=== PATIENT | female | born 1945 | race Caucasian/White ===

== ENCOUNTER 2022-08-04 08:21 | Outpatient (REF) | payer MEDICARE, SELFPAY ==
[2022-08-04 11:19] LABS: MANUAL DIFF FLAG NO
[2022-08-04 11:32] LABS: Basophils Percent Auto 0.6 % (0-2); Eosinophils Absolute Auto 0.1 X10*3/uL (0.0-0.4); Eosinophils Percent Auto 1.5 % (0-4); Hematocrit 43.3 % (37.0-47.0); Hemoglobin 14.1 g/dl (12.0-16.0); Imm Gran Abs Auto 0.01 X10*3/uL (0.00-0.03); Imm Gran Pct Auto 0.2 % (0.0-0.4); Lymphocytes Absolute Auto 2.1 X10*3/uL (1.2-4.9); Lymphocytes Percent Auto 40.3 % (20-40); Mean Corpuscular HGB Conc 32.6 g/dl (31.0-35.0); Mean Corpuscular Hemoglobin 31.3 pg (27.0-33.0); Mean Platelet Volume 11.3 fL (9.4-12.3); Monocytes Absolute Auto 0.5 X10*3/uL (0.1-1.2); Neutrophils Absolute Auto 2.5 x10*3/uL (2.0-8.3); Neutrophils Percent Auto 47.4 % (45-73); Platelet Count 287 X10*3/uL (160-400); Red Blood Count 4.51 X10*6/uL (4.20-5.50); Red Cell Distribution Width 13.1 % (11.0-16.0); White Blood Count 5.3 X10*3/uL (4.8-10.8)
[2022-08-04 12:45] LABS: Alanine Aminotransferase 21 U/L (0-31); Albumin Level 4.3 g/dL (3.5-5.0); Alkaline Phosphatase 85 U/L (39-117); Anion Gap 12 (12-20); Aspartate Amino Transferase 20 U/L (5-31); Bilirubin Total 0.8 mg/dL (0.0-1.0); Blood Urea Nitrogen 15 mg/dL (9-16); Calcium 9.4 mg/dL (8.4-10.2); Carbon Dioxide 28 mmol/L (22-29); Chloride 107 mmol/L (96-108); Cholesterol 213 mg/dL; Estimated Glomerular Filt Rate > 60; Glucose Fasting 108 mg/dL (60-99); HDL Cholesterol 52 mg/dL; LDL Cholesterol Calculated 132 mg/dl; Potassium 4.3 mmol/L (3.3-5.1); Sodium 143 mmol/L (135-145); Total Protein 6.6 g/dL (6.5-8.0); Triglycerides 148 mg/dL; Vitamin D 25-OH Total 23.6 ng/mL (>30)
== END 2022-08-04 08:22 | disposition home or self-care (01) ==
LOC: HO.HMGCLDS 08:21
PROVIDERS: PCP Internal Medicine; Visit Provider Internal Medicine
DX: E78.5 Hyperlipidemia, unspecified (principal); I10 Essential (primary) hypertension; M47.816 Spondylosis without myelopathy or radiculopathy, lumbar region
CPT/HCPCS: 36415; 80053; 80061; 82306; 84443; 85025

== ENCOUNTER 2022-08-09 08:24 | Outpatient (REF) | payer MEDICARE, SELFPAY ==
--- NOTE | ~2022-08-09 | MM_ITS ---
EXAMINATION: BONE DENSITOMETRY CLINICAL INDICATION: Asymptomatic menopausal state. COMPARISON: None (current study represents initial baseline exam). TECHNIQUE: Using a [employer] DXA System (software version: 13.1) manufactured by [employer], dual-energy x-ray absorptiometry was performed of the lumbar spine, left hip and left forearm radius 33%. The images are of good technical quality. Summary results are attached. FINDINGS: AP SPINE L1-L4 (excluding L3): The data of L1-L4 has been changed to exclude the L3 vertebral body because degenerative changes at this level may cause overestimation of the lumbar spine density. BMD 1.240 g/cm2, Z-score 2.5, T-score 0.6, normal. LEFT FEMUR, NECK: BMD 0.885 g/cm2, Z-score 1.0, T-score -1.1, osteopenia. LEFT FEMUR, TOTAL: BMD 1.005 g/cm2, Z-score 1.9, T-score 0.0, normal. LEFT FOREARM RADIUS 33%: BMD 0.710 g/cm2, Z-score 0.6, T-score -1.9, osteopenia. IDENTIFIED RISK FACTORS: Early menopause, secondary osteoporosis, hysterectomy. HISTORY OF FRACTURE: None listed. MEDICATIONS: Calcium supplements or multivitamin, vitamin D. MM/XR DEXA axial skeleton IMPRESSION: 1. DIAGNOSIS: Osteopenia based on the lowest T-score value of -1.9 in the forearm radius 33% applying World Health Organization criteria. 2. 10-YEAR FRACTURE RISK PREDICTION, FRAX: Major osteoporotic fracture (clinical spine, forearm, hip or shoulder) 11.0%. Hip fracture 2.0%. 3. Treatment Recommendations: NOF guidelines recommend consideration for treatment in postmenopausal women and men age 50 and older presenting with the following: -A hip or vertebral (clinical or morphometric) fracture. -T-score less than or equal to -2.5 at the femoral neck or spine after appropriate evaluation to exclude secondary causes. -Low bone mass at the hip or spine and a 10-year fracture probability by FRAX of greater than or equal to 3% for hip fracture or greater than or equal to 20% for major osteoporotic fracture based on the [place] adapted WHO algorithm. 4. Other Recommendations: All treatment decisions require clinical judgment and consideration of individual patient factors, including patient preferences, comorbidities, previous drug use, risk factors not captured in the FRAX model (e.g. frailty, falls, vitamin D deficiency, increased bone turnover, interval significant decline in bone density) and possible under or overestimation of fracture risk by FRAX. Additional medical evaluation for secondary cause of low bone mineral density may be appropriate. FUTURE SCAN RECOMMENDATION: People with diagnosed cases of osteoporosis or at high risk for fracture should have regular bone mineral density tests. For patients eligible for Medicare, routine testing is allowed once every 2 years. The testing frequency can be increased to one year for patients who have rapidly progressing disease, those who are receiving or discontinuing medical therapy to restore bone mass, or have additional risk factors.
== END 2022-08-09 08:25 | disposition home or self-care (01) ==
LOC: HO.MAMMO 08:24
PROVIDERS: PCP Internal Medicine; Visit Provider Internal Medicine
DX: Z13.820 Encounter for screening for osteoporosis (principal); Z78.0 Asymptomatic menopausal state
CPT/HCPCS: 77080

== ENCOUNTER → 2022-08-10 07:18 | Outpatient (REF) | payer MEDICARE, SELFPAY ==
--- NOTE | 2022-08-10 07:23 | CA_ITS ---
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 The visually estimated ejection fraction is between 65-70%. - No obvious valvular pathology seen on this study. Findings Left Ventricle Normal left ventricular cavity size. There is normal left ventricular wall thickness. The left ventricular systolic function is normal. The visually estimated ejection fraction is between 65-70%. There is no evidence of regional wall motion abnormalities. Diastolic function is normal for age. LV peak GLS -16.7%. Possible underestimation. Right Ventricle Normal right ventricular cavity size. There is normal right ventricular systolic function. Atria Both atria are normal in size. Aortic Valve There is a normal trileaflet aortic valve. There is no aortic valve stenosis. There is no aortic valve regurgitation. Mitral Valve The mitral valve appears normal. There is no mitral valve regurgitation. There is no mitral valve stenosis. Pulmonic Valve The pulmonic valve is likely normal. Tricuspid Valve There is no tricuspid valve regurgitation. Tricuspid regurgitation envelope is inadequate for calculation of right ventricular systolic pressure. Great Vessels The asc aorta is normal in size. Venous The inferior vena cava is normal in size and collapses greater than 50% with inspiration. Pericardium/Pleural Prominent epicardial adipose tissue noted. There is no evidence of pericardial effusion. Prior Study Comparison No prior study available for comparison. Recommendations, Care & Conclusions No obvious valvular pathology seen on this study. Measurements 2D Linear Measurements IVSd: 0.73 0.6-0.9/0.6-1.0 cm LVIDd: 4.42 3.9-5.3/4.2-5.9 cm LVIDd Index: 2.70 2.4-3.2/2.2-3.1 cm/m2 LVIDs: 3.28 2.0-3.6 cm LA Diam: 3.20 2.7-3.8/3.0-4.0 cm LAIDs Index: 1.95 1.5-2.3 cm/m2 LVOT Diam: 1.90 3.0+(-)1.3 cm 2D Systolic Function EF 4C: 67.90 >55% EF 2C: 77.50 >55% EF BiP: 72.70 >55% Mitral Valve MV Pk E: 0.66 MV PK A: 0.90 MV Decel Time: 165.00 E/A: 0.70 E'Lateral: 5.77 E'Medial: 4.79 E/E' Med: 13.90 E/E' Lat: 11.50 PHT: 48.00 MVA PHT: 4.58 Decel [place]: 4.02 Aortic Valve AoV Pk [place]: 1.08 AoV Mn [place]: 0.82 AoV VTI: 0.24 AoV Pk Grad: 5.00 Aov Mn Grad: 3.00 JENY Cont.VTI: 2.70 LVOT LVOT Pk [place]: 1.05 LVOT Mn [place]: 0.70 LVOT VTI: 0.22 LVOT Pk Grad: 4.00 LVOT Mn Grad: 2.00 LVOT Diam: 1.90 LVOT Area: 2.84 Diastolic Function MV Pk E: 0.66 MV Pk A: 0.90 E/A: 0.70 E'Medial: 4.79 E/E' Med: 13.90 E' Laterial: 5.77 E/E' Lat: 11.50 Right Ventricle TAPSE (mm): 17.10 TVS' [place]: 8.60 Tricuspid Valve RA Press: 3.00 Great Vessels Aorta Sinus of Valsalva: 2.90 2.0-3.5 cm Ao Asc: 2.90 2.1-3.4 cm Pulmonary Valve PV Pk [place]mo: 0.73 Peak PV Grad: 2.00 Updated in Other Vendor System with Status of Final Juaquin Macdonald MD electronically signed on 08/13/2022 1:10:11 PM with status of Final
== END ==
LOC: HO.CARD 07:18
PROVIDERS: PCP Internal Medicine; Visit Provider Internal Medicine
DX: I10 Essential (primary) hypertension (principal); R06.09 Other forms of dyspnea; R60.9 Edema, unspecified
CPT/HCPCS: 93306; 93356

== ENCOUNTER 2022-11-18 08:21 | Outpatient (REF) | payer MEDICARE, SELFPAY ==
--- NOTE | ~2022-11-18 | CT_ITS ---
EXAMINATION: CT ABDOMEN WITHOUT CONTRAST CLINICAL INFORMATION: Specified disorders of adrenal gland. COMPARISON: Ultrasound abdomen complete 02/22/2016. TECHNIQUE: Contiguous axial thin section helical images of the abdomen were performed without contrast. The data set was reformatted in the coronal and sagittal planes and reviewed on an independent workstation. This CT examination was performed using dose optimization techniques as appropriate, variously including the following: *Automated exposure control *Adjustment of mA and/or kV according to patient size (this includes techniques or standardized protocols for targeted exams where dose is matched to indication/reason for exam; i.e. extremities or head) *Use of iterative reconstruction technique DLP: 158 mGy-cm. FINDINGS: LUNG BASES: The lung bases are clear. Heart size is normal. LIVER, GALLBLADDER, BILIARY TREE: The liver is normal size, density. There is multiple hypodense lesions. The largest right hepatic lobe measures 2.0 cm and approximately 9 Hounsfield units. There is no intrahepatic ductal dilatation. There is a solitary 8 mm radiopaque gallstone. There is no gallbladder wall thickening. PANCREAS: The pancreas unremarkable. SPLEEN: Spleen is normal size and appears unremarkable. ADRENAL GLANDS AND KIDNEYS: There is a left adrenal lesion measuring 2.1 x 1.8 x 2.2 cm and 31 Hounsfield units. The right adrenal gland is normal. Both kidneys are normal size, shape and position. Radiopaque renal calculi or hydronephrosis seen. There is no perinephric stranding. BOWEL LOOPS: There is moderate scattered stool in colon. The small bowel loops are normal caliber. Appendix is not included in the [id number]. No inflammatory process seen abdomen or pelvis. LYMPH NODES: Normal. VASCULAR: Unremarkable. BONES: There is degenerative disc changes throughout the lumbar spine with moderate ventral spondylosis. No acute fracture or lytic process seen. CT/CT abdomen wo IV con IMPRESSION: Left adrenal 2.2 cm lesion measuring 35 HU, not an adenoma. Recommend followup with adrenal protocol with and without contrast and delayed images. Multiple liver lesions previously recorded as cysts by ultrasound. Moderate constipation. Gallstone without wall thickening. Fleischner guidelines were followed.
== END 2022-11-18 08:22 | disposition home or self-care (01) ==
LOC: HO.CT 08:21
PROVIDERS: PCP Internal Medicine; Visit Provider Internal Medicine
DX: E27.8 Other specified disorders of adrenal gland (principal)
CPT/HCPCS: 74150

== ENCOUNTER 2022-11-28 09:35 | Outpatient (REF) | payer MEDICARE, SELFPAY ==
[2022-11-28 12:50] LABS: Anion Gap 10 (12-20); Blood Urea Nitrogen 13 mg/dL (9-16); Calcium 8.9 mg/dL (8.4-10.2); Carbon Dioxide 28 mmol/L (22-29); Chloride 109 mmol/L (96-108); Estimated Glomerular Filt Rate > 60; Glucose Random 102 mg/dL (60-115); Potassium 4.3 mmol/L (3.3-5.1); Sodium 143 mmol/L (135-145)
[2022-11-28 12:57] LABS: Vitamin B12 1745 pg/mL (200-900); Vitamin D 25-OH Total 29.2 ng/mL (>30)
== END 2022-11-28 09:36 | disposition home or self-care (01) ==
LOC: HO.HMGCLDS 09:35
PROVIDERS: PCP Internal Medicine; Visit Provider Internal Medicine
DX: I10 Essential (primary) hypertension (principal); E78.5 Hyperlipidemia, unspecified
CPT/HCPCS: 36415; 80048; 82306; 82607; 82746

== ENCOUNTER 2022-12-05 12:57 | Outpatient (REF) | payer MEDICARE, SELFPAY ==
--- NOTE | ~2022-12-05 | CT_ITS ---
EXAMINATION: CT ABDOMEN WITHOUT AND WITH CONTRAST CLINICAL INFORMATION: Adrenal mass protocol. COMPARISON: CT abdomen without IV contrast 11/18/2022. TECHNIQUE: Contiguous axial thin section helical images of the abdomen were performed before and after the administration of oral contrast and 85 mL of Omnipaque 350 intravenous contrast. The data set was reformatted in the coronal and sagittal planes and reviewed on an independent workstation. This CT examination was performed using dose optimization techniques as appropriate, variously including the following: *Automated exposure control *Adjustment of mA and/or kV according to patient size (this includes techniques or standardized protocols for targeted exams where dose is matched to indication/reason for exam; i.e. extremities or head) *Use of iterative reconstruction technique DLP: 436 mGy-cm FINDINGS: LUNG BASES: Minimal atelectatic changes seen in the right and lower lobe anterobasal segment and left lung base. Heart size normal. LIVER, GALLBLADDER, AND BILIARY TREE: The liver is normal size and contour with multiple hypodense lesions most likely simple cysts. Largest left hepatic lobe cyst measures 1.3 cm and right hepatic lobe cyst measures 1.80 cm. There is a solitary 8 mm gallstone without wall thickening. PANCREAS: The pancreas is homogeneous in echotexture and appears unremarkable. SPLEEN: The spleen is normal size and density. ADRENAL GLANDS AND KIDNEYS: There is enlarged 1.9 cm left adrenal gland measuring 23 Hounsfield units precontrast, 79 Hounsfield units postcontrast and 35 HU on 15 minute delayed exam. The absolute washout is 61.7%. The related washout is 43.0% consistent with an adenoma. The right adrenal gland is normal. The kidneys are normal size and position. Postcontrast partially visualized upper pole kidneys are unremarkable. No radiopaque calculi seen. BOWEL LOOPS: Scattered stool is seen in the colon. The small bowel loops are unremarkable. Appendix is not in the [id number]. LYMPH NODES: No abnormal-size lymph node seen. VASCULAR: The aorta is ectatic but nondilated. BONES: No aggressive lytic or sclerotic process seen. CT/CT abdomen wo/w IV con IMPRESSION: 1. Left adrenal adenoma. 2. Multiple hepatic cysts. 3. Solitary gallstone without wall thickening. Fleischner guidelines were followed.
[2022-12-05] MEDS: iohexoL 350 MG/ML 100 ML INFUS..BTL 85 ML IV (14:11)
== END 2022-12-05 12:58 | disposition home or self-care (01) ==
LOC: HO.CT 12:57
PROVIDERS: Visit Provider Internal Medicine
DX: E27.8 Other specified disorders of adrenal gland (principal)
CPT/HCPCS: 74170; Q9967

== ENCOUNTER 2023-03-01 08:14 | Outpatient (REF) | payer MEDICARE, SELFPAY ==
[2023-03-01 11:58] LABS: Alanine Aminotransferase 17 U/L (0-31); Albumin Level 4.3 g/dL (3.5-5.0); Alkaline Phosphatase 76 U/L (39-117); Anion Gap 11 (12-20); Aspartate Amino Transferase 23 U/L (5-31); Bilirubin Total 0.8 mg/dL (0.0-1.0); Blood Urea Nitrogen 18 mg/dL (9-16); Calcium 9.5 mg/dL (8.4-10.2); Carbon Dioxide 27 mmol/L (22-29); Chloride 108 mmol/L (96-108); Cholesterol 218 mg/dL; Estimated Glomerular Filt Rate > 60; Glucose Fasting 105 mg/dL (60-99); HDL Cholesterol 49 mg/dL; LDL Cholesterol Calculated 142 mg/dl; Potassium 4.2 mmol/L (3.3-5.1); Sodium 142 mmol/L (135-145); Total Protein 6.8 g/dL (6.5-8.0); Triglycerides 136 mg/dL
[2023-03-01 12:23] LABS: Folate 14.6 ng/mL (> or = 4.0); Vitamin B12 1023 pg/mL (200-900); Vitamin D 25-OH Total 53.5 ng/mL (>30)
== END 2023-03-01 08:15 | disposition home or self-care (01) ==
LOC: HO.HMGCLDS 08:14
PROVIDERS: PCP Internal Medicine; Visit Provider Internal Medicine
DX: R06.09 Other forms of dyspnea (principal); I10 Essential (primary) hypertension; E78.5 Hyperlipidemia, unspecified
CPT/HCPCS: 36415; 80053; 80061; 82306; 82607; 82746

== ENCOUNTER 2023-04-28 08:20 | Outpatient (REF) | payer MEDICARE, SELFPAY ==
[2023-04-28 13:52] LABS: Vitamin B12 786 pg/mL (200-900)
== END 2023-04-28 08:21 | disposition home or self-care (01) ==
LOC: HO.HMGCLDS 08:20
PROVIDERS: PCP Internal Medicine; Visit Provider Internal Medicine
DX: R79.89 Other specified abnormal findings of blood chemistry (principal)
CPT/HCPCS: 36415; 82607; 82746

== ENCOUNTER 2023-05-04 10:35 | Outpatient (AMB) | payer MEDICARE, SELFPAY ==
[2023-05-04 10:54] VITALS: BP 116/64; PULSE 86; O2SAT 96; BMI 25.0
--- NOTE | 2023-05-04 10:54 | AM.OFFVISMDC ---
Intake Vital Signs 05/04/23 10:54 Height 5 ft 3 in Weight 141 lb BMI 25.0 BP 116/64 Blood Pressure Location Lt brachial Position Sitting Pulse 86 Pulse Source Pulse Oximeter Pulse Oximetry (%) 96 Oxygen Delivery Method Room Air Intake Visit Reasons: SWV [id number] Intake Note: Pt is here today for AWV. Pt states that she would like to ask dr Serrano about mammogram and pneumonia vaccine. Allergies lisinopril Adverse Reaction (Intermediate, Verified 05/04/23 10:54) cough Medication List - Last Reconciled 05/04/23 by Cristin Serrano MD acetaminophen ER (Tylenol Arthritis Pain) 650 mg PO Q12H atorvastatin 40 mg PO DAILY cholecalciferol (vitamin D3) 50 mcg PO DAILY orledksz-grv-azjn-FA-lutein (Centrum Silver Women) PO olmesartan 20 mg PO DAILY omeprazole 20 mg PO DAILY HPI HPI Comments History of Present Illness Details Pt presents for annual. Initiated the conversation about Advanced Directives. Advanced Directives help? patients prepare for current and future decisions about their medical treatment? and place of care. Discussed with patient that it is a process where a patients? current condition and prognosis are reviewed, their wishes for information? regarding their illness are elicited, and likely medical dilemmas are presented? and options discussed. The form can be amended as needed, reviewed yearly and? make changes as needed IPPE/AWV ? year old presents? for her ? Annual? Wellness Visit, initial visit.? Medical / Social History Reviewed? Past Medical History ?Yes? . ? Newborn? of Care / Care Team list updated ?Yes . ? Surgical/Hospitalization? History ?Yes . ? Current Medications? (including OTC and supplements) ?Yes . ? Family History ?Yes? . ? Tobacco? Control form ?Yes . ? AUDIT-C (Alcohol use) form? ?Yes . ? Illicit drug use in Social? History ?Yes . ? Current diagnosis of? depression? ?No ? Appropriate PHQ2/PHQ9? completed ?Yes . ? Data entered by ?Medical? Branch Operations Specialist and reviewed by provider ? Fall Risk ? Fall? History? Have you had any falls with? injury in the past year? ?No . ? Have you had two or more? falls in the past year? ?No . ? Fall Risk Assessment: ?No? falls in the past year . ? HRA filled out by? the patient, reviewed by Provider and scanned. ? IPPE/AWV ? Balance? [place]berg? ?Yes . ? Tandem? walk ?Yes . ? Walk and? Turn ?Yes . ? Rise from? sit to stand ?Yes . ?Vision? Corrective? lens ?Yes ? Vision? screen ? Up-to-date, has an appointment [] for vision? screening and glaucoma screening ?Hearing? Whisper? test ?pass .? Initiated the conversation about Advanced Directives. Advanced Directives help? patients prepare for current and future decisions about their medical treatment? and place of care. Discussed with patient that it is a process where a patients? current condition and prognosis are reviewed, their wishes for information? regarding their illness are elicited, and likely medical dilemmas are presented? and options discussed. The form can be amended as needed, reviewed yearly and? make changes as needed Written? Plan?Completed. See Patient? Documents. [facility] Medical History (Updated 05/04/23 @ 11:59 by Cristin Serrano MD) Hypertension Family History Father Hypertension Mother Breast cancer Diabetes Sister Diabetes Social History Household Members Other:: , from [place], 2 sons (one from COVID), Housing: House Patient Tobacco Use Status: Never used Tobacco e-Cigarette/Vaping Use: Never Used Current occupational status: retired Cognitive needs: No Hearing needs: No Vision needs: Yes Questionnaire Medicare Wellness Checkup [age] What gender do you identify with?: female During the past 4 weeks, how much have you been bothered by emotional problems such as feeling anxious, depressed, irritable, sad or downhearted, and blue?: not at all During the past 4 weeks, has your physical & emotional health limited your social activities with family, friends, neighbors, or groups?: not at all During the past 4 weeks, how much bodily pain have you generally had?: very mild pain During the past 4 weeks, was someone available to help you if you needed & wanted help?: no, not at all During the past 4 weeks, what was the hardest physical activity you could do for at least 2 minutes?: moderate Can you get to places out of walking distance without help? (For eg., can you travel alone on buses, taxis or drive your car?): Yes Can you go shopping for groceries or clothes without someone's help?: Yes Can you prepare your own meals?: Yes Can you do your housework without help?: Yes Because of any health problems, do you need the help of another person with your personal care needs such as eating, bathing, dressing or getting around the house?: No Can you handle your own money without help?: Yes During the past 4 weeks, how would you rate your health in general?: very good During the past 4 weeks how have things been going for you?: pretty well Are you having difficulties driving your car?: no Do you always fasten your seat belt when you are in a car?: yes, usually During past 4 weeks, have you been bothered by the following: never: Falling or dizzy when standing up, Sexual problems?, Trouble eating well?, Teeth or denture problems? and Problems using the telephone? and seldom: Tiredness or fatigue? Have you fallen 2 or more times in the past year?: No Are you afraid of falling?: No Are you a smoker?: no During the past 4 weeks, how many drinks of wine, beer, or other alcoholic beverages did you have?: no alcohol at all Do you exercise for about 20 minutes 3 or more times a week?: yes, some of the time Have you been given information to help with the following?: yes: Keeping track of your medications? and no: Hazards in your house that might hurt you? How often do you have trouble taking medicines the way you have been told to take them?: I always take medicine as prescribed How confident are you that you can control & manage most of your health problems?: very confident What is your race?: White Mini Mental State Exam (MMSE) Orientation What is the (year) (season) (date) (day) (month)?: year, season, date, day and month Where are we (state) (county) (town or city) (hospital) (floor)?: state, county, town or city, hospital/clinic and floor Registration Name of 3 unrelated objects clearly and slowly, then ask patient to repeat all 3 of them. (1st repeat determines score. Make sure they can repeat all three): object 1, object 2 and object 3 Attention & Calculation (CHOOSE ONE) Ask pt to begin with 100 & count backward by 7. Stop after 5 repeats. If pt cannot ask them to spell the word WORLD backward.: 93 Spell WORLD backwards (DLROW): 5 letters Recall Ask patient to repeat the 3 items from question #3.: object 1, object 2 and object 3 Language Show patient a wristwatch & ask what it is. Repeat for pencil.: watch and pencil Ask the patient to repeat the phrase 'No ifs, ands, or buts' after you.: correct Ask the patient to 'take a piece of paper with their right hand' 'fold paper in half' 'place paper on floor': take paper in right hand, fold paper in half and place paper on floor Print the sentence 'CLOSE YOUR EYES' on a piece. If patient actually closes eyes then score.: followed written direction Give patient a blank piece of paper & ask to write a sentence. Score if it contains a noun & verb.: sentence contains subject and verb Ask patient to copy figure of intersecting pentagons exactly. Score if all 10 angles & 2 intersects are included.: all 10 angles present & 2 are intersected Score Score: 31 Activity of Daily Living Bathing - sponge bath, tub bath or shower: receives no assistance (gets in/out by self, if usual bathing means Dressing - getting clothes from closets & drawers, including inner/outer garments & fasteners.: gets clothes & gets completely dressed without help Toileting - going to the 'toilet room' for urine/bowel elimination & cleaning self/arranging clothes: goes to toilet room, cleans self, arranges clothes without help Transfer: moves in & out of bed and chair without help (may use support object) Continence: controls urination/bowel movements completely by self Feeding: feeds self without help Total Score: 0 Information obtained from: patient Using telephone: independent Traveling: independent Shopping: independent Preparing meals: independent Housework: independent Taking medicine: independent Managing money: independent PHQ-9 Over the last 2 weeks, how often have you been bothered by any of the following problems? 1. Little interest or pleasure in doing things: not at all 2. Feeling down, depressed, or hopeless: not at all 3. Trouble falling or staying asleep, or sleeping too much: not at all 4. Feeling tired or having little energy: not at all 5. Poor appetite or overeating: not at all 6. Feeling bad about yourself - or that you are a failure or have let yourself or your family down: not at all 7. Trouble concentrating on things, such as reading the newspaper or watching television: not at all 8. Moving or speaking so slowly that other people could have noticed. Or the opposite - being so fidgety or restless that you have been moving around a lot more than usual: not at all 9. Thoughts that you would be better off or of hurting yourself in some way: not at all Total score: 0 Depression Screening Interpretation: Negative Source: Developed by Drs. Luis Fernandes, Michaela Quiles, Adrián Gonzales and colleagues, with an educational gaudencio from [employer]. Review of Systems Const All systems reviewed & are unremarkable except as noted in HPI and below Reports no additional complaints Eyes Reports no additional complaints ENT Reports no additional complaints Card Reports no additional complaints Resp Reports no additional complaints Reports no additional complaints Skin/Breast Reports system reviewed and no additional complaints, except as documented Physical Exam Vital Signs: Last Vital Signs Pulse 86 05/04/23 10:54 BP 116/64 05/04/23 10:54 Pulse Ox 96 05/04/23 10:54 Oxygen Delivery Method Room Air 05/04/23 10:54 BMI result Body Mass Index 25.0 HEENT Head: Yes normal to inspection Ears: hearing grossly normal bilaterally General nose exam: Normal external nose present Throat: Yes posterior oropharynx normal Resp Effort & Inspection: normal respiratory effort Auscultation: clear to auscultation bilaterally Cardio Rhythm: regular rhythm Heart sounds: S1 normal heart sound present and S2 normal heart sound present GI Inspection: Yes normal to inspection Palpation (GI): Soft to palpation Percussion: Yes normal to percussion Auscultation: normal bowel sounds Extrem General: Yes no clubbing, cyanosis or edema Immunizations pneumoc 20-whit conj-dip cr(PF) Performing Provider: Cristin Serrano MD Administered by: PERICO Manuel on 05/04/23 11:57 Dose Route Admin Location Lot Number Expiration Date [facility] Career Development Facilitator 0.5 mL IM Right Deltoid [id number] 07/18/24 [id number] uControlETH/PFIZER VIS Given Date VIS Provided VIS Publication Date 05/04/23 Single Vaccine 21 Eligibility Eligibility Date Funding Source Not [facility] Eligible 05/04/23 Private Assessment & Plan Assessment & Plan (1) Hyperlipidemia: Code(s): E78.5 - Hyperlipidemia, unspecified Plan: Continue atorvastatin and low-cholesterol diet, follow-up in 6 months with a fasting labs before (2) Hypertension: Code(s): I10 - Essential (primary) hypertension Plan: Continue olmesartan (3) Adrenal adenoma: Comment: on MR/CT abd: Left adrenal mass adenoma 1.4 cm 03/08, repeat CT 01/08 1.9 cm L adrenal gland adenoma, recheck 1 year Code(s): D35.00 - Benign neoplasm of unspecified adrenal gland Plan: Repeat CT in 1 year (4) Vitamin D deficiency: Code(s): E55.9 - Vitamin D deficiency, unspecified Plan: Restart vit D supplement in the winter (5) Annual physical exam: Code(s): Z00.00 - Encounter for general adult medical examination without abnormal findings Plan: Well-balanced diet and regular physical activity discussed with the patient Orders: Orders MM screening mammo BI Today Z12.31 - Encounter for screening mammogram for malignant neoplasm of breast Comprehensive [place]. Panel Fast 6 Months D35.00 - Benign neoplasm of unspecified adrenal gland, E55.9 - Vitamin D deficiency, unspecified, E78.5 - Hyperlipidemia, unspecified, I10 - Essential (primary) hypertension Lipid Panel 6 Months D35.00 - Benign neoplasm of unspecified adrenal gland, E78.5 - Hyperlipidemia, unspecified, I10 - Essential (primary) hypertension Vitamin D 25-OH Total 6 Months D35.00 - Benign neoplasm of unspecified adrenal gland, E78.5 - Hyperlipidemia, unspecified, I10 - Essential (primary) hypertension Complete Blood Count Auto Diff 6 Months D35.00 - Benign neoplasm of unspecified adrenal gland, E78.5 - Hyperlipidemia, unspecified, I10 - Essential (primary) hypertension Pneumococcal 20 Immunization Today Z23 - Encounter for immunization Medications: New pneumoc 20-whit conj-dip cr(PF) 0.5 mL IM ONCE 0.5 mL 0RF Z23 - Encounter for immunization cholecalciferol (vitamin D3) 50 mcg (2 x 25 mcg (1,000 unit)) PO DAILY 90 caps 1RF Quality Reporting (2019) Depression/Bipolar (159/160/161/177) PHQ-9: Total score: 0 Coding Level of Care Code Medicare Subsequent (G0439) Diagnoses Hyperlipidemia E78.5 Hypertension I10 Adrenal adenoma D35.00 Vitamin D deficiency E55.9 Annual physical exam Z00.00 CPT Codes Advance Care Planning - Time spent: 1-15 minutes, not on file ([id number]) Advance Care Planning Advance Care Planning discussion: Exists, not on file Forms completed: Health Care Proxy Time spent: 1-15 minutes, not on file
== END 2023-05-04 12:00 | disposition home or self-care (01) ==
PROVIDERS: Visit Provider Internal Medicine
DX: E78.5 Hyperlipidemia, unspecified (principal); I10 Essential (primary) hypertension; D35.00 Benign neoplasm of unspecified adrenal gland; E55.9 Vitamin D deficiency, unspecified; Z00.00 Encounter for general adult medical examination without abnormal findings; Z23 Encounter for immunization
CPT/HCPCS: 1124F; 90471; 90677; G0439

== ENCOUNTER 2023-06-08 09:08 | Outpatient (REF) | payer MEDICARE, SELFPAY ==
--- NOTE | ~2023-06-08 | MM_ITS ---
EXAMINATION: MM SCREENING DIGITAL BREAST TOMOSYNTHESIS, BILATERAL CLINICAL INFORMATION: Screening. Asymptomatic. COMPARISON: Mammography: This study is compared with prior exams dating back to 2020. TECHNIQUE: Digital breast tomosynthesis is performed in both the craniocaudal and mediolateral oblique views along with computer-aided detection (CAD). Synthesized 2D images are generated from the tomosynthesis. FINDINGS: The breasts are heterogeneously dense, which may obscure small masses (ACR BI-RADS breast composition Category c). There are no significant masses, abnormal calcifications, or other abnormalities. MM/MM tomosynthesis screening BI IMPRESSION: No mammographic evidence of malignancy. ASSESSMENT: BI-RADS BI-RADS 1 - Negative RECOMMENDATION: Routine annual mammography screening. 1 year F/U This examination should not preclude the clinical evaluation of a suspicious palpable abnormality. This patient's information was entered into a reminder system with a target due date for their next mammogram.
== END 2023-06-08 09:09 | disposition home or self-care (01) ==
LOC: HO.MAMMO 09:08
PROVIDERS: PCP Internal Medicine; Visit Provider Internal Medicine
DX: Z12.31 Encounter for screening mammogram for malignant neoplasm of breast (principal)
CPT/HCPCS: 77063; 77067

== ENCOUNTER → 2023-06-08 09:30 | Outpatient (BNV) | payer MEDICARE, SELFPAY | PROVIDERS: PCP Internal Medicine; Visit Provider Radiology Diagnostic Radiology | DX: Z12.31 Encounter for screening mammogram for malignant neoplasm of breast (principal) | CPT/HCPCS: 77063; 77067 ==

== ENCOUNTER 2023-09-01 12:13 | Outpatient (AMB) | payer MEDICARE, SELFPAY ==
--- NOTE | 2023-09-01 12:29 | MHC.PC.OV ---
Vital Signs 09/01/23 12:30 Height 5 ft 3 in Weight 137 lb BMI 24.3 BP 124/78 Blood Pressure Location Lt brachial Position Sitting Pulse 61 Pulse Source Pulse Oximeter Pulse Oximetry (%) 96 Oxygen Delivery Method Room Air Intake Visit Reasons: Pre op cataract surgery on 09/25/23 and 10/02/23 Intake Note: pt is here today for op cataract surgery on 09/25/23 and 10/02/23 Allergies lisinopril Adverse Reaction (Intermediate, Verified 09/01/23 12:52) cough Medication List - Last Reconciled 09/01/23 by Cristin Serrano MD acetaminophen ER (Tylenol Arthritis Pain) 650 mg PO Q12H atorvastatin 40 mg PO DAILY cholecalciferol (vitamin D3) 50 mcg (2 x 25 mcg (1,000 unit)) PO DAILY gesvlmzv-tkz-kkrl-FA-lutein (Centrum Silver Women) PO olmesartan 20 mg PO DAILY omeprazole 20 mg PO DAILY Tobacco use date assessed: 09/01/23 Last assessed Fall Risk: 09/01/23 Dental Screening Dental Screen Date: 09/01/23 Did you have a dental visit in the last 12 months?: Yes Did you have a dental problem in the last 6 months where you did not have access to dental care?: No Was dental information given to patient?: Patient has dentist HPI Pre op cataract surgery on 09/25/23 and 10/02/23 HPI Details Pt presents for preop for cataract surgery. HTN and hyperlipid, stable on meds PFSH Medical History (Updated 09/01/23 @ 13:40 by Cristin Serrano MD) Hypertension Family History Father Hypertension Mother Breast cancer Diabetes Sister Diabetes Social History Household Members Other:: , from [place], 2 sons (one from COVID), Housing: House Patient Tobacco Use Status: Never used Tobacco e-Cigarette/Vaping Use: Never Used Current occupational status: retired Cognitive needs: No Hearing needs: No Vision needs: Yes Questionnaire PHQ-9 Over the last 2 weeks, how often have you been bothered by any of the following problems? 1. Little interest or pleasure in doing things: not at all 2. Feeling down, depressed, or hopeless: not at all 3. Trouble falling or staying asleep, or sleeping too much: not at all 4. Feeling tired or having little energy: not at all 5. Poor appetite or overeating: not at all 6. Feeling bad about yourself - or that you are a failure or have let yourself or your family down: not at all 7. Trouble concentrating on things, such as reading the newspaper or watching television: not at all 8. Moving or speaking so slowly that other people could have noticed. Or the opposite - being so fidgety or restless that you have been moving around a lot more than usual: not at all 9. Thoughts that you would be better off or of hurting yourself in some way: not at all Total score: 0 Depression Screening Interpretation: Negative Depression Screening Done: Yes Source: Developed by Drs. Luis Fernandes, Michaela Quiles, Adrián Gonzales and colleagues, with an educational gaudencio from [employer]. Thrive Questionnaire Date Thrive assessed: 09/01/23 I am a: Patient What is your living situation today?: I have a steady place to live Within the past 12 months, did the food you bought not last and you didn't have the money to get more?: Never true Within the past 12 months, did you worry whether your food would run out before you got money to buy more?: Never true Do you have trouble paying for medicines?: No Do you have trouble getting transportation to medical appointments?: No Do you have trouble paying your heating and electricity bill?: No Do you have trouble taking care of your child, family member or friend?: No Do you have trouble with day-to-day activities such as bathing, preparing meals, shopping, managing finances, etc.?: No Are you currently unemployed and looking for a job?: No Are you interested in more education?: No Please select the resources that you would like help with: None EVELIO-7 AMB Questionnaire EVELIO-7 Date EVELIO - 7 assessed: 09/01/23 Feeling nervous, anxious, or on edge: 0 = Not at all Not being able to stop or control worryin = Not at all Worrying too much about different things: 0 = Not at all Trouble relaxin = Not at all Being so restless that it is hard to sit still: 0 = Not at all Becoming easily annoyed or irritable: 0 = Not at all Feeling afraid as if something awful might happen: 0 = Not at all Total EVELIO-7 score (0-4 normal; 5-9 mild; 10-14 moderate; 15-21 severe): 0 Source: Developed by Drs. Luis Fernandes, Michaela Quiles, Adrián Gonzales and colleagues, with an educational gaudencio from [employer]. EVELIO-7 Assessment Billing EVELIO-7 Assessment Tool: EVELIO-7 Assessment 52880 Review of Systems Const All systems reviewed & are unremarkable except as noted in HPI and below Reports no additional complaints Eyes Reports no additional complaints ENT Reports no additional complaints Card Reports no additional complaints Resp Reports no additional complaints GI Reports no additional complaints Reports no additional complaints Physical exam (Primary Care) Vital Signs: Last Vital Signs Pulse 61 09/01/23 12:30 BP 124/78 09/01/23 12:30 Pulse Ox 96 09/01/23 12:30 Oxygen Delivery Method Room Air 09/01/23 12:30 BMI result Body Mass Index 24.3 Tobacco/Smoking Status: Tobacco use Status Tobacco use date assessed 09/01/23 09/01/23 12:31 Patient Tobacco Use Status Never used Tobacco 09/01/23 12:31 e-Cigarette/Vaping Use Never Used 09/01/23 12:31 PHQ-9: PHQ-9 Score PHQ-9: Total score 0 09/01/23 12:56 Depression Screening Interpretation: Negative Thrive Assessment: Date of Thrive Assessment Date Thrive assessed 09/01/23 09/01/23 12:56 Const General: no acute distress HENMT Ears: hearing grossly normal bilaterally Neck Neck: Yes supple Resp Effort & Inspection: normal respiratory effort Auscultation: clear to auscultation bilaterally Cardio Rhythm: regular rhythm Heart sounds: S1 normal heart sound present and S2 normal heart sound present GI Inspection: Yes normal to inspection Palpation (GI): Soft to palpation Percussion: Yes normal to percussion Auscultation: normal bowel sounds Assessment and Plan Assessment & Plan (1) Vitamin D deficiency: Code(s): E55.9 - Vitamin D deficiency, unspecified (2) Hyperlipidemia: Code(s): E78.5 - Hyperlipidemia, unspecified Plan: cont statin (3) Hypertension: Code(s): I10 - Essential (primary) hypertension Plan: cont meds (4) Cataract: Code(s): H26.9 - Unspecified cataract Plan: Patient is medically cleared for cataract surgery Orders: Orders Comprehensive [place]. Panel Fast Today E55.9 - Vitamin D deficiency, unspecified, E78.5 - Hyperlipidemia, unspecified, I10 - Essential (primary) hypertension Complete Blood Count Auto Diff Today E55.9 - Vitamin D deficiency, unspecified, E78.5 - Hyperlipidemia, unspecified, I10 - Essential (primary) hypertension Lipid Panel Today E55.9 - Vitamin D deficiency, unspecified, E78.5 - Hyperlipidemia, unspecified, I10 - Essential (primary) hypertension TSH reflex Free T4 Today E55.9 - Vitamin D deficiency, unspecified, E78.5 - Hyperlipidemia, unspecified, I10 - Essential (primary) hypertension Coding Level of Care Code Est Pt Level 4 (97618) Diagnoses Vitamin D deficiency E55.9 Hyperlipidemia E78.5 Hypertension I10 Cataract H26.9 Additional Codes EVELIO-7 Assessment Billing - EVELIO-7 Assessment Tool: EVELIO-7 Assessment 91254 ([id number])
[2023-09-01 12:30] VITALS: BP 124/78; PULSE 61; O2SAT 96; BMI 24.3
== END 2023-09-01 13:40 | disposition home or self-care (01) ==
PROVIDERS: PCP Internal Medicine; Visit Provider Internal Medicine
DX: E55.9 Vitamin D deficiency, unspecified (principal); E78.5 Hyperlipidemia, unspecified; I10 Essential (primary) hypertension; H26.9 Unspecified cataract
CPT/HCPCS: 99214

== ENCOUNTER 2023-09-04 09:22 | Outpatient (REF) | payer MEDICARE, SELFPAY ==
[2023-09-04 11:35] LABS: MANUAL DIFF FLAG NO
[2023-09-04 11:38] LABS: Basophils Percent Auto 0.4 % (0-2); Eosinophils Absolute Auto 0.1 X10*3/uL (0.0-0.4); Eosinophils Percent Auto 2.3 % (0-4); Hematocrit 41.2 % (37.0-47.0); Hemoglobin 13.8 g/dl (12.0-16.0); Imm Gran Abs Auto 0.02 X10*3/uL (0.00-0.03); Imm Gran Pct Auto 0.4 % (0.0-0.4); Lymphocytes Absolute Auto 2.2 X10*3/uL (1.2-4.9); Lymphocytes Percent Auto 41.4 % (20-40); Mean Corpuscular HGB Conc 33.5 g/dl (31.0-35.0); Mean Corpuscular Volume 95.6 fL (80.0-98.0); Mean Platelet Volume 11.3 fL (9.4-12.3); Monocytes Absolute Auto 0.5 X10*3/uL (0.1-1.2); Monocytes Percent Auto 8.7 % (2-11); Neutrophils Absolute Auto 2.5 x10*3/uL (2.0-8.3); Neutrophils Percent Auto 46.8 % (45-73); Platelet Count 325 X10*3/uL (160-400); Red Blood Count 4.31 X10*6/uL (4.20-5.50); Red Cell Distribution Width 13.1 % (11.0-16.0); White Blood Count 5.3 X10*3/uL (4.8-10.8)
[2023-09-04 12:29] LABS: Alanine Aminotransferase 18 U/L (0-31); Albumin Level 4.2 g/dL (3.5-5.0); Alkaline Phosphatase 62 U/L (39-117); Anion Gap 13 (12-20); Aspartate Amino Transferase 24 U/L (5-31); Bilirubin Total 0.7 mg/dL (0.0-1.0); Blood Urea Nitrogen 18 mg/dL (9-16); Calcium 9.3 mg/dL (8.4-10.2); Carbon Dioxide 26 mmol/L (22-29); Chloride 107 mmol/L (96-108); Cholesterol 174 mg/dL (<200); Estimated Glomerular Filt Rate > 60; Glucose Fasting 88 mg/dL (60-99); HDL Cholesterol 41 mg/dL (>40); LDL Cholesterol Calculated 110 mg/dL (<100); Potassium 4.3 mmol/L (3.3-5.1); Sodium 142 mmol/L (135-145); Total Protein 6.5 g/dL (6.5-8.0); Triglycerides 118 mg/dL (<150)
[2023-09-04 12:47] LABS: TSH reflex Free T4 1.17 uIU/mL (0.32-4.0)
== END 2023-09-04 09:23 | disposition home or self-care (01) ==
LOC: HO.HMGCLDS 09:22
PROVIDERS: PCP Internal Medicine; Visit Provider Internal Medicine
DX: I10 Essential (primary) hypertension (principal); E78.5 Hyperlipidemia, unspecified; E55.9 Vitamin D deficiency, unspecified
CPT/HCPCS: 36415; 80053; 80061; 84443; 85025

== ENCOUNTER 2023-11-02 08:18 | Outpatient (REF) | payer MEDICARE, SELFPAY ==
[2023-11-02 11:37] LABS: MANUAL DIFF FLAG NO
[2023-11-02 11:53] LABS: Basophils Percent Auto 0.3 % (0-2); Eosinophils Absolute Auto 0.1 X10*3/uL (0.0-0.4); Hematocrit 40.1 % (37.0-47.0); Hemoglobin 13.3 g/dl (12.0-16.0); Lymphocytes Percent Auto 31.6 % (20-40); Mean Corpuscular HGB Conc 33.2 g/dl (31.0-35.0); Mean Corpuscular Hemoglobin 31.6 pg (27.0-33.0); Mean Corpuscular Volume 95.2 fL (80.0-98.0); Monocytes Absolute Auto 0.6 X10*3/uL (0.1-1.2); Monocytes Percent Auto 9.8 % (2-11); Neutrophils Absolute Auto 3.6 x10*3/uL (2.0-8.3); Neutrophils Percent Auto 57.3 % (45-73); Platelet Count 316 X10*3/uL (160-400); Red Blood Count 4.21 X10*6/uL (4.20-5.50); Red Cell Distribution Width 13.3 % (11.0-16.0); White Blood Count 6.2 X10*3/uL (4.8-10.8)
[2023-11-02 12:17] LABS: Alanine Aminotransferase 17 U/L (0-31); Albumin Level 4.2 g/dL (3.5-5.0); Alkaline Phosphatase 72 U/L (39-117); Anion Gap 12 (12-20); Aspartate Amino Transferase 24 U/L (5-31); Bilirubin Total 0.7 mg/dL (0.0-1.0); Blood Urea Nitrogen 13 mg/dL (9-16); Calcium 9.4 mg/dL (8.4-10.2); Carbon Dioxide 29 mmol/L (22-29); Chloride 107 mmol/L (96-108); Cholesterol 173 mg/dL (<200); Estimated Glomerular Filt Rate > 60; Glucose Fasting 99 mg/dL (60-99); HDL Cholesterol 41 mg/dL (>40); LDL Cholesterol Calculated 113 mg/dL (<100); Potassium 4.9 mmol/L (3.3-5.1); Sodium 143 mmol/L (135-145); Total Protein 6.7 g/dL (6.5-8.0); Triglycerides 96 mg/dL (<150)
[2023-11-02 12:21] LABS: TSH reflex Free T4 1.36 uIU/mL (0.32-4.0); Vitamin D 25-OH Total 51.3 ng/mL (>30)
== END 2023-11-02 08:19 | disposition home or self-care (01) ==
LOC: HO.HMGCLDS 08:18
PROVIDERS: PCP Internal Medicine; Visit Provider Internal Medicine
DX: I10 Essential (primary) hypertension (principal); E78.5 Hyperlipidemia, unspecified; E55.9 Vitamin D deficiency, unspecified
CPT/HCPCS: 36415; 80053; 80061; 82306; 84443; 85025

== ENCOUNTER 2023-11-06 09:49 | Outpatient (AMB) | payer MEDICARE, SELFPAY ==
[2023-11-06 09:56] VITALS: BP 122/74; PULSE 65; O2SAT 96; BMI 23.8
--- NOTE | 2023-11-06 09:56 | A.OFFPC_ITS ---
Vital Signs 11/06/23 09:56 Height 5 ft 3 in Weight 134 lb 6 oz BMI 23.8 BP 122/74 Blood Pressure Location Lt brachial Position Sitting Pulse 65 Pulse Source Pulse Oximeter Pulse Oximetry (%) 96 Oxygen Delivery Method Room Air Intake Visit Reasons: 6 month follow up Intake Note: Pt is here today for 6 months follow up visit. It Systems Manager Required: No Accompanied by: Self / Same As Patient Allergies lisinopril Adverse Reaction (Intermediate, Verified 11/06/23 10:09) cough Medication List - Last Reconciled 11/06/23 by Cristin Serrano MD acetaminophen ER (Tylenol Arthritis Pain) 650 mg PO Q12H atorvastatin 40 mg PO DAILY cholecalciferol (vitamin D3) 50 mcg (2 x 25 mcg (1,000 unit)) PO DAILY umjpdxjs-glv-btxx-FA-lutein (Centrum Silver Women) PO olmesartan 20 mg PO DAILY omeprazole 20 mg PO DAILY Tobacco use date assessed: 11/06/23 Fall risk assessment: No Falls in past year Last assessed Fall Risk: 11/06/23 Dental Screening Dental Screen Date: 11/06/23 Did you have a dental visit in the last 12 months?: Yes Did you have a dental problem in the last 6 months where you did not have access to dental care?: No Was dental information given to patient?: Patient has dentist HPI 6 month follow up HPI Details Pt presents for HTN, hyperlipid, stable on meds. [facility] Medical History (Updated 11/06/23 @ 11:04 by Cristin Serrano MD) GERD (gastroesophageal reflux disease) Vitamin D deficiency Hypertension Surgical History S/P cataract extraction Family History Father Hypertension Mother Breast cancer Diabetes Sister Diabetes Social History Household Members Other:: , from [place], 2 sons (one from COVID), Housing: House Patient Tobacco Use Status: Never used Tobacco e-Cigarette/Vaping Use: Never Used Current occupational status: retired Cognitive needs: No Hearing needs: No Vision needs: Yes Questionnaire PHQ-9 Over the last 2 weeks, how often have you been bothered by any of the following problems? 1. Little interest or pleasure in doing things: not at all 2. Feeling down, depressed, or hopeless: not at all 3. Trouble falling or staying asleep, or sleeping too much: several days 4. Feeling tired or having little energy: several days 5. Poor appetite or overeating: several days 6. Feeling bad about yourself - or that you are a failure or have let yourself or your family down: not at all 7. Trouble concentrating on things, such as reading the newspaper or watching television: not at all 8. Moving or speaking so slowly that other people could have noticed. Or the opposite - being so fidgety or restless that you have been moving around a lot more than usual: not at all 9. Thoughts that you would be better off or of hurting yourself in some way: not at all Total score: 3 Depression Screening Interpretation: Negative Depression Screening Done: Yes 64930 - PHQ-9 Billing: Yes Source: Developed by Drs. Luis Fernandes, Michaela Quiles, Adrián Gonzales and colleagues, with an educational gaudencio from [employer]. Thrive Questionnaire Date Thrive assessed: 11/06/23 I am a: Patient What is your living situation today?: I have a steady place to live Within the past 12 months, did the food you bought not last and you didn't have the money to get more?: Never true Within the past 12 months, did you worry whether your food would run out before you got money to buy more?: Never true Do you have trouble paying for medicines?: No Do you have trouble getting transportation to medical appointments?: No Do you have trouble paying your heating and electricity bill?: No Do you have trouble taking care of your child, family member or friend?: No Do you have trouble with day-to-day activities such as bathing, preparing meals, shopping, managing finances, etc.?: No Are you currently unemployed and looking for a job?: No Are you interested in more education?: No Please select the resources that you would like help with: None Currently or been in a relationship where the following occur: no concerns reported THRIVE Score: 0 AUDIT C Alcohol Use Questionnaire (AUDIT-C) 1. How often do you have a drink containing alcohol?: Never 3. How often do you have six or more drinks on one occasion?: Never Total Score: 0 EVELIO-7 AMB Questionnaire EVELIO-7 Date EVELIO - 7 assessed: 11/06/23 Feeling nervous, anxious, or on edge: 0 = Not at all Not being able to stop or control worryin = Not at all Worrying too much about different things: 0 = Not at all Trouble relaxin = Not at all Being so restless that it is hard to sit still: 0 = Not at all Becoming easily annoyed or irritable: 0 = Not at all Feeling afraid as if something awful might happen: 0 = Not at all Total EVELIO-7 score (0-4 normal; 5-9 mild; 10-14 moderate; 15-21 severe): 0 Source: Developed by Drs. Luis Fernandes, Michaela Quiles, Adrián Gonzales and colleagues, with an educational gaudencio from [employer]. EVELIO-7 Assessment Billing EVELIO-7 Assessment Tool: EVELIO-7 Assessment 30365 Review of Systems Const All systems reviewed & are unremarkable except as noted in HPI and below Reports no additional complaints Eyes Reports no additional complaints ENT Reports no additional complaints Card Reports no additional complaints Resp Reports no additional complaints GI Reports no additional complaints Reports no additional complaints Musc Reports no additional complaints Physical exam (Primary Care) Vital Signs: Last Vital Signs Pulse 65 11/06/23 09:56 BP 122/74 11/06/23 09:56 Pulse Ox 96 11/06/23 09:56 Oxygen Delivery Method Room Air 11/06/23 09:56 BMI result Body Mass Index 23.8 Tobacco/Smoking Status: Tobacco use Status Tobacco use date assessed 11/06/23 11/06/23 09:59 Patient Tobacco Use Status Never used Tobacco 11/06/23 09:59 e-Cigarette/Vaping Use Never Used 11/06/23 09:59 PHQ-9: PHQ-9 Score PHQ-9: Total score 3 11/06/23 10:11 Depression Screening Interpretation: Negative Thrive Assessment: Date of Thrive Assessment Date Thrive assessed 11/06/23 11/06/23 10:11 Currently or been in a relationship where the following occur: no concerns reported Const General: no acute distress HENMT Ears: hearing grossly normal bilaterally General nose exam: Normal external nose present Face and sinus: Yes normal facial exam Mouth: Normal oral and palatal mucosa present Throat: Yes posterior oropharynx normal Eyes General: appearance normal, both eyes and all related structures Neck Neck: Yes no lymphadenopathy and Yes supple Resp Effort & Inspection: normal respiratory effort Auscultation: clear to auscultation bilaterally Cardio Rhythm: regular rhythm Heart sounds: S1 normal heart sound present and S2 normal heart sound present GI Inspection: Yes normal to inspection Palpation (GI): Soft to palpation Percussion: Yes normal to percussion Auscultation: normal bowel sounds Assessment and Plan Assessment & Plan (1) Hyperlipidemia: Code(s): E78.5 - Hyperlipidemia, unspecified Plan: Continue statin (2) Hypertension: Code(s): I10 - Essential (primary) hypertension Plan: Continue current medication (3) Vitamin D deficiency: Code(s): E55.9 - Vitamin D deficiency, unspecified Plan: Continue vitamin-D supplement (4) GERD (gastroesophageal reflux disease): Code(s): K21.9 - Gastro-esophageal reflux disease without esophagitis Plan: CONTINUE PPI DIET and anti GERD diet Orders: Orders Lipid Panel 6 Months E78.5 - Hyperlipidemia, unspecified, I10 - Essential (primary) hypertension Comprehensive Harrell. Panel Fast 6 Months E78.5 - Hyperlipidemia, unspecified, I10 - Essential (primary) hypertension Coding Level of Care Code Est Pt Level 4 (78775) Diagnoses Hyperlipidemia E78.5 Hypertension I10 Vitamin D deficiency E55.9 GERD (gastroesophageal reflux disease) K21.9 Additional Codes EVELIO-7 Assessment Billing - EVELIO-7 Assessment Tool: EVELIO-7 Assessment 49599 ([id number])
== END 2023-11-06 11:05 | disposition home or self-care (01) ==
PROVIDERS: PCP Internal Medicine; Visit Provider Internal Medicine
DX: E78.5 Hyperlipidemia, unspecified (principal); I10 Essential (primary) hypertension; E55.9 Vitamin D deficiency, unspecified; K21.9 Gastro-esophageal reflux disease without esophagitis
CPT/HCPCS: 99214

== ENCOUNTER 2024-01-25 09:46 | Outpatient (AMB) | payer MEDICARE, SELFPAY ==
--- NOTE | 2024-01-25 11:01 | MHC.PC.OV ---
Vital Signs 01/25/24 11:02 Height 5 ft 3 in Weight 135 lb BMI 23.9 BP 126/74 Blood Pressure Location Lt brachial Position Sitting Pulse 77 Pulse Source Pulse Oximeter Pulse Oximetry (%) 97 Oxygen Delivery Method Room Air Intake Visit Reasons: Neck pain Intake Note: Pt is here today for a sick visit. Pt c/o neck pain. Pt states that she had MRI done for the cervical spine. Pt states that she had cortisone shots in her neck in the past. Allergies lisinopril Adverse Reaction (Intermediate, Verified 01/25/24 11:03) cough Medication List - Last Reconciled 01/25/24 by Cristin Serrano MD acetaminophen ER (Tylenol Arthritis Pain) 650 mg PO Q12H atorvastatin 40 mg PO DAILY cholecalciferol (vitamin D3) 50 mcg (2 x 25 mcg (1,000 unit)) PO DAILY qyhorlyl-cjp-sksm-FA-lutein (Centrum Silver Women) PO olmesartan 20 mg PO DAILY omeprazole 20 mg PO DAILY Tobacco use date assessed: 01/25/24 Dental Screening Dental Screen Date: 11/06/23 HPI Neck pain HPI Details Pt presents for HTN and hyperlipid, stable on meds. Pt c/o recurrent neck pain and stiffness getting worse over last few months. Pt had cortisone injection in the past with good relief for 6 months she tried physical therapy which was not helpful. Patient denies pain radiating to extremity weakness or numbness in upper extremities. Patient is not interested in taking medications she would like to be referred to pain management [facility] Medical History (Updated 11/06/23 @ 11:04 by Cristin Serrano MD) GERD (gastroesophageal reflux disease) Vitamin D deficiency Hypertension Surgical History S/P cataract extraction Family History Father Hypertension Mother Breast cancer Diabetes Sister Diabetes Social History Household Members Other:: , from [place], 2 sons (one from COVID), Housing: House Patient Tobacco Use Status: Never used Tobacco e-Cigarette/Vaping Use: Never Used Current occupational status: retired Cognitive needs: No Hearing needs: No Vision needs: Yes Questionnaire Thrive Questionnaire Date Thrive assessed: 11/06/23 EVELIO-7 AMB Questionnaire EVELIO-7 Date EVELIO - 7 assessed: 11/06/23 Source: Developed by Drs. Luis Fernandes, Michaela Quiles, Adrián Gonzales and colleagues, with an educational gaudencio from [employer]. Review of Systems Const All systems reviewed & are unremarkable except as noted in HPI and below ENT Reports no additional complaints Card Reports no additional complaints Resp Reports no additional complaints GI Reports no additional complaints Physical exam (Primary Care) Vital Signs: Last Vital Signs Pulse 77 01/25/24 11:02 BP 126/74 01/25/24 11:02 Pulse Ox 97 01/25/24 11:02 Oxygen Delivery Method Room Air 01/25/24 11:02 BMI result Body Mass Index 23.9 Tobacco/Smoking Status: Tobacco use Status Tobacco use date assessed 01/25/24 01/25/24 11:06 Patient Tobacco Use Status Never used Tobacco 01/25/24 11:06 e-Cigarette/Vaping Use Never Used 01/25/24 11:02 Thrive Assessment: Date of Thrive Assessment Date Thrive assessed 11/06/23 01/25/24 11:02 Const General: no acute distress HENMT Head: Yes normal to inspection Neck Other: Decreased range of motion paraspinal tenderness in lower cervical region right more than left, Resp Auscultation: clear to auscultation bilaterally Cardio Rhythm: regular rhythm Heart sounds: S1 normal heart sound present and S2 normal heart sound present GI Inspection: Yes normal to inspection Palpation (GI): Soft to palpation Neuro Cranial nerves: Yes CN's II-XII intact bilaterally Motor exam (neuro): 5/5 motor strength present throughout and Pronator motor function not present Assessment and Plan Assessment & Plan (1) Cervical radiculopathy due to degenerative joint disease of spine: Comment: Follows up with a pain management Code(s): M47.22 - Other spondylosis with radiculopathy, cervical region Plan: Referred to pain management for cortisone injection (2) Hyperlipidemia: Code(s): E78.5 - Hyperlipidemia, unspecified Plan: Continue atorvastatin (3) Hypertension: Code(s): I10 - Essential (primary) hypertension Plan: Continue current medications Orders: Referrals Pain Management Referral M47.22 - Other spondylosis with radiculopathy, cervical region Coding Level of Care Code Est Pt Level 4 (73356) Diagnoses Cervical radiculopathy due to degenerative joint disease of spine M47.22 Hyperlipidemia E78.5 Hypertension I10
[2024-01-25 11:02] VITALS: BP 126/74; PULSE 77; O2SAT 97; BMI 23.9
== END 2024-01-25 15:22 | disposition home or self-care (01) ==
PROVIDERS: PCP Internal Medicine; Visit Provider Internal Medicine
DX: M47.22 Other spondylosis with radiculopathy, cervical region (principal); E78.5 Hyperlipidemia, unspecified; I10 Essential (primary) hypertension
CPT/HCPCS: 99214

== ENCOUNTER 2024-02-09 08:09 | Outpatient (REF) | payer MEDICARE, SELFPAY ==
--- NOTE | ~2024-02-09 | XR_ITS ---
EXAM: X-RAY CERVICAL SPINE X-RAY LUMBAR SPINE INDICATION: Cervical disc degeneration, spondylosis without myelopathy or radiculopathy cervical region. COMPARISON: None. TECHNIQUE: 4 views of the cervical spine. 3 views of the lumbar spine. FINDINGS: Cervical spine: Straightening of the normal cervical lordosis. Degenerative changes between the anterior arch of C1 and the odontoid. 3.5 mm anterolisthesis of C4 on C5. Minimal retrolisthesis of C5 on C6. Marked degenerative changes with large anterior osteophytes and loss of disc space height at C5-C6. Moderate degenerative changes with anterior hypertrophic change and loss of disc space height at C6-C7. Lumbar spine: Dextroscoliosis of the lumbar spine. Advanced degenerative changes in the imaged lower thoracic spine. The bones are diffusely demineralized. Degenerative changes on limited images of the bilateral sacroiliac joints and hips. Facet arthritis in the [id number] lumbar spine. Advanced multilevel lumbar spondylosis with multilevel loss of disc space height most marked at L4-L5. Grade 1 retrolisthesis of L3 on L4. XR/XR cervical spine 3V IMPRESSION: 1. Marked degenerative changes at C5-C6. 2. Advanced multilevel lumbar spondylosis most marked at L4-L5.
--- NOTE | ~2024-02-09 | XR_ITS ---
EXAM: X-RAY CERVICAL SPINE X-RAY LUMBAR SPINE INDICATION: Cervical disc degeneration, spondylosis without myelopathy or radiculopathy cervical region. COMPARISON: None. TECHNIQUE: 4 views of the cervical spine. 3 views of the lumbar spine. FINDINGS: Cervical spine: Straightening of the normal cervical lordosis. Degenerative changes between the anterior arch of C1 and the odontoid. 3.5 mm anterolisthesis of C4 on C5. Minimal retrolisthesis of C5 on C6. Marked degenerative changes with large anterior osteophytes and loss of disc space height at C5-C6. Moderate degenerative changes with anterior hypertrophic change and loss of disc space height at C6-C7. Lumbar spine: Dextroscoliosis of the lumbar spine. Advanced degenerative changes in the imaged lower thoracic spine. The bones are diffusely demineralized. Degenerative changes on limited images of the bilateral sacroiliac joints and hips. Facet arthritis in the [id number] lumbar spine. Advanced multilevel lumbar spondylosis with multilevel loss of disc space height most marked at L4-L5. Grade 1 retrolisthesis of L3 on L4. XR/XR lumbar spine 4V min IMPRESSION: 1. Marked degenerative changes at C5-C6. 2. Advanced multilevel lumbar spondylosis most marked at L4-L5.
== END 2024-02-09 08:10 | disposition home or self-care (01) ==
LOC: HO.XRAY 08:09
PROVIDERS: PCP Internal Medicine; Referring Provider Internal Medicine; Visit Provider Nurse Practitioner Family
DX: M47.812 Spondylosis without myelopathy or radiculopathy, cervical region (principal); M50.30 Other cervical disc degeneration, unspecified cervical region; M62.838 Other muscle spasm; M47.817 Spondylosis without myelopathy or radiculopathy, lumbosacral region
CPT/HCPCS: 72040; 72110; 99202

== ENCOUNTER 2024-02-09 08:09 | Outpatient (AMB) | payer MEDICARE, SELFPAY ==
--- NOTE | 2024-02-09 08:25 | MHC.OFFVIS ---
Vital Signs 02/09/24 08:27 Height 5 ft 3 in Weight 134 lb BMI 23.7 BP 149/73 H Blood Pressure Location Rt brachial Position Sitting Pulse 74 Pulse Source Pulse Oximeter Pulse Oximetry (%) 99 Oxygen Delivery Method Room Air Intake Visit Reasons: Other spondylosis w/radiculopathy, cervical region Intake Note: Pain today 03/27 Epic Beacon Analyst Required: No Accompanied by: Self / Same As Patient Allergies lisinopril Adverse Reaction (Intermediate, Verified 02/09/24 08:28) cough Medication List - Last Reconciled 02/09/24 by DEANNA Mcgrath acetaminophen ER (Tylenol Arthritis Pain) 650 mg PO Q12H atorvastatin 40 mg PO DAILY cholecalciferol (vitamin D3) 50 mcg (2 x 25 mcg (1,000 unit)) PO DAILY khwlujdl-tyv-trci-FA-lutein (Centrum Silver Women) PO olmesartan 20 mg PO DAILY omeprazole 20 mg PO DAILY HPI HPI Other spondylosis w/radiculopathy, cervical region: Details: Patient is a very pleasant 78-year-old female with history of osteopenia, arthritis, cervical and lumbar spondylosis, presents today for initial evaluation of recurrent neck pain with limited range of motion, stiffness and spasms. Denies any recent trauma, injury, or falls. Patient reports good pain relief with cortisone injections by Dr. Casillas in the past which provided her 6 months pain relief. Patient also reports seeing Dr. Hollins in the past for arthritic hand pain. She also reports completing physical therapy which was not very beneficial at that time. She remains active in his daily activities despite the pain in her neck and lower back. She has not tried any medications and interested to pursue interventional treatments and PT at this time. Pain affects her daily activities and functioning and sleep. Pain is constant and most severe during the day and evenings which she rates at 7-9/10 and least severe pain at 6/10. Denies any radicular symptoms to her upper extremities, bladder or bowel dysfunction or saddle anesthesia. Reports intermittent numbness and tingling sensations in her lower extremities without weakness. Oswestry neck disability index score=17 (moderate disability). Location: Lower neck and back Duration: Chronic pain for many years, worsening over past 4-5 months Characteristics of symptom or complaint: Aching, throbbing, stabbing, numbness, tingling Aggravating or associated factors: Any movements, range of motions Relieving factors: Rest, stretching exercises, heat Treatment: PT, injections PFSH Medical History (Updated 02/09/24 @ 08:52 by DEANNA Mcgrath) GERD (gastroesophageal reflux disease) Vitamin D deficiency Hypertension Surgical History S/P cataract extraction Family History Father Hypertension Mother Breast cancer Diabetes Sister Diabetes Social History Household Members Other:: , from [place], 2 sons (one from COVID), Housing: House Patient Tobacco Use Status: Never used Tobacco e-Cigarette/Vaping Use: Never Used Current occupational status: retired Cognitive needs: No Hearing needs: No Vision needs: Yes Review of Systems Const All systems reviewed & are unremarkable except as noted in HPI and below Physical Exam Vital Signs: Last Vital Signs Pulse 74 02/09/24 08:27 BP 149/73 H 02/09/24 08:27 Pulse Ox 99 02/09/24 08:27 Oxygen Delivery Method Room Air 02/09/24 08:27 BMI result Body Mass Index 23.7 General: Appears afebrile. No acute distress. Alert and oriented. Mood and affect appropriate. Follows and participates in conversation appropriately. Respiratory effort is unlabored. No cough. Able to transition from sit to stand unassisted. Ambulates with bilaterally normal heel strike and toe off. Neck Other: Patient with decreased cervical ROM in all planes/especially with lateral rotations and bending. Reports increased pain with cervical extension than flexion. Spurling compression test negative. Elvey's tension test negative bilaterally. Lhermitte's test was negative. DTR intact, +2 and symmetrical. No clonus. Patient demonstrated 5/5 motor strength of bilateral upper extremities. 2 + radial pulses. Mild tightness bilateral upper trapezius and rhomboid muscles. No paravertebral tenderness over facet joint on affected side Neck: Yes no lymphadenopathy, Yes trachea midline, Yes supple, Yes anterior neck swelling, Yes no JVD, No prominent supraclavicular fat pad and No prominent dorsocervical fat pad General: Yes no CVA tenderness Back/Spine/Pelvis Back: no CVA tenderness Cervical Spine: cervical muscular tenderness, pain with cervical ROM, No Cervical spine scars present, cervical spasm (mild) and No Cervical spine tenderness Thoracic/Lumbar Spine: thoracic and lumbar spine normal to inspection, No Thoracic/lumbar spine scar(s), Lasegue's sign negative, straight leg raise negative bilaterally, pain with thoraco-lumbar ROM, No thoracic spinal tenderness and lumbar spinal tenderness at L4 and at L5 Pelvis: no buttock tenderness Sacroiliac joints: bilaterally nontender Extrem General: Yes capillary refill normal, Yes no clubbing, cyanosis or edema and Yes no calf tenderness Results Reviewed Results Reviewed: No imaging reports are available for review. Assessment & Plan Assessment & Plan (1) Cervical spondylosis: Code(s): M47.812 - Spondylosis without myelopathy or radiculopathy, cervical region Category: Medical (2) Degenerative disc disease, cervical: Code(s): M50.30 - Other cervical disc degeneration, unspecified cervical region Category: Medical (3) Muscle spasm: Code(s): M62.838 - Other muscle spasm Category: Medical (4) Lumbosacral spondylosis: Code(s): M47.817 - Spondylosis without myelopathy or radiculopathy, lumbosacral region Category: Medical (5) Cervical spondylosis: Code(s): M47.812 - Spondylosis without myelopathy or radiculopathy, cervical region Category: Medical (6) Degenerative disc disease, cervical: Code(s): M50.30 - Other cervical disc degeneration, unspecified cervical region Category: Medical Plan Lumbar and cervical spine imaging to assess degree of degenerative changes, any subluxation, listhesis, compression fractures or pars defects. Discussed interventional treatments for both neck and low back pain. Tentatively we will plan for bilateral diagnostic C4-C5 C6 medial branch blocks with local and fluoroscopy. Expectations, risks and benefits were reviewed. Informational pamphlets provided today patient. If she has significant relief from the diagnostic blocks for her axial cervical pain, will consider either therapeutic injections, Sprint PNS trial or RFA depending on her preference. Continue home exercise program in daily physical activity, good posture, adequate hydration, avoid sleeping on the stomach as this can twists your neck out of alignment with your spine and cause neck muscle spasms. Patient prefers to avoid medication for neck or lower back pain. She is aware she can try [id number] Tylenol, topical applications (Biofreeze, Icy Hot, topical diclofenac gel, Salonpas or lidocaine patches) for neck or back pain, and magnesium glycinate for neck spasms. Patient avoids NSAIDs due to GERD. All questions and concerns have been answered and patient agreed with the treatment plan. Follow-up for x-rays results and sooner as needed. Orders: Orders XR cervical spine 3V 02/09/24 M47.812 - Spondylosis without myelopathy or radiculopathy, cervical region, M50.30 - Other cervical disc degeneration, unspecified cervical region PT Evaluation and Treatment 02/09/24 M47.812 - Spondylosis without myelopathy or radiculopathy, cervical region, M47.817 - Spondylosis without myelopathy or radiculopathy, lumbosacral region, M50.30 - Other cervical disc degeneration, unspecified cervical region, M62.838 - Other muscle spasm XR lumbar spine 4V min 02/09/24 M47.812 - Spondylosis without myelopathy or radiculopathy, cervical region, M47.817 - Spondylosis without myelopathy or radiculopathy, lumbosacral region, M50.30 - Other cervical disc degeneration, unspecified cervical region, M62.838 - Other muscle spasm Coding Level of Care Code New Pt Level 4 (70550) Diagnoses Cervical spondylosis M47.812 Degenerative disc disease, cervical M50.30 Muscle spasm M62.838 Lumbosacral spondylosis M47.817
[2024-02-09 08:27] VITALS: BP 149/73; PULSE 74; O2SAT 99; BMI 23.7
== END 2024-02-09 09:11 | disposition home or self-care (01) ==
PROVIDERS: PCP Internal Medicine; Referring Provider Internal Medicine; Visit Provider Nurse Practitioner Family
DX: M47.812 Spondylosis without myelopathy or radiculopathy, cervical region (principal); M50.30 Other cervical disc degeneration, unspecified cervical region; M62.838 Other muscle spasm; M47.817 Spondylosis without myelopathy or radiculopathy, lumbosacral region
CPT/HCPCS: 99204

== ENCOUNTER 2024-04-16 07:09 | Outpatient (REF) | payer MEDICARE, SELFPAY ==
--- NOTE | ~2024-04-16 | FL_ITS ---
EXAMINATION: XR FLUOROSCOPY WITH IMAGES CLINICAL INFORMATION: Spondylosis without myelopathy or radiculopathy, cervical region. COMPARISON: X-rays cervical 02/09/2024. TECHNIQUE: Fluoroscopy provided to: Dr. Manzanares Fluoroscopy time: 0.5 minutes DAP: 0.216 mGycm2 Images: 6 FINDINGS: Images of the dorsal cervical spine in PA projection demonstrated needle placement and contrast injection in the nerve root sleeves of what appears to be C3-C5 bilaterally. Refer to full report for detail. FL/FL guidance in treatment room IMPRESSION: Fluoroscopic guidance. Please refer to the full operative report for details. Electronically signed by: Homero Pérez MD 06/13/2024 08:20 AM EDT
== END 2024-04-16 07:10 | disposition home or self-care (01) ==
LOC: CF 07:09
PROVIDERS: Visit Provider Anesthesiology
DX: M47.812 Spondylosis without myelopathy or radiculopathy, cervical region (principal); M50.30 Other cervical disc degeneration, unspecified cervical region; M62.838 Other muscle spasm; M47.817 Spondylosis without myelopathy or radiculopathy, lumbosacral region
CPT/HCPCS: 64490; 64491; J2795; Q9967

== ENCOUNTER 2024-04-16 09:04 | Outpatient (AMB) | payer MEDICARE, SELFPAY ==
[2024-04-16 09:18] VITALS: BP 127/73; PULSE 60; RESP 17; O2SAT 98
--- NOTE | 2024-04-16 09:18 | A.OFFVIS_ITS ---
Vital Signs 04/16/24 09:18 04/16/24 10:41 BP 127/73 140/69 H Blood Pressure Location Rt brachial Rt brachial Position Sitting Sitting Respiration 17 16 Pulse 60 67 Pulse Source Pulse Oximeter Pulse Oximeter Pulse Oximetry (%) 98 97 Oxygen Delivery Method Room Air Room Air Comment Pre-op Intake Visit Reasons: BILATERAL DIAGNOSTIC C4, C5, C6 MBB Allergies lisinopril Adverse Reaction (Intermediate, Verified 02/09/24 08:28) cough PFSH Medical History (Updated 02/26/24 @ 15:25 by DEANNA Mcgrath) GERD (gastroesophageal reflux disease) Vitamin D deficiency Hypertension Surgical History S/P cataract extraction Family History Father Hypertension Mother Breast cancer Diabetes Sister Diabetes Social History Household Members Other:: , from [facility], 2 sons (one from COVID), Housing: House Patient Tobacco Use Status: Never used Tobacco e-Cigarette/Vaping Use: Never Used Current occupational status: retired Cognitive needs: No Hearing needs: No Vision needs: Yes Physical Exam Vital Signs: Last Vital Signs Pulse 67 04/16/24 10:41 Resp 16 04/16/24 10:41 BP 140/69 H 04/16/24 10:41 Pulse Ox 97 04/16/24 10:41 Oxygen Delivery Method Room Air 04/16/24 10:41 Assessment & Plan Assessment & Plan (1) Cervical spondylosis: Code(s): M47.812 - Spondylosis without myelopathy or radiculopathy, cervical region Category: Medical Plan: BilateraC4-C4- C6 therapeutic medial branch block. ?Informed consent was explained to the patient. All questions were explained and answered.? The patient was taken inside the operating room where she was positioned prone on the operating table. Time-out was performed delineating correct site, side, the nature of the procedure, patient's allergy, preoperative antibiotic if needed.? All operating room staff was participating in OR time-out procedure. The back of the neck and upper back were prepped with ChloraPrep and draped with sterile towels.? Sterilely draped C-arm was brought over the operating field and sq picture of? C4-C5-C6 vertebrae were delineated on the screen.? Points of interest were delineated as lateral masses bilaterally of the vertebrae as above. The waste of each lateral mass was chosen as the target of the tip of the needles on AP view and lateral view was used as a safety view for the tips of the needles position.?? The projections of the point of interest to the skin were injected with the small amount of local anesthetic lidocaine 2% 1-1.5 cc.? After that 22 gauge 3and 1/2 inch? spinal needles were driven to the point of interest in tunnel vision fashion. After needles gently contacted the bone at the point of interests the needle was injected with small amount of the contrast. The injections did not demonstrate intravascular or intrathecal spread.. After that ropivacaine 0.5%-1cc. was injected into each location of the needles. (Upon completion of the injections the needles were removed and sterile dressings were applied, the patient was a taken? outside of the operating room to recovery room where she recovered uneventfully. (2) Degenerative disc disease, cervical: Code(s): M50.30 - Other cervical disc degeneration, unspecified cervical region Category: Medical (3) Muscle spasm: Code(s): M62.838 - Other muscle spasm Category: Medical (4) Lumbosacral spondylosis: Code(s): M47.817 - Spondylosis without myelopathy or radiculopathy, lumbosacral region Category: Medical (5) Cervical spondylosis: Code(s): M47.812 - Spondylosis without myelopathy or radiculopathy, cervical region Category: Medical (6) Degenerative disc disease, cervical: Code(s): M50.30 - Other cervical disc degeneration, unspecified cervical region Category: Medical Plan Lumbar and cervical spine imaging to assess degree of degenerative changes, any subluxation, listhesis, compression fractures or pars defects. Discussed interventional treatments for both neck and low back pain. Tentatively we will plan for bilateral diagnostic C4-C5 C6 medial branch blocks with local and fluoroscopy. Expectations, risks and benefits were reviewed. Informational pamphlets provided today patient. If she has significant relief from the diagnostic blocks for her axial cervical pain, will consider either therapeutic injections, Sprint PNS trial or RFA depending on her preference. Continue home exercise program in daily physical activity, good posture, adequate hydration, avoid sleeping on the stomach as this can twists your neck out of alignment with your spine and cause neck muscle spasms. Patient prefers to avoid medication for neck or lower back pain. She is aware she can try [id number] Tylenol, topical applications (Biofreeze, Icy Hot, topical diclofenac gel, Salonpas or lidocaine patches) for neck or back pain, and magnesium glycinate for neck spasms. Patient avoids NSAIDs due to GERD. All questions and concerns have been answered and patient agreed with the treatment plan. Follow-up for x-rays results and sooner as needed. Orders: Orders FL guidance in treatment room Today M47.812 - Spondylosis without myelopathy or radiculopathy, cervical region Coding Level of Care Code Procedure Only Diagnoses Cervical spondylosis M47.812 Degenerative disc disease, cervical M50.30 Muscle spasm M62.838 Lumbosacral spondylosis M47.817
[2024-04-16 10:41] VITALS: BP 140/69; PULSE 67; RESP 16; O2SAT 97
== END 2024-04-16 10:42 | disposition home or self-care (01) ==
LOC: HO.PMCPRC 09:04
PROVIDERS: PCP Internal Medicine; Visit Provider Anesthesiology
DX: M47.812 Spondylosis without myelopathy or radiculopathy, cervical region (principal); M50.30 Other cervical disc degeneration, unspecified cervical region; M62.838 Other muscle spasm; M47.817 Spondylosis without myelopathy or radiculopathy, lumbosacral region
CPT/HCPCS: 64490; 64491

== ENCOUNTER 2024-04-22 12:56 | Outpatient (AMB) | payer MEDICARE, SELFPAY ==
--- NOTE | 2024-04-22 13:10 | A.OFFVIS_ITS ---
Vital Signs 04/22/24 13:15 Height 5 ft 3 in Weight 131 lb BMI 23.2 BP 132/61 Blood Pressure Location Lt brachial Position Sitting Pulse 69 Pulse Source Pulse Oximeter Pulse Oximetry (%) 100 Oxygen Delivery Method Room Air Intake Visit Reasons: BILATERAL DIAGNOSTIC C4, C5, C6 MBB Intake Note: Pain today 5/10 Awake Overnight Counselor Required: No Accompanied by: Spouse Allergies lisinopril Adverse Reaction (Intermediate, Verified 04/22/24 13:16) cough HPI Comments Details: Patient presents today to assess response to Bilateral diagnostic C4, C5, C6 MBB on 04/16/[address] Manzanares. Patient reports no pain relief for the first few hours after procedure due to significant pain with injections. However, she reports she was able to sleep for 3 days after injections without significant pain or discomfort. She reports 50% pain relief for 2nd and 3rd day after injections. Patient continues to endorse significant neck pain with any movement and restricted movement on the left. She is currently in physical therapy and regularly performs home exercise program with partial improvement. She rates her pain today at 5/10. Reports bilateral hand pain with daily activities. Denies any recent cough, cold, infection, fever, any significant changes in her medical history, medications or recent hospitalizations. Past Procedures: 04/16/24: Bilateral diagnostic C4, C5, C6 MBB-50% pain relief for 3 days PRIOR: Patient is a very pleasant 78-year-old female with history of osteopenia, arthritis, cervical and lumbar spondylosis, presents today for initial evaluation of recurrent neck pain with limited range of motion, stiffness and spasms. Denies any recent trauma, injury, or falls. Patient reports good pain relief with cortisone injections by Dr. Casillas in the past which provided her 6 months pain relief. Patient also reports seeing Dr. Hollins in the past for arthritic hand pain. She also reports completing physical therapy which was not very beneficial at that time. She remains active in his daily activities despite the pain in her neck and lower back. She has not tried any medications and interested to pursue interventional treatments and PT at this time. Pain affects her daily activities and functioning and sleep. Pain is constant and most severe during the day and evenings which she rates at 7-9/10 and least severe pain at 6/10. Denies any radicular symptoms to her upper extremities, bladder or bowel dysfunction or saddle anesthesia. Reports intermittent numbness and tingling sensations in her lower extremities without weakness. Oswestry neck disability index score=17 (moderate disability) Location: Lower neck and back Duration: Chronic pain for many years, worsening over past 4-5 months Characteristics of symptom or complaint: Aching, throbbing, stabbing, numbness, tingling Aggravating or associated factors: Any movements, range of motions Relieving factors: Rest, stretching exercises, heat Treatment: PT, injections PFSH Medical History GERD (gastroesophageal reflux disease) Vitamin D deficiency Hypertension Surgical History S/P cataract extraction Family History Father Hypertension Mother Breast cancer Diabetes Sister Diabetes Social History Household Members Other:: , from [facility], 2 sons (one from COVID), Housing: House Patient Tobacco Use Status: Never used Tobacco e-Cigarette/Vaping Use: Never Used Current occupational status: retired Cognitive needs: No Hearing needs: No Vision needs: Yes Review of Systems Const All systems reviewed & are unremarkable except as noted in HPI and below Physical Exam Vital Signs: Last Vital Signs Pulse 69 04/22/24 13:15 BP 132/61 04/22/24 13:15 Pulse Ox 100 04/22/24 13:15 Oxygen Delivery Method Room Air 04/22/24 13:15 BMI result Body Mass Index 23.2 General: Appears afebrile. Alert and oriented. Mood and affect appropriate. Follows and participates in conversation appropriately. Respiratory effort is unlabored. No cough. Able to transition from sit to stand unassisted. Ambulates with bilaterally normal heel strike and toe off. Neck Other: Patient with decreased cervical ROM in all planes/especially with left lateral rotations and bending. Reports increased pain with cervical extension and flexion. Spurling compression test negative. Elvey's tension test positive bilaterally with radiation of pain to both hands bilaterally. Lhermitte's test was negative. DTR intact, +2 and symmetrical. No clonus. Patient demonstrated 5/5 motor strength of bilateral upper extremities. 2 + radial pulses. Moderate tightness bilateral upper trapezius and rhomboid muscles, left>right. No paravertebral tenderness over facet joints bilaterally. Neck: Yes no lymphadenopathy, Yes trachea midline, Yes supple, No anterior neck swelling, Yes torticollis (mild on the left), Yes no JVD, No prominent supraclavicular fat pad and No prominent dorsocervical fat pad Back/Spine/Pelvis Cervical Spine: cervical muscular tenderness, pain with cervical ROM, No Cervical spine scars present, cervical spasm (mild), No Cervical spine tenderness and No step off deformity Thoracic/Lumbar Spine: thoracic and lumbar spine normal to inspection, No Thoracic/lumbar spine scar(s), Lasegue's sign negative, straight leg raise negative bilaterally, pain with thoraco-lumbar ROM, No thoracic spinal tenderness and lumbar spinal tenderness at L4 and at L5 Results Reviewed Results Reviewed: X-RAY CERVICAL SPINE X-RAY LUMBAR SPINE 02/09/24 INDICATION: Cervical disc degeneration, spondylosis without myelopathy or radiculopathy cervical region. FINDINGS: Cervical spine: Straightening of the normal cervical lordosis. Degenerative changes between the anterior arch of C1 and the odontoid. 3.5 mm anterolisthesis of C4 on C5. Minimal retrolisthesis of C5 on C6. Marked degenerative changes with large anterior osteophytes and loss of disc space height at C5-C6. Moderate degenerative changes with anterior hypertrophic change and loss of disc space height at C6-C7. Lumbar spine: Dextroscoliosis of the lumbar spine. Advanced degenerative changes in the imaged lower thoracic spine. The bones are diffusely demineralized. Degenerative changes on limited images of the bilateral sacroiliac joints and hips. Facet arthritis in the [id number] lumbar spine. Advanced multilevel lumbar spondylosis with multilevel loss of disc space height most marked at L4-L5. Grade 1 retrolisthesis of L3 on L4. IMPRESSION: 1. Marked degenerative changes at C5-C6. 2. Advanced multilevel lumbar spondylosis most marked at L4-L5. Assessment & Plan Assessment & Plan (1) Cervical spondylosis: Code(s): M47.812 - Spondylosis without myelopathy or radiculopathy, cervical region Category: Medical (2) Degenerative disc disease, cervical: Code(s): M50.30 - Other cervical disc degeneration, unspecified cervical region Category: Medical (3) Muscle spasm: Code(s): M62.838 - Other muscle spasm Category: Medical (4) Cervicalgia: Code(s): M54.2 - Cervicalgia Category: Medical (5) Cervical radiculopathy due to degenerative joint disease of spine: Comment: Follows up with a pain management Code(s): M47.22 - Other spondylosis with radiculopathy, cervical region Category: Medical Plan Patient is status post recent bilateral diagnostic cervical MBB with partial pain relief and improvement in her sleep for 3 days but not functioning with ADLs. Cervical spine xray results reviewed with patient and her . Findings notable for 3.5 mm anterolisthesis of C4 on C5 and minimal retrolisthesis of C5 on C6. Marked degenerative changes with large anterior osteophytes and loss of disc space height at C5-C6. We will proceed with cervical spine MRI to further evaluate cervical DDD with intermittent radicular symptoms. Script provided for tizanidine. Side effects and precautions were discussed with patient. All questions and concerns have been answered and patient agreed with the treatment plan. Follow-up for MRI results and sooner as needed. Orders: Orders MR cervical spine wo con Today M43.12 - Spondylolisthesis, cervical region, M47.22 - Other spondylosis with radiculopathy, cervical region, M47.812 - Spondylosis without myelopathy or radiculopathy, cervical region, M50.30 - Other cervical disc degeneration, unspecified cervical region Medications: New tizanidine 4 mg PO BID 30 days PRN 60 tabs 0RF muscle spasticity M47.812 - Spondylosis without myelopathy or radiculopathy, cervical region, M50.30 - Other cervical disc degeneration, unspecified cervical region, M62.838 - Other muscle spasm Coding Level of Care Code Est Pt Level 4 (36662) Diagnoses Cervical spondylosis M47.812 Degenerative disc disease, cervical M50.30 Muscle spasm M62.838 Cervicalgia M54.2 Cervical radiculopathy due to degenerative joint disease of spine M47.22
[2024-04-22 13:15] VITALS: BP 132/61; PULSE 69; O2SAT 100; BMI 23.2
== END 2024-04-22 13:45 | disposition home or self-care (01) ==
PROVIDERS: PCP Internal Medicine; Visit Provider Nurse Practitioner Family
DX: M47.812 Spondylosis without myelopathy or radiculopathy, cervical region (principal); M62.838 Other muscle spasm; M54.2 Cervicalgia; M47.22 Other spondylosis with radiculopathy, cervical region
CPT/HCPCS: 99214

== ENCOUNTER → 2024-04-22 12:56 | Outpatient (BNVA) | payer MEDICARE, SELFPAY | PROVIDERS: PCP Internal Medicine; Visit Provider Nurse Practitioner Family | DX: M47.22 Other spondylosis with radiculopathy, cervical region (principal); M50.30 Other cervical disc degeneration, unspecified cervical region; M62.838 Other muscle spasm; M43.12 Spondylolisthesis, cervical region | CPT/HCPCS: 99212 ==

== ENCOUNTER 2024-05-03 07:48 | Outpatient (REF) | payer MEDICARE, SELFPAY ==
[2024-05-03 10:43] LABS: Alanine Aminotransferase 19 U/L (0-31); Albumin Level 4.3 g/dL (3.5-5.0); Alkaline Phosphatase 63 U/L (39-117); Anion Gap 10 (12-20); Aspartate Amino Transferase 24 U/L (5-31); Bilirubin Total 0.7 mg/dL (0.0-1.0); Blood Urea Nitrogen 16 mg/dL (9-16); Calcium 9.5 mg/dL (8.4-10.2); Carbon Dioxide 28 mmol/L (22-29); Chloride 109 mmol/L (96-108); Cholesterol 178 mg/dL (<200); Estimated Glomerular Filt Rate > 60; Glucose Fasting 97 mg/dL (60-99); HDL Cholesterol 48 mg/dL (>40); LDL Cholesterol Calculated 107 mg/dL (<100); Potassium 4.3 mmol/L (3.3-5.1); Sodium 143 mmol/L (135-145); Total Protein 6.7 g/dL (6.5-8.0); Triglycerides 118 mg/dL (<150)
== END 2024-05-03 07:49 | disposition home or self-care (01) ==
LOC: HO.HMGCLDS 07:48
PROVIDERS: PCP Internal Medicine; Visit Provider Internal Medicine
DX: E78.5 Hyperlipidemia, unspecified (principal); I10 Essential (primary) hypertension
CPT/HCPCS: 36415; 80053; 80061

== ENCOUNTER 2024-05-03 09:00 | Outpatient (RCR) | payer MEDICARE, SELFPAY | END 2024-06-10 15:12 | disposition home or self-care (01) | LOC: HO.PT 09:00 | PROVIDERS: PCP Internal Medicine; Visit Provider Nurse Practitioner Family | DX: M47.817 Spondylosis without myelopathy or radiculopathy, lumbosacral region (principal); M62.838 Other muscle spasm; M50.30 Other cervical disc degeneration, unspecified cervical region | CPT/HCPCS: 97110; 97140; 97161 ==

== ENCOUNTER 2024-05-09 11:07 | Outpatient (AMB) | payer MEDICARE, SELFPAY ==
--- NOTE | 2024-05-09 11:09 | AM.OFFWIN_ITS ---
Intake Vital Signs 05/09/24 11:11 Height 5 ft 3 in Weight 131 lb BMI 23.2 BP 116/60 Blood Pressure Location Rt brachial Position Sitting Pulse 87 Pulse Source Pulse Oximeter Temp 98.6 F Temp Source Oral Pulse Oximetry (%) 98 Oxygen Delivery Method Room Air Intake Visit Reasons: EP- coughing, fever, runny nose, chills Intake Note: pt c/o cough, fever, runny nose and chills. Started Monday. Patient Tobacco Use Status: Never used Tobacco Allergies lisinopril Adverse Reaction (Intermediate, Verified 05/09/24 11:10) cough Do you need a note to return to daycare/school/sports/work: No HPI HPI Comments History of Present Illness Details Patient is a 79-year-old female complaining of cough, sore throat, subjective fevers and chills and head congestion for 4 days. She states her was diagnosed with COVID 3 days ago. She denies any measured fevers or shortness of breath Patient states that if she tests positive, she would like Paxlovid. [facility] Medical History GERD (gastroesophageal reflux disease) Vitamin D deficiency Hypertension Surgical History S/P cataract extraction Family History Father Hypertension Mother Breast cancer Diabetes Sister Diabetes Social History Household Members Other:: , from [facility], 2 sons (one from COVID), Housing: House Patient Tobacco Use Status: Never used Tobacco e-Cigarette/Vaping Use: Never Used Current occupational status: retired Cognitive needs: No Hearing needs: No Vision needs: Yes Review of Systems Const All systems reviewed & are unremarkable except as noted in HPI and below Physical Exam Vital Signs: Last Vital Signs Temp 98.6 F 05/09/24 11:11 Pulse 87 05/09/24 11:11 BP 116/60 05/09/24 11:11 Pulse Ox 98 05/09/24 11:11 Oxygen Delivery Method Room Air 05/09/24 11:11 BMI result Body Mass Index 23.2 Const General: cooperative, healthy appearing, comfortable and no acute distress Orientation/consciousness: patient oriented x3 Limitations: no limitations HEENT Head: Yes normal to inspection Ears: hearing grossly normal bilaterally, external ears normal and TM's normal bilaterally General nose exam: Normal external nose present, Normal nares present and No nasal discharge present Face and sinus: Yes normal facial exam and Yes sinuses nontender Mouth: Normal oral and palatal mucosa present and moist mucous membranes Throat: Yes tonsils normal, Yes uvula midline and Yes posterior oropharynx abnormal (Erythema) Eyes General: appearance normal, both eyes and all related structures Neck Neck: Yes normal visual inspection Resp Effort & Inspection: normal respiratory effort, able to speak in complete sentences, no respiratory distress, not tachypneic, no tripod positioning and no use of accessory muscles Auscultation: clear to auscultation bilaterally Cardio Rate: regular rate Rhythm: regular rhythm Heart sounds: normal S1 and S2 Skin General skin exam: no rashes or lesions noted Neuro General: patient oriented x3 Extrem General: Yes normal to inspection and Yes no clubbing, cyanosis or edema Assessment & Plan Assessment & Plan (1) URI (upper respiratory infection): Code(s): J06.9 - Acute upper respiratory infection, unspecified Qualifiers: URI type: unspecified URI Qualified Code(s): J06.9 - Acute upper respiratory infection, unspecified Plan: Vital signs stable, physical exam unremarkable, patient well-appearing. Tested for flu COVID and RSV, agreed to send Paxlovid if she tests positive Plan See above Orders: Orders SARS-CoV2/FLU/RSV Today J06.9 - Acute upper respiratory infection, unspecified Coding Level of Care Code Est Pt Level 3 (95108) Diagnoses Upper respiratory tract infection, unspecified type J06.9 URI type: unspecified URI
[2024-05-09 11:11] VITALS: BP 116/60; PULSE 87; TEMP 37; O2SAT 98; BMI 23.2
== END 2024-05-09 11:35 | disposition home or self-care (01) ==
PROVIDERS: PCP Internal Medicine; Visit Provider Physician Assistant
DX: J06.9 Acute upper respiratory infection, unspecified (principal)
CPT/HCPCS: 99213

== ENCOUNTER 2024-05-09 11:14 | Outpatient (REF) | payer MEDICARE, SELFPAY ==
[2024-05-09 14:35] LABS: Influenza A PCR NEGATIVE (Negative); Influenza B PCR NEGATIVE (Negative); Resp Syncy Virus RNA Qual PCR NEGATIVE (Negative); SARS COV2 PCR INHOUSE POSITIVE (Negative)
== END 2024-05-09 11:15 | disposition home or self-care (01) ==
LOC: HO.LAB 11:14
PROVIDERS: Visit Provider Physician Assistant
DX: J06.9 Acute upper respiratory infection, unspecified (principal)
CPT/HCPCS: 0241U

== ENCOUNTER 2024-05-21 09:57 | Outpatient (AMB) | payer MEDICARE, SELFPAY ==
--- NOTE | 2024-05-21 10:48 | MHC.OFFWIV ---
Intake Vital Signs 05/21/24 10:50 Height 5 ft 3 in Weight 131 lb BMI 23.2 BP 122/70 Blood Pressure Location Rt brachial Position Sitting Pulse 75 Pulse Source Pulse Oximeter Temp 98.2 F Temp Source Oral Pulse Oximetry (%) 98 Oxygen Delivery Method Room Air Intake Visit Reasons: EP headache, runny nose, dizzy (post Covid) Intake Note: pt c/o headache, runny nose and dizziness. Patient Tobacco Use Status: Never used Tobacco Allergies lisinopril Adverse Reaction (Intermediate, Verified 05/21/24 10:49) cough Do you need a note to return to daycare/school/sports/work: No HPI EP headache, runny nose, dizzy (post Covid) HPI Details This is a 79-year-old female patient who presents to the walk-in clinic today with ongoing symptoms s/p COVID, which was diagnosed here on 05/09. She reports that most of her symptoms have resolved, however she continues to have sinus/facial pressure, headache, and nasal congestion. She has been taking Tylenol with mild relief. She denies any fever, chills, body aches, respiratory or GI symptoms. [facility] Medical History GERD (gastroesophageal reflux disease) Vitamin D deficiency Hypertension Surgical History S/P cataract extraction Family History Father Hypertension Mother Breast cancer Diabetes Sister Diabetes Social History Household Members Other:: , from [facility], 2 sons (one from COVID), Housing: House Patient Tobacco Use Status: Never used Tobacco e-Cigarette/Vaping Use: Never Used Current occupational status: retired Cognitive needs: No Hearing needs: No Vision needs: Yes Review of Systems Const All systems reviewed & are unremarkable except as noted in HPI and below Physical Exam Vital Signs: Last Vital Signs Temp 98.2 F 05/21/24 10:50 Pulse 75 05/21/24 10:50 BP 122/70 05/21/24 10:50 Pulse Ox 98 05/21/24 10:50 Oxygen Delivery Method Room Air 05/21/24 10:50 BMI result Body Mass Index 23.2 Const General: cooperative, healthy appearing and no acute distress Nutritional Appearance: average body habitus HEENT Head: Yes normal to inspection Ears: hearing grossly normal bilaterally and TM's normal bilaterally General nose exam: Normal external nose present and Nasal discharge present mucoid Face and sinus: Yes sinus tenderness (frontal, maxillary) Mouth: moist mucous membranes Throat: Yes posterior oropharynx abnormal (mild erythema) Neck Neck: Yes no lymphadenopathy Resp Effort & Inspection: normal respiratory effort Auscultation: clear to auscultation bilaterally Cardio Rate: regular rate Rhythm: regular rhythm Skin General skin exam: no rashes or lesions noted Extrem General: Yes capillary refill normal and Yes no clubbing, cyanosis or edema Psych Appearance: grossly normal Mental Status: mental status grossly normal Speech and movement: Normal speech and movement present Assessment & Plan Assessment & Plan (1) Acute sinusitis: Code(s): J01.90 - Acute sinusitis, unspecified Qualifiers: Recurrence: non-recurrent Sinusitis location: maxillary Qualified Code(s): J01.00 - Acute maxillary sinusitis, unspecified Plan: Likely secondary bacterial sinusitis s/p covid infection. Will start on course of abx. Reviewed indications, use, possible s/e of medication. Also advised decongestant otc, in addition to increased hydration, healthy food/vitamin intake. If she does not improve with time and these measures, or if symptoms worsen, she can return to the clinic for further evaluation. She verbalizes understanding and agrees to plan. Medications: New azithromycin For 250 mg dose pack: take 500 mg today (day 1), then 250 mg for 4 days (days 2-5) PO 6 tabs 0RF J01.00 - Acute maxillary sinusitis, unspecified Coding Level of Care Code Est Pt Level 4 (68253) Diagnoses Acute non-recurrent maxillary sinusitis J01.00 Recurrence: non-recurrent Sinusitis location: maxillary
[2024-05-21 10:50] VITALS: BP 122/70; PULSE 75; TEMP 36.8; O2SAT 98; BMI 23.2
== END 2024-05-21 11:31 | disposition home or self-care (01) ==
PROVIDERS: PCP Internal Medicine; Visit Provider Nurse Practitioner Family
DX: J01.00 Acute maxillary sinusitis, unspecified (principal)
CPT/HCPCS: 99214

== ENCOUNTER 2024-05-25 09:49 | Outpatient (REF) | payer MEDICARE, SELFPAY ==
--- NOTE | ~2024-05-25 | MR_ITS ---
EXAMINATION: MR CERVICAL SPINE WITHOUT CONTRAST CLINICAL INFORMATION: Spondylolisthesis COMPARISON: Cervical spine radiographs February 09, 2024 TECHNIQUE: MRI of the cervical spine was obtained using routine sequences without contrast. FINDINGS: The craniocervical junction is intact. Nonspecific straightening of the normal cervical lordosis. Grade 1 anterolisthesis at C4-C5 and to a lesser extent at C2-C3. Vertebral body heights are normal without acute compression fracture. Intraosseous hemangioma within the T2 vertebral body. Diffuse disc desiccation with moderate to severe disc height loss at C5-C6 and C6-C7 and mild disc height loss at C4-C5. Ventral disc osteophytes at C5-C6 greater than C6-C7. There are multilevel degenerative changes with level by level detail as follows: C2-C3: Small central disc protrusion and asymmetric hypertrophic right facet arthrosis. No spinal canal stenosis. Mild right without left neural foraminal stenosis. C3-C4: Central disc protrusion with left greater than right uncovertebral joint hypertrophy and asymmetric hypertrophic left and mild right facet arthrosis. No spinal canal stenosis. Severe left without right neural foraminal stenosis. C4-C5: Severe hypertrophic bilateral facet arthrosis with unroofing of the posterior disc and bilateral uncovertebral joint hypertrophy. No spinal canal stenosis. Moderate to severe left and mild right neural foraminal stenosis. C5-C6: Disc osteophyte complex with right paracentral disc osteophyte protrusion, bilateral uncovertebral joint hypertrophy, and bilateral facet arthrosis. Moderate spinal canal stenosis with concave indentation along the right ventral cord and severe bilateral neural foraminal stenosis. C6-C7: Disc osteophyte complex with inferiorly migrated right paracentral disc extrusion, bilateral uncovertebral joint hypertrophy, and bilateral facet arthrosis. Mild right eccentric spinal canal stenosis with flattening along the right ventral cord and severe bilateral neural foraminal stenosis. C7-T1: Left greater than right facet arthrosis. No spinal canal stenosis. Mild bilateral neural foraminal narrowing. No cervical cord signal abnormality. No epidural fluid collection, mass, or hematoma. No significant abnormalities of the paraspinal musculature. The flow voids of the major cervical vessels are maintained. The visualized intracranial structures are normal. No demonstrated abnormalities in the visualized neck. MR/MR cervical spine wo con IMPRESSION: 1. Multilevel cervical spondylosis as described above, worst at C5-C6 where there is moderate spinal canal stenosis with concave indentation along the right ventral cord and severe bilateral neural foraminal stenosis. No cord signal abnormality. 2. At C6-C7, there is mild right eccentric spinal canal stenosis with flattening along the right ventral cord and severe bilateral neural foraminal stenosis. 3. Additional level by level detail as above. Electronically signed by: Becky Escobar MD 05/25/2024 12:38 PM EDT
== END 2024-05-25 09:50 | disposition home or self-care (01) ==
LOC: HO.MRI 09:49
PROVIDERS: PCP Internal Medicine; Visit Provider Nurse Practitioner Family
DX: M43.12 Spondylolisthesis, cervical region (principal); M50.30 Other cervical disc degeneration, unspecified cervical region; M47.812 Spondylosis without myelopathy or radiculopathy, cervical region; M47.22 Other spondylosis with radiculopathy, cervical region
CPT/HCPCS: 72141

== ENCOUNTER 2024-06-06 08:31 | Outpatient (AMB) | payer MEDICARE, SELFPAY ==
--- NOTE | 2024-06-06 08:40 | A.OFFVIS_ITS ---
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 Patient rep orts she completed 12 sessions of PT up to date and this has been beneficial. However, she continues with difficulty turning her head to the right. During sleep, she has to constantly re-adjust her positioning on the right. Reports bilateral radicular symptoms in to her both hands with parasthesias in her left 5th finger and right 4th and 5th fingers with numbness and tingling. Reports intermittent low back pain with radiation into her right lower extremity laterally and lateral-posterior right calf and heel. Patient is interested to undergo Neurosurgical evaluation prior to interventional treatments. She will continue PT and home exercise program. Patient reports recent Walk-in visits for URI, COVID and sinusitis with improvement after taking antibiotics. Denies any current cough, cold, infection, fever, or any other significant changes in her medical history, medications or recent hospitalizations. Reports constipation unrelieved with home and OTC treatments. Past Procedures: 04/16/24: Bilateral diagnostic C4, C5, C6 MBB-50% pain relief for 3 days PRIOR: Patient is a very pleasant 78-year-old female with history of osteopenia, arthritis, cervical and lumbar spondylosis, presents today for initial evaluation of recurrent neck pain with limited range of motion, stiffness and spasms. Denies any recent trauma, injury, or falls. Patient reports good pain relief with cortisone injections by Dr. Casillas in the past which provided her 6 months pain relief. Patient also reports seeing Dr. Hollins in the past for arthritic hand pain. She also reports completing physical therapy which was not very beneficial at that time. She remains active in his daily activities despite the pain in her neck and lower back. She has not tried any medications and interested to pursue interventional treatments and PT at this time. Pain affects her daily activities and functioning and sleep. Pain is constant and most severe during the day and evenings which she rates at 7-9/10 and least severe pain at 6/10. Denies any radicular symptoms to her upper extremities, bladder or bowel dysfunction or saddle anesthesia. Reports intermittent numbness and tingling sensations in her lower extremities without weakness. Oswestry neck disability index score=17 (moderate disability) Location: Lower neck and back Duration: Chronic pain for many years, worsening over past 4-5 months Characteristics of symptom or complaint: Aching, throbbing, stabbing, numbness, tingling Aggravating or associated factors: Any movements, range of motions Relieving factors: Rest, stretching exercises, heat Treatment: PT, injections FOR[facility]LY [facility] Medical History GERD (gastroesophageal reflux disease) Vitamin D deficiency Hypertension Surgical History S/P cataract extraction Family History Father Hypertension Mother Breast cancer Diabetes Sister Diabetes Social History Household Members Other:: , from [facility], 2 sons (one from COVID), Housing: House Patient Tobacco Use Status: Never used Tobacco e-Cigarette/Vaping Use: Never Used Current occupational status: retired Cognitive needs: No Hearing needs: No Vision needs: Yes Review of Systems Const All systems reviewed & are unremarkable except as noted in HPI and below Physical Exam General: Appears afebrile. Alert and oriented. Mood and affect appropriate. Follows and participates in conversation appropriately. Respiratory effort is unlabored. No cough. Able to transition from sit to stand unassisted. Ambulates with bilaterally normal heel strike and toe off. Neck Other: Patient with decreased cervical ROM in all planes/especially with lateral rotations and bending, worse on the right. Reports increased pain with cervical extension and flexion. Spurling compression test equivocal. Elvey's tension test positive bilaterally with radiation of pain to both hands bilaterally. Lhermitte's test was negative. DTR intact, +1 right +2 left. Patient demonstrated 5/5 motor strength of bilateral upper extremities. 2 + radial puls es. Mild-moderate tightness bilateral upper trapezius, scalene and rhomboid muscles. No paravertebral tenderness over facet joints bilaterally. Neck: Yes no lymphadenopathy, Yes trachea midline, Yes supple, No anterior neck swelling, Yes torticollis (mild on the left), Yes no JVD, No prominent supraclavicular fat pad and No prominent dorsocervical fat pad General: Yes no CVA tenderness Back/Spine/Pelvis Back: no CVA tenderness Cervical Spine: cervical muscular tenderness, pain with cervical ROM, No Cervical spine scars present, cervical spasm, No Cervical spine tenderness and No step off deformity Thoracic/Lumbar Spine: thoracic and lumbar spine normal to inspection, No Thoracic/lumbar spine scar(s), pain with thoraco-lumbar ROM, paraspinal muscle tenderness on the right greater than left, thoraco-lumbar ROM limited, No thoracic spinal tenderness and lumbar spinal tenderness at L4 and at L5 Pelvis: buttock tenderness on the right Results Reviewed Results Reviewed: MR CERVICAL SPINE WITHOUT CONTRAST 05/25/24 CLINICAL INFORMATION: Spondylolisthesis COMPARISON: Cervical spine radiographs February 09, 2024 FINDINGS: The craniocervical junction is intact. Nonspecific straightening of the normal cervical lordosis. Grade 1 anterolisthesis at C4-C5 and to a lesser extent at C2-C3. Vertebral body heights are normal without acute compression fracture. Intraosseous hemangioma within the T2 vertebral body. Diffuse disc desiccation with moderate to severe disc height loss at C5-C6 and C6-C7 and mild disc height loss at C4-C5. Ventral disc osteophytes at C5-C6 greater than C6-C7. There are multilevel degenerative changes with level by level detail as follows: C2-C3: Small central disc protrusion and asymmetric hypertrophic right facet arthrosis. No spinal canal stenosis. Mild right without left neural foraminal stenosis. C3-C4: Central disc protrusion with left greater than right uncovertebral joint hypertrophy and asymmetric hypertrophic left and mild right facet arthrosis. No spinal canal stenosis. Severe left without right neural foraminal stenosis. C4-C5: Severe hypertrophic bilateral facet arthrosis with unroofing of the posterior disc and bilateral uncovertebral joint hypertrophy. No spinal canal stenosis. Moderate to severe left and mild right neural foraminal stenosis. C5-C6: Disc osteophyte complex with right paracentral disc osteophyte protrusion, bilateral uncovertebral joint hypertrophy, and bilateral facet arthrosis. Moderate spinal canal stenosis with concave indentation along the right ventral cord and severe bilateral neural foraminal stenosis. C6-C7: Disc osteophyte complex with inferiorly migrated right paracentral disc extrusion, bilateral uncovertebral joint hypertrophy, and bilateral facet arthrosis. Mild right eccentric spinal canal stenosis with flattening along the right ventral cord and severe bilateral neural foraminal stenosis. C7-T1: Left greater than right facet arthrosis. No spinal canal stenosis. Mild bilateral neural foraminal narrowing. No cervical cord signal abnormality. No epidural fluid collection, mass, or hematoma. No significant abnormalities of the paraspinal musculature. The flow voids of the major cervical vessels are maintained. The visualized intracranial structures are normal. No demonstrated abnormalities in the visualized neck. IMPRESSION: 1. Multilevel cervical spondylosis as described above, worst at C5-C6 where there is moderate spinal canal stenosis with concave indentation along the right ventral cord and severe bilateral neural foraminal stenosis. No cord signal abnormality. 2. At C6-C7, there is mild right eccentric spinal canal stenosis with flattening along the right ventral cord and severe bilateral neural foraminal stenosis. 3. Additional level by level detail as above. Assessment & Plan Assessment & Plan (1) Cervical spondylosis: Code(s): M47.812 - Spondylosis without myelopathy or radiculopathy, cervical region Category: Medical (2) Degenerative disc disease, cervical: Code(s): M50.30 - Other cervical disc degeneration, unspecified cervical region Category: Medical (3) Muscle spasm: Code(s): M62.838 - Other muscle spasm Category: Medical (4) Constipation: Code(s): K59.00 - Constipation, unspecified Category: Medical (5) Degenerative disc disease, cervical: Code(s): M50.30 - Other cervical disc degeneration, unspecified cervical region Category: Medical (6) Degenerative cervical spinal stenosis: Code(s): M48.02 - Spinal stenosis, cervical region Category: Medical (7) Spondylolisthesis of cervical region: Code(s): M43.12 - Spondylolisthesis, cervical region Category: Medical Plan Cervical spine MRI results and imaging was reviewed with patient today in greater detail, significant for multilevel degenerative changes with spondylosis and grade 1 spondylolisthesis, central and neural foraminal moderate to severe spinal stenosis. Patient had bilateral diagnostic cervical MBB and 12 sessions of PT with partial pain relief and improvement in her ADLs but continues to have significant pain with ROM and sleep. Patient is interested to proceed with neurosurgical evaluation prior any further interventional treatments. Patient reports drowsiness and nightmares with tizanidine, we will stop that and update her allergy list. Patient will trial magnesium glycinate for muscle spasms. Script provided for stool softener per patient request. Continue physical therapy and home exercise program. All questions and concerns have been answered and patient agreed with the treatment plan. Follow-up after neurosurgical evaluation and sooner as needed. Orders: Referrals Neuro Spine Referral M43.12 - Spondylolisthesis, cervical region, M48.02 - Spinal stenosis, cervical region, M50.30 - Other cervical disc degeneration, unspecified cervical region Medications: New docusate sodium (Dulcolax Stool Softener (docusate)) 100 mg PO BID 30 days 60 caps 0RF K59.00 - Constipation, unspecified magnesium glycinate 200 mg (2 x 100 mg) PO DAILY 30 days 60 tabs 1RF pain M47.812 - Spondylosis without myelopathy or radiculopathy, cervical region, M50.30 - Other cervical disc degeneration, unspecified cervical region, M62.838 - Other muscle spasm Discontinued tizanidine Discontinued Reason: Patient Completed Course 4 mg PO BID 30 days PRN 60 ta bs 0RF muscle spasticity M47.812 - Spondylosis without myelopathy or radiculopathy, cervical region, M50.30 - Other cervical disc degeneration, unspecified cervical region, M62.838 - Other muscle spasm Coding Level of Care Code Est Pt Level 4 (30156) Complex EM visit Add On G2211 Diagnoses Cervical spondylosis M47.812 Degenerative disc disease, cervical M50.30 Muscle spasm M62.838 Constipation K59.00 Degenerative cervical spinal stenosis M48.02 Spondylolisthesis of cervical region M43.12
[2024-06-06 08:44] VITALS: BP 155/75; PULSE 63; O2SAT 99; BMI 23.0
== END 2024-06-06 09:15 | disposition home or self-care (01) ==
PROVIDERS: PCP Internal Medicine; Visit Provider Nurse Practitioner Family
DX: M47.812 Spondylosis without myelopathy or radiculopathy, cervical region (principal); M50.30 Other cervical disc degeneration, unspecified cervical region; M62.838 Other muscle spasm; K59.00 Constipation, unspecified; M48.02 Spinal stenosis, cervical region; M43.12 Spondylolisthesis, cervical region
CPT/HCPCS: 99214; G2211

== ENCOUNTER → 2024-06-06 08:31 | Outpatient (BNVA) | payer MEDICARE, SELFPAY | PROVIDERS: PCP Internal Medicine; Visit Provider Nurse Practitioner Family | DX: M47.812 Spondylosis without myelopathy or radiculopathy, cervical region (principal); M43.12 Spondylolisthesis, cervical region; M48.02 Spinal stenosis, cervical region; M50.30 Other cervical disc degeneration, unspecified cervical region; M62.838 Other muscle spasm; K59.00 Constipation, unspecified | CPT/HCPCS: 99212 ==

== ENCOUNTER 2024-06-10 09:04 | Outpatient (REF) | payer MEDICARE, SELFPAY ==
--- NOTE | ~2024-06-10 | MM_ITS ---
EXAMINATION: MM SCREENING DIGITAL BREAST TOMOSYNTHESIS, BILATERAL CLINICAL INFORMATION: Screening. Asymptomatic. COMPARISON: Mammography: Outside prior images are available from 2020, outside reports are not available at this time. TECHNIQUE: Digital breast mammography with tomosynthesis is performed in both the craniocaudal and mediolateral oblique views along with computer-aided detection (CAD). FINDINGS: The breasts are heterogeneously dense, which may obscure small masses (ACR BI-RADS breast composition Category c). There are no significant masses, abnormal calcifications, or other abnormalities. MM/MM tomosynthesis screening BI IMPRESSION: No mammographic evidence of malignancy. ASSESSMENT: BI-RADS BI-RADS 1 - Negative RECOMMENDATION: Routine annual mammography screening. 1 year F/U This examination should not preclude the clinical evaluation of a suspicious palpable abnormality. This patient's information was entered into a reminder system with a target due date for their next mammogram. Electronically signed by: Juliette Purvis DO 06/20/2024 01:42 PM EDT
== END 2024-06-10 09:05 | disposition home or self-care (01) ==
LOC: HO.MAMMO 09:04
PROVIDERS: PCP Internal Medicine; Visit Provider Internal Medicine
DX: Z12.31 Encounter for screening mammogram for malignant neoplasm of breast (principal)
CPT/HCPCS: 77063; 77067

== ENCOUNTER → 2024-06-10 09:30 | Outpatient (BNV) | payer MEDICARE, SELFPAY | PROVIDERS: PCP Internal Medicine; Visit Provider Internal Medicine | DX: Z12.31 Encounter for screening mammogram for malignant neoplasm of breast (principal) | CPT/HCPCS: 77063; 77067 ==

== ENCOUNTER 2024-06-11 09:20 | Outpatient (AMB) | payer MEDICARE, SELFPAY ==
--- NOTE | 2024-06-11 09:40 | A.OFFVIS_ITS ---
Intake Vital Signs 06/11/24 10:07 Height 5 ft 3 in Weight 133 lb BMI 23.6 BP 122/74 Blood Pressure Location Lt brachial Position Sitting Pulse 80 Pulse Source Pulse Oximeter Pulse Oximetry (%) 97 Oxygen Delivery Method Room Air Intake Visit Reasons: AWV Allergies lisinopril Adverse Reaction (Intermediate, Verified 06/11/24 10:12) cough tizanidine Adverse Reaction (Intermediate, Verified 06/11/24 10:12) Nightmare Medication List - Last Reconciled 06/11/24 by Cristin Serrano MD acetaminophen ER (Tylenol Arthritis Pain) 650 mg PO Q12H atorvastatin 40 mg PO DAILY cholecalciferol (vitamin D3) 50 mcg (2 x 25 mcg (1,000 unit)) PO DAILY cyclosporine 0.05% (Restasis) drps ophthalmic (eye) docusate sodium (Dulcolax Stool Softener (docusate)) 100 mg PO BID 30 days magnesium glycinate 200 mg (2 x 100 mg) PO DAILY 30 days [id number] (Centrum Silver Women) PO olmesartan 20 mg PO DAILY omeprazole 20 mg PO DAILY HPI AWV HPI Details Initiated the conversation about Advanced Directives. Advanced Directives help? patients prepare for current and future decisions about their medical treatment? and place of care. Discussed with patient that it is a process where a patients? current condition and prognosis are reviewed, their wishes for information? regarding their illness are elicited, and likely medical dilemmas are presented? and options discussed. The form can be amended as needed, reviewed yearly and? make changes as needed IPPE/AWV ? year old presents? for her ? Annual? Wellness Visit, initial visit.? Medical / Social History Reviewed? Past Medical History ?Yes? . ? [place]? of Care / Care Team list updated ?Yes . ? Surgical/Hospitalization? History ?Yes . ? Current Medications? (including OTC and supplements) ?Yes . ? Family History ?Yes? . ? Tobacco? Control form ?Yes . ? AUDIT-C (Alcohol use) form? ?Yes . ? Illicit drug use in Social? History ?Yes . ? Current diagnosis of? depression? ?No ? Appropriate PHQ2/PHQ9? completed ?Yes . ? Data entered by ?Medical? Stem Roller Operator and reviewed by provider ? Fall Risk ? Fall? History? Have you had any falls with? injury in the past year? ?No . ? Have you had two or more? falls in the past year? ?No . ? Fall Risk Assessment: ?No? falls in the past year . ? HRA filled out by? the patient, reviewed by Provider and scanned. ? IPPE/AWV ? Balance? [place]? ?Yes . ? Tandem? walk ?Yes . ? Walk and? Turn ?Yes . ? Rise from? sit to stand ?Yes . ?Vision? Corrective? lens ?Yes ? Vision? screen ? Up-to-date, has an appointment [] for vision? screening and glaucoma screening ?Hearing? Whisper? test ?pass .? Initiated the conversation about Advanced Directives. Advanced Directives help? patients prepare for current and future decisions about their medical treatment? and place of care. Discussed with patient that it is a process where a patients? current condition and prognosis are reviewed, their wishes for information? regarding their illness are elicited, and likely medical dilemmas are presented? and options discussed. The form can be amended as needed, reviewed yearly and? make changes as needed Written? Plan?Completed. See Patient? Documents. [facility] Medical History (Updated 06/11/24 @ 11:11 by Cristin Serrano MD) GERD (gastroesophageal reflux disease) Vitamin D deficiency Hypertension Surgical History (Updated 06/11/24 @ 11:13 by Cristin Serrano MD) S/P cataract extraction Family History Father Hypertension Mother Breast cancer Diabetes Sister Diabetes Social History Household Members Other:: , from [place], 2 sons (one from COVID), Housing: House Patient Tobacco Use Status: Never used Tobacco e-Cigarette/Vaping Use: Never Used Current occupational status: retired Cognitive needs: No Hearing needs: No Vision needs: Yes Questionnaire Medicare Wellness Checkup [age] What gender do you identify with?: female During the past 4 weeks, how much have you been bothered by emotional problems such as feeling anxious, depressed, irritable, sad or downhearted, and blue?: not at all During the past 4 weeks, has your physical & emotional health limited your social activities with family, friends, neighbors, or groups?: not at all During the past 4 weeks, how much bodily pain have you generally had?: no pain During the past 4 weeks, was someone available to help you if you needed & wanted help?: no, not at all During the past 4 weeks, what was the hardest physical activity you could do for at least 2 minutes?: light Can you get to places out of walking distance without help? (For eg., can you travel alone on buses, taxis or drive your car?): Yes Can you go shopping for groceries or clothes without someone's help?: Yes Can you prepare your own meals?: Yes Can you do your housework without help?: Yes Because of any health problems, do you need the help of another person with your personal care needs such as eating, bathing, dressing or getting around the house?: No Can you handle your own money without help?: Yes During the past 4 weeks, how would you rate your health in general?: fair During the past 4 weeks how have things been going for you?: good & bad parts about equal Are you having difficulties driving your car?: no Do you always fasten your seat belt when you are in a car?: yes, usually During past 4 weeks, have you been bothered by the following: never: Falling or dizzy when standing up, Sexual problems?, Trouble eating well?, Teeth or denture problems? and Problems using the telephone? and seldom: Tiredness or fatigue? Have you fallen 2 or more times in the past year?: No Are you afraid of falling?: No Are you a smoker?: no During the past 4 weeks, how many drinks of wine, beer, or other alcoholic beverages did you have?: no alcohol at all Do you exercise for about 20 minutes 3 or more times a week?: yes, most of the time Have you been given information to help with the following?: yes: Keeping track of your medications? and no: Hazards in your house that might hurt you? How often do you have trouble taking medicines the way you have been told to take them?: I always take medicine as prescribed How confident are you that you can control & manage most of your health problems?: very confident What is your race?: White Mini Mental State Exam (MMSE) Orientation What is the (year) (season) (date) (day) (month)?: year, season, date, day and month Where are we (state) (county) (town or city) (hospital) (floor)?: state, county, town or city, hospital/clinic and floor Registration Name of 3 unrelated objects clearly and slowly, then ask patient to repeat all 3 of them. (1st repeat determines score. Make sure they can repeat all three): object 1, object 2 and object 3 Attention & Calculation (CHOOSE ONE) Spell WORLD backwards (DLROW): 5 letters Recall Ask patient to repeat the 3 items from question #3.: object 1, object 2 and object 3 Language Show patient a wristwatch & ask what it is. Repeat for pencil.: watch and pencil Ask the patient to repeat the phrase 'No ifs, ands, or buts' after you.: correct Ask the patient to 'take a piece of paper with their right hand' 'fold paper in half' 'place paper on floor': take paper in right hand, fold paper in half and place paper on floor Print the sentence 'CLOSE YOUR EYES' on a piece. If patient actually closes eyes then score.: followed written direction Give patient a blank piece of paper & ask to write a sentence. Score if it contains a noun & verb.: sentence contains subject and verb Score Score: 29 Activity of Daily Living Bathing - sponge bath, tub bath or shower: receives no assistance (gets in/out by self, if usual bathing means Dressing - getting clothes from closets & drawers, including inner/outer garments & fasteners.: gets clothes & gets completely dressed without help Toileting - going to the 'toilet room' for urine/bowel elimination & cleaning self/arranging clothes: goes to toilet room, cleans self, arranges clothes without help Transfer: moves in & out of bed and chair without help (may use support object) Continence: controls urination/bowel movements completely by self Feeding: feeds self without help Total Score: 0 Information obtained from: patient Using telephone: independent Traveling: independent Shopping: independent Preparing meals: independent Housework: independent Taking medicine: independent Managing money: independent PHQ-9 Over the last 2 weeks, how often have you been bothered by any of the following problems? 1. Little interest or pleasure in doing things: not at all 2. Feeling down, depressed, or hopeless: not at all 3. Trouble falling or staying asleep, or sleeping too much: not at all 4. Feeling tired or having little energy: not at all 5. Poor appetite or overeating: not at all 6. Feeling bad about yourself - or that you are a failure or have let yourself or your family down: not at all 7. Trouble concentrating on things, such as reading the newspaper or watching television: not at all 8. Moving or speaking so slowly that other people could have noticed. Or the opposite - being so fidgety or restless that you have been moving around a lot more than usual: not at all 9. Thoughts that you would be better off or of hurting yourself in some way: not at all Total score: 0 Depression Screening Interpretation: Negative Depression Screening Done: Yes 98449 - PHQ-9 Billing: Yes Source: Developed by Drs. Luis Fernandes, Michaela Quiles, Adrián Gonzales and colleagues, with an educational gaudencio from [employer]. Review of Systems Const All systems reviewed & are unremarkable except as noted in HPI and below Eyes Reports no additional complaints ENT Reports no additional complaints Card Reports no additional complaints Resp Reports no additional complaints GI Reports no additional complaints Reports no additional complaints Physical Exam Vital Signs: Last Vital Signs Pulse 80 06/11/24 10:07 BP 122/74 06/11/24 10:07 Pulse Ox 97 06/11/24 10:07 Oxygen Delivery Method Room Air 06/11/24 10:07 BMI result Body Mass Index 23.6 Const General: no acute distress HEENT Head: Yes normal to inspection Ears: hearing grossly normal bilaterally Neck Neck: Yes no lymphadenopathy and Yes supple Resp Effort & Inspection: normal respiratory effort Auscultation: clear to auscultation bilaterally Cardio Rhythm: regular rhythm Heart sounds: S1 normal heart sound present and S2 normal heart sound present GI Inspection: Yes normal to inspection Palpation (GI): Soft to palpation Percussion: Yes normal to percussion Auscultation: normal bowel sounds Neuro Cranial nerves: Yes CN's II-XII intact bilaterally Gait exam (Neuro): Normal gait present Motor exam (neuro): 5/5 motor strength present throughout Extrem General: Yes no clubbing, cyanosis or edema Assessment & Plan Assessment & Plan (1) Cervicalgia: Comment: MRI consistent with degenerative disc disease 04/2024 Code(s): M54.2 - Cervicalgia Plan: For chronic neck pain patient had an MRI consistent with degenerative disc disease. She will have an appointment with neurosurgeon. Patient denies any weakness or numbness in extremities and she has not got relief from pain management treatment for chronic neck pain. (2) Post[facility]: Comment[facility] Code(s): Z78.0 - Asymptomatic menopausal state Plan: Continue vitamin-D supplement (3) Hx of colonoscopy: Comment: normal 2021 normal [place] Code(s): Z98.890 - Other specified postprocedural states Plan: Up-to-date with colonoscopy, patient will continue stool softener for chronic constipation and was advised to increase fiber and fluid intake (4) Hypertension: Code(s): I10 - Essential (primary) hypertension Plan: Continue current medications (5) Hyperlipidemia: Code(s): E78.5 - Hyperlipidemia, unspecified Plan: Continue statin (6) Annual physical exam: Code(s): Z00.00 - Encounter for general adult medical examination without abnormal findings Plan: Well-balanced diet regular exercise discussed with the patient follow-up in 6 months Medications: Refilled docusate sodium (Dulcolax Stool Softener (docusate)) 100 mg PO BID 30 days 180 caps 3RF K59.00 - Constipation, unspecified Quality Reporting (2019) Depression/Bipolar (159/160/161/177) PHQ-9: Total score: 0 Coding Level of Care Code Medicare Subsequent (G0439) Diagnoses Cervicalgia M54.2 Postmenopausal Z78.0 Hx of colonoscopy Z98.890 Hypertension I10 Hyperlipidemia E78.5 Annual physical exam Z00.00 CPT Codes Advance Care Planning - Advance Care Planning discussion: On file, no changes ([id number]) Advance Care Planning - Time spent: 1-15 minutes, on File ([id number]) Advance Care Planning Advance Care Planning discussion: On file, no changes Forms completed: Health Care Proxy Time spent: 1-15 minutes, on File Did not discuss due to Cultural/Spiritual beliefs: Yes
[2024-06-11 10:07] VITALS: BP 122/74; PULSE 80; O2SAT 97; BMI 23.6
== END 2024-06-11 10:59 | disposition home or self-care (01) ==
PROVIDERS: PCP Internal Medicine; Visit Provider Internal Medicine
DX: Z00.00 Encounter for general adult medical examination without abnormal findings (principal); M54.2 Cervicalgia; Z78.0 Asymptomatic menopausal state; Z98.890 Other specified postprocedural states; I10 Essential (primary) hypertension; E78.5 Hyperlipidemia, unspecified

== ENCOUNTER → 2024-06-11 09:20 | Outpatient (BNVA) | payer MEDICARE, SELFPAY | PROVIDERS: PCP Internal Medicine; Visit Provider Internal Medicine ==

== ENCOUNTER 2024-06-13 09:07 | Outpatient (AMB) | payer MEDICARE, SELFPAY ==
--- NOTE | 2024-06-13 09:34 | HO.SPINEOV ---
Intake Visit Reasons: Back pain Intake Note: Mrs. Griffith is here today c/o low back pain. MRI done @ [facility]. Power Press Supervisor Required: No Allergies lisinopril Adverse Reaction (Intermediate, Verified 06/11/24 10:12) cough tizanidine Adverse Reaction (Intermediate, Verified 06/11/24 10:12) Nightmare Assessment & Plan Assessment & Plan (1) Spondylolisthesis of cervical region: Code(s): M43.12 - Spondylolisthesis, cervical region Category: Medical Plan Dear colleague, Thank you for referring Wendi to our office today. She is a pleasant 79-year-old female who comes in today with a chief complaint of isolated neck pain. She reports that her neck pain has been ongoing for a number of years. She reports no known inciting incident for pain. She denies any shooting radicular pains into her bilateral lower extremities. She denies any issues with dexterity/articulation. She denies any numbness/tingling in her bilateral hands. She reports she recently completed a course of physical therapy about 1 month ago. She found it was somewhat helpful. She has had cortisone injections in her neck before completed at [facility]. She feels her 1st set of injections at [facility] provided longstanding relief(1-2 years), but the last set she obtained only lasted 2 weeks. She has been taking Tylenol to help alleviate her neck pain with modest relief. PMH: Patient reports bilateral cataracts. Denies all other medical history. Social hx: The patient does not smoke, reports no substance use. Medications: Patient reports taking no medications, however her chart shows she is taking atorvastatin, acetaminophen, vitamin D3, docusate, olmesartan, omeprazole. Allergies: Lisinopril, tizanidine. Physical exam: The patient has 5/5 strength in her upper and lower extremities. She is able to ambulate well and rises from a seated position without difficulty. She has slight hyperreflexia in her right upper extremity but the rest of her reflexes are 2+ intact. She reports no sensational deficits. (-) Mast's, (-) Babinski's, (-) Lhermitte's, (-) clonus. Imaging review: MRI of the cervical spine completed at [facility] shows diffuse spondylosis of the cervical spine. There is an anterior listhesis of C4 on C5, which I would rate as a grade 1. There is moderate central canal and severe bilateral foraminal stenosis at C5-6. There is also some degree of ventral cord compression at C6-7. There is no evidence of T2 signal change her myelomalacia. Upon reviewing cervical spine x-ray, it appears that this degenerative segment from C5, 6, 7 may have auto fused into 1 large segment. This is evidenced by the large anterior osteophytes bridging between one another at these levels. Impression: Elle is a pleasant 79-year-old female who comes in today with a chief complaint of neck pain. She denies all symptoms of myelopathy or cervical radiculopathy. She reports that she does not want to have surgery at this time. Given her lack of cord signal change, lack of evidence for myelomalacia, and lack of radicular symptoms I encouraged her to continue pursuing conservative management for this issue. She was strongly encouraged to reach back out to our office if she develops any pains down either arm or has any issues with dexterity/numbness/tingling/balance/incontinence. She understands and agrees to this plan and will continue following up with our colleagues at pain management. Thank you for allowing us to care for your patient. The total time spent with this visit with this patient was 45 minutes reviewing history, physical exam, MRI imaging review, and implementation of treatment plan or further diagnostic testing Fidel Lyon MD,PhD [facility] Coding Level of Care Code New Pt Level 4 (56378) Diagnoses Spondylolisthesis of cervical region M43.12
== END 2024-06-13 10:39 | disposition home or self-care (01) ==
PROVIDERS: PCP Internal Medicine; Referring Provider Nurse Practitioner Family; Visit Provider Physician Assistant
DX: M43.12 Spondylolisthesis, cervical region (principal)
CPT/HCPCS: 99204

== ENCOUNTER → 2024-06-13 09:07 | Outpatient (BNVA) | payer MEDICARE, SELFPAY | PROVIDERS: PCP Internal Medicine; Visit Provider Physician Assistant | DX: M43.12 Spondylolisthesis, cervical region (principal) | CPT/HCPCS: 99202 ==

== ENCOUNTER 2024-07-18 10:14 | Outpatient (AMB) | payer MEDICARE, SELFPAY ==
--- NOTE | 2024-07-18 10:20 | MHC.OFFVIS ---
Vital Signs 07/18/24 10:24 Height 5 ft 3 in Weight 134 lb 2 oz BMI 23.8 BP 144/74 H Blood Pressure Location Lt brachial Position Sitting Pulse 89 Pulse Source Pulse Oximeter Pulse Oximetry (%) 99 Oxygen Delivery Method Room Air Intake Visit Reasons: FU patient request Intake Note: Pain today 02/25 [employer]visor Required: No Accompanied by: Self / Same As Patient Allergies lisinopril Adverse Reaction (Intermediate, Verified 07/18/24 10:25) cough tizanidine Adverse Reaction (Intermediate, Verified 07/18/24 10:25) Nightmare HPI Comments Details: Patient presents today for follow-up for low back pain with right-sided radicular. Patient was evaluated by [facility] for neck symptoms last month and was nonsurgical. Patient reports neck pain has been minimal but reports exacerbation of chronic low back pain and would like to undergo therapeutic injection. She reports good pain relief with cortisone injection in her back given by Dr. Ryan and per MRI findings in 2020. Unfortunately we do not have lumbar MRI report or imaging and will reach out to Dr. Ryan today. Back pain radiates to the right buttock and into right posterior thigh and into her calf and heell with associated numbness and tingling. She reports increased right leg pain and heaviness with prolonged standing or walking. She also has mild localized tenderness in the projection right GTB and right SI joint areas. Denies any fever or chills, abdominal or groin pain, footdrop, balance issues, bladder or bowel dysfunction or saddle anesthesia. PRIOR: Patient presents today to discuss recent cervical spine MRI results. Patient reports she completed 12 sessions of PT up to date and this has been beneficial. However, she continues with difficulty turning her head to the right. During sleep, she has to constantly re-adjust her positioning on the right. Reports bilateral radicular symptoms in to her both hands with parasthesias in her left 5th finger and right 4th and 5th fingers with numbness and tingling. Reports intermittent low back pain with radiation into her right lower extremity laterally and lateral-posterior right calf and heel. Patient is interested to undergo Neurosurgical evaluation prior to interventional treatments. She will continue PT and home exercise program. Patient reports recent Walk-in visits for URI, COVID and sinusitis with improvement after taking antibiotics. Denies any current cough, cold, infection, fever, or any other significant changes in her medical history, medications or recent hospitalizations. Reports constipation unrelieved with home and OTC treatments. Past Procedures: 04/16/24: Bilateral diagnostic C4, C5, C6 MBB-50% pain relief for 3 days PRIOR: Patient is a very pleasant 78-year-old female with history of osteopenia, arthritis, cervical and lumbar spondylosis, presents today for initial evaluation of recurrent neck pain with limited range of motion, stiffness and spasms. Denies any recent trauma, injury, or falls. Patient reports good pain relief with cortisone injections by Dr. Casillas in the past which provided her 6 months pain relief. Patient also reports seeing Dr. Hollins in the past for arthritic hand pain. She also reports completing physical therapy which was not very beneficial at that time. She remains active in his daily activities despite the pain in her neck and lower back. She has not tried any medications and interested to pursue interventional treatments and PT at this time. Pain affects her daily activities and functioning and sleep. Pain is constant and most severe during the day and evenings which she rates at 7-9/10 and least severe pain at 6/10. Denies any radicular symptoms to her upper extremities, bladder or bowel dysfunction or saddle anesthesia. Reports intermittent numbness and tingling sensations in her lower extremities without weakness. Oswestry neck disability index score=17 (moderate disability) Location: Lower neck and back Duration: Chronic pain for many years, worsening over past 4-5 months Characteristics of symptom or complaint: Aching, throbbing, stabbing, numbness, tingling Aggravating or associated factors: Any movements, range of motions Relieving factors: Rest, stretching exercises, heat Treatment: PT, injections [facility] Medical History GERD (gastroesophageal reflux disease) Vitamin D deficiency Hypertension Surgical History S/P cataract extraction Family History Father Hypertension Mother Breast cancer Diabetes Sister Diabetes Social History Household Members Other:: , from [place], 2 sons (one from COVID), Housing: House Patient Tobacco Use Status: Never used Tobacco e-Cigarette/Vaping Use: Never Used Current occupational status: retired Cognitive needs: No Hearing needs: No Vision needs: Yes Review of Systems Const All systems reviewed & are unremarkable except as noted in HPI and below Physical Exam Vital Signs: Last Vital Signs Pulse 89 07/18/24 10:24 BP 144/74 H 07/18/24 10:24 Pulse Ox 99 07/18/24 10:24 Oxygen Delivery Method Room Air 07/18/24 10:24 BMI result Body Mass Index 23.8 General: Appears afebrile. Alert and oriented. Mood and affect appropriate. Follows and participates in conversation appropriately. Respiratory effort is unlabored. No cough. Able to transition from sit to stand unassisted. Ambulates with bilaterally normal heel strike and toe off. General: Yes no CVA tenderness Back/Spine/Pelvis Other: Patient is able to walk and stand on heels and tip toes with mild difficulty on the right otherwise demonstrating good motor tone. No limping. Can flex forward to 70-75 degrees and extend to 5-10 degrees before experiencing lumbar pain. Demonstrates 5/5 strength of quadriceps bilaterally as well as flexion/dorsiflexion of bilateral feet against resistance. 2+ pedal pulses bilaterally. Straight leg rise with dorsiflexion this positive on the right. +2 patellar and +1 achilles reflexes bilaterally. Facet loading test positive bilaterally. Jamie sign, Dinesh?s, Gaenslen, Pelvic compression and Stinchfield tests are positive bilaterally, right>left. No groin pain with I/E hip rotations. Back: no CVA tenderness Cervical Spine: cervical muscular tenderness, pain with cervical ROM, No Cervical spine scars present, cervical spasm, No Cervical spine tenderness and No step off deformity Thoracic/Lumbar Spine: thoracic and lumbar spine normal to inspection, No Thoracic/lumbar spine scar(s), Lasegue's sign positive on the right and diffuse, pain with thoraco-lumbar ROM, paraspinal muscle tenderness on the right greater than left, thoraco-lumbar ROM limited, No thoracic spinal tenderness and lumbar spinal tenderness at L4 and at L5 Pelvis: buttock tenderness on the right Sacroiliac joints: bilaterally tender to palpation Results Reviewed Results Reviewed: MR CERVICAL SPINE WITHOUT CONTRAST 05/25/24 CLINICAL INFORMATION: Spondylolisthesis COMPARISON: Cervical spine radiographs February 09, 2024 FINDINGS: The craniocervical junction is intact. Nonspecific straightening of the normal cervical lordosis. Grade 1 anterolisthesis at C4-C5 and to a lesser extent at C2-C3. Vertebral body heights are normal without acute compression fracture. Intraosseous hemangioma within the T2 vertebral body. Diffuse disc desiccation with moderate to severe disc height loss at C5-C6 and C6-C7 and mild disc height loss at C4-C5. Ventral disc osteophytes at C5-C6 greater than C6-C7. There are multilevel degenerative changes with level by level detail as follows: C2-C3: Small central disc protrusion and asymmetric hypertrophic right facet arthrosis. No spinal canal stenosis. Mild right without left neural foraminal stenosis. C3-C4: Central disc protrusion with left greater than right uncovertebral joint hypertrophy and asymmetric hypertrophic left and mild right facet arthrosis. No spinal canal stenosis. Severe left without right neural foraminal stenosis. C4-C5: Severe hypertrophic bilateral facet arthrosis with unroofing of the posterior disc and bilateral uncovertebral joint hypertrophy. No spinal canal stenosis. Moderate to severe left and mild right neural foraminal stenosis. C5-C6: Disc osteophyte complex with right paracentral disc osteophyte protrusion, bilateral uncovertebral joint hypertrophy, and bilateral facet arthrosis. Moderate spinal canal stenosis with concave indentation along the right ventral cord and severe bilateral neural foraminal stenosis. C6-C7: Disc osteophyte complex with inferiorly migrated right paracentral disc extrusion, bilateral uncovertebral joint hypertrophy, and bilateral facet arthrosis. Mild right eccentric spinal canal stenosis with flattening along the right ventral cord and severe bilateral neural foraminal stenosis. C7-T1: Left greater than right facet arthrosis. No spinal canal stenosis. Mild bilateral neural foraminal narrowing. No cervical cord signal abnormality. No epidural fluid collection, mass, or hematoma. No significant abnormalities of the paraspinal musculature. The flow voids of the major cervical vessels are maintained. The visualized intracranial structures are normal. No demonstrated abnormalities in the visualized neck. IMPRESSION: 1. Multilevel cervical spondylosis as described above, worst at C5-C6 where there is moderate spinal canal stenosis with concave indentation along the right ventral cord and severe bilateral neural foraminal stenosis. No cord signal abnormality. 2. At C6-C7, there is mild right eccentric spinal canal stenosis with flattening along the right ventral cord and severe bilateral neural foraminal stenosis. 3. Additional level by level detail as above. X-RAY CERVICAL SPINE X-RAY LUMBAR SPINE 02/09/24 INDICATION: Cervical disc degeneration, spondylosis without myelopathy or radiculopathy cervical region. FINDINGS: Cervical spine: Straightening of the normal cervical lordosis. Degenerative changes between the anterior arch of C1 and the odontoid. 3.5 mm anterolisthesis of C4 on C5. Minimal retrolisthesis of C5 on C6. Marked degenerative changes with large anterior osteophytes and loss of disc space height at C5-C6. Moderate degenerative changes with anterior hypertrophic change and loss of disc space height at C6-C7. Lumbar spine: Dextroscoliosis of the lumbar spine. Advanced degenerative changes in the imaged lower thoracic spine. The bones are diffusely demineralized. Degenerative changes on limited images of the bilateral sacroiliac joints and hips. Facet arthritis in the [id number]-xluai lumbar spine. Advanced multilevel lumbar spondylosis with multilevel loss of disc space height most marked at L4-L5. Grade 1 retrolisthesis of L3 on L4. IMPRESSION: 1. Marked degenerative changes at C5-C6. 2. Advanced multilevel lumbar spondylosis most marked at L4-L5. Assessment & Plan Assessment & Plan (1) Lumbosacral spondylosis: Code(s): M47.817 - Spondylosis without myelopathy or radiculopathy, lumbosacral region Category: Medical (2) Degenerative joint disease of sacroiliac joint: Code(s): M46.1 - Sacroiliitis, not elsewhere classified Category: Medical (3) Lumbar radiculopathy, right: Code(s): M54.16 - Radiculopathy, lumbar region Category: Medical (4) Cervical spondylosis: Code(s): M47.812 - Spondylosis without myelopathy or radiculopathy, cervical region Category: Medical (5) Degenerative disc disease, cervical: Code(s): M50.30 - Other cervical disc degeneration, unspecified cervical region Category: Medical Plan Discussed interventional treatments for axial low back pain, radicular back pain and SI joint pain. We will send medical release request to Dr. Ryan's most recent MRI report of the lumbar spine that previous injections prior to scheduling injections. Continue Tylenol Arthritis, magnesium, heat therapy, activity modifications, adequate hydration and daily physical activity as tolerated. All questions and concerns been answered and patient agreed with the treatment plan. Follow-up for injection discussion and sooner as needed. Coding Level of Care Code Est Pt Level 3 (94390) Diagnoses Lumbosacral spondylosis M47.817 Degenerative joint disease of sacroiliac joint M46.1 Lumbar radiculopathy, right M54.16 Cervical spondylosis M47.812 Degenerative disc disease, cervical M50.30
[2024-07-18 10:24] VITALS: BP 144/74; PULSE 89; O2SAT 99; BMI 23.8
== END 2024-07-18 10:50 | disposition home or self-care (01) ==
LOC: HO.PMC 10:15
PROVIDERS: PCP Internal Medicine; Visit Provider Nurse Practitioner Family
DX: M47.817 Spondylosis without myelopathy or radiculopathy, lumbosacral region (principal); M46.1 Sacroiliitis, not elsewhere classified; M54.16 Radiculopathy, lumbar region; M47.812 Spondylosis without myelopathy or radiculopathy, cervical region; M50.30 Other cervical disc degeneration, unspecified cervical region
CPT/HCPCS: 99213

== ENCOUNTER → 2024-07-18 10:14 | Outpatient (BNVA) | payer MEDICARE, SELFPAY | PROVIDERS: PCP Internal Medicine; Visit Provider Nurse Practitioner Family | DX: M47.817 Spondylosis without myelopathy or radiculopathy, lumbosacral region (principal); M46.1 Sacroiliitis, not elsewhere classified; M54.16 Radiculopathy, lumbar region; M47.812 Spondylosis without myelopathy or radiculopathy, cervical region; M50.30 Other cervical disc degeneration, unspecified cervical region | CPT/HCPCS: 99212 ==

== ENCOUNTER 2024-10-22 08:45 | Outpatient (AMB) | payer MEDICARE, SELFPAY ==
--- NOTE | 2024-10-22 08:54 | A.OFFVIS_ITS ---
Vital Signs 10/22/24 08:59 Height 5 ft 3 in Weight 130 lb BMI 23.0 BP 180/83 H Blood Pressure Location Lt brachial Position Sitting Pulse 77 Pulse Source Pulse Oximeter Intake Visit Reasons: F/U neck pain patient request [employer] Super[employer] Required: No Accompanied by: Family/Other Allergies lisinopril Adverse Reaction (Intermediate, Verified 10/22/24 09:00) cough tizanidine Adverse Reaction (Intermediate, Verified 10/22/24 09:00) Nightmare HPI Comments Details: Patient presents today for follow-up for worsening neck and right shoulder pain with radiculopathy. 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 Patient arrived today tearful and grieving due to recent passing of her due to leukemia which they just found out few months ago. Patient is accompanied by her close family friend. Patient reports when she fell 4 weeks ago, she fell forward and injured her right shoulder and both knees. Patient denies any loss of consciousness or head trauma. She reports neck and shoulder pain with radiation into right posterior and lateral shoulder and down into right elbow and right fingers, mostly on the 2nd and 3rd fingers. She cannot lift her right arm above heart level and has weakness with numbness and t ingling in her right hand. She has been managing her symptoms with muscle relaxant, gabapentin and Ibuprofen with continued symptoms. Denies any fever or chills, dizziness, headache, shortness of breaths, chest pain, visual disturbances, gait imbalances, bladder or bowel dysfunction, or saddle anesthesia. PRIOR 07/18/24: Patient presents today for follow-up for low back pain with right-sided rad icular. Patient was evaluated by [facility] for neck symptoms last month and was nonsurgical. Patient reports neck pain has been minimal but reports exacerbation of chronic low back pain and would like to undergo therapeutic injection. She reports good pain relief with cortisone injection in her back given by Dr. Ryan and per MRI findings in 2020. Unfortunately we do not have lumbar MRI report or imaging and will reach out to Dr. Ryan today. Back pain radiates to the right buttock and into right posterior thigh and into her calf and heell with associated numbness and tingling. She reports increased right leg pain and heaviness with prolonged standing or walking. She also has mild localized tenderness in the projection right GTB and right SI joint areas. Denies any fever or chills, abdominal or groin pain, footdrop, balance issues, bladder or bowel dysfunction or saddle anesthesia. PRIOR: Patient presents today to discuss recent cervical spine MRI results. Patient reports she completed 12 sessions of PT up to date and this has been beneficial. However, she continues with difficulty turning her head to the right. During sleep, she has to constantly re-adjust her positioning on the right. Reports bilateral radicular symptoms in to her both hands with parasthesias in her left 5th finger and right 4th and 5th fingers with numbness and tingling. Reports intermittent low back pain with radiation into her right lower extremity laterally and lateral-posterior right calf and heel. Patient is interested to undergo Neurosurgical evaluation prior to interventional treatments. She will continue PT and home exercise program. Patient reports recent Walk-in visits for URI, COVID and sinusitis with improvement after taking antibiotics. Denies any current cough, cold, infection, fever, or any other significant changes in her medical history, medications or recent hospitalizations. Reports constipation unrelieved with home and OTC treatments. Past Procedures: 04/16/24: Bilateral diagnostic C4, C5, C6 MBB-50% pain relief for 3 days PRIOR: Patient is a very pleasant 78-year-old female with history of osteopenia, arthritis, cervical and lumbar spondylosis, presents today for initial evaluation of recurrent neck pain with limited range of motion, stiffness and spasms. Denies any recent trauma, injury, or falls. Patient reports good pain relief with cortisone injections by Dr. Casillas in the past which provided her 6 months pain relief. Patient also reports seeing Dr. Hollins in the past for arthritic hand pain. She also reports completing physical therapy which was not very beneficial at that time. She remains active in his daily activities despite the pain in her neck and lower back. She has not tried any medications and interested to pursue interventional treatments and PT at this time. Pain affects her daily activities and functioning and sleep. Pain is constant and most severe during the day and evenings which she rates at 7-9/10 and least severe pain at 6/10. Denies any radicular symptoms to her upper extremities, bladder or bowel dysfunction or saddle anesthesia. Reports intermittent numbness and tingling sensations in her lower extremities without weakness. Oswestry neck disability index score=17 (moderate disability) Location: Lower neck and back Duration: Chronic pain for many years, worsening over past 4-5 months Characteristics of symptom or complaint: Aching, throbbing, stabbing, numbness, tingling Aggravating or associated factors: Any movements, range of motions Relieving factors: Rest, stretching exercises, heat Treatment: PT, injections PFSH Medical History GERD (gastroesophageal reflux disease) Vitamin D deficiency Hypertension Surgical History S/P cataract extraction Family History Father Hypertension Mother Breast cancer Diabetes Sister Diabetes Social History Household Members Other:: , from [facility], 2 sons (one from COVID), Housing: House Patient Tobacco Use Status: Never used Tobacco e-Cigarette/Vaping Use: Never Used Current occupational status: retired Cognitive needs: No Hearing needs: No Vision needs: Yes Review of Systems Const All systems reviewed & are unremarkable except as noted in HPI and below Physical Exam Vital Signs: Last Vital Signs Pulse 77 10/22/24 08:59 BP 180/83 H 10/22/24 08:59 BMI result Body Mass Index 23.0 General: Appears afebrile. Alert and oriented. Mood and affect appropriate. Tearful, sad. Follows and participates in conversation appropriately. Respiratory effort is unlabored. No cough. Able to transition from sit to stand unassisted. Ambulates with bilaterally normal heel strike and toe off. Neck Other: Patient with decreased cervical ROM in all planes/especially with right lateral rotation. Reports increased pain with cervical extension and flexion. Spurling compression test is positive. Pain is unchanged by Spurling maneuver with retraction. Elvey's tension test positive on the right, with radiation of pain from neck to elbow and into right 2nd-3rd fingers, partially right thumb. Lhermitte's test was negative. DTR intact, +1, diminished on the right. Patient demonstrated 5/5 left and 4/5 right motor strength of bilateral upper extremities. Able to make fist, weaker hand grasps on the right. 2 + radial pulses. Significant tightness throughout right upper trapezius as well as TTP throughout bilateral upper trapezius muscles. No paravertebral tenderness over facet joints bilaterally. Neck: Yes normal visual inspection, Yes no lymphadenopathy, Yes supple, No anterior neck swelling, Yes no JVD, No prominent supraclavicular fat pad and Yes prominent dorsocervical fat pad Back/Spine/Pelvis Cervical Spine: cervical muscular tenderness, pain with cervical ROM, No Cervical spine scars present, cervical spasm, No Cervical spine tenderness and No step off deformity Thoracic/Lumbar Spine: thoracic and lumbar spine normal to inspection, No Thoracic/lumbar spine scar(s), pain with thoraco-lumbar ROM, paraspinal muscle tenderness on the right greater than left, thoraco-lumbar ROM limited, No thoracic spinal tenderness and lumbar spinal tenderness at L4 and at L5 Pelvis: buttock tenderness on the right Sacroiliac joints: bilaterally tender to palpation Extrem General: Yes capillary refill normal, Yes no clubbing, cyanosis or edema and Yes no calf tenderness Right upper extremity: shoulder/upper arm (Limited ROM, I/E rotations reproduces moderate pain) Details: normal to inspection and tenderness Location: over the subacromial bursa and over the deltoid bursa; no swelling, no ecchymosis, no crepitus and no unusual warmth Psych Appearance: grossly normal and well kempt Mental Status: mental status grossly normal Speech and movement: Normal speech and movement present and Clear speech present Affect: normal affect and Sad affect present Attitude: cooperative Thought process: Normal thought process present Thought content: Normal thought content present and Depressive thoughts present Insight: Good insight present (Psych) Judgement: Good judgement present (Psych) Results Reviewed Results Reviewed: MR CERVICAL SPINE WITHOUT CONTRAST 05/25/24 CLINICAL INFORMATION: Spondylolisthesis COMPARISON: Cervical spine radiographs February 09, 2024 FINDINGS: The craniocervical junction is intact. Nonspecific straightening of the normal cervical lordosis. Grade 1 anterolisthesis at C4-C5 and to a lesser extent at C2-C3. Vertebral body heights are normal without acute compression fracture. Intraosseous hemangioma within the T2 vertebral body. Diffuse disc desiccation with moderate to severe disc height loss at C5-C6 and C6-C7 and mild disc height loss at C4-C5. Ventral disc osteophytes at C5-C6 greater than C6-C7. There are multilevel degenerative changes with level by level detail as follows: C2-C3: Small central disc protrusion and asymmetric hypertrophic right facet arthrosis. No spinal canal stenosis. Mild right without left neural foraminal stenosis. C3-C4: Central disc protrusion with left greater than right uncovertebral joint hypertrophy and asymmetric hypertrophic left and mild right facet arthrosis. No spinal canal stenosis. Severe left without right neural foraminal stenosis. C4-C5: Severe hypertrophic bilateral facet arthrosis with unroofing of the posterior disc and bilateral uncovertebral joint hypertrophy. No spinal canal stenosis. Moderate to severe left and mild right neural foraminal stenosis. C5-C6: Disc osteophyte complex with right paracentral disc osteophyte protrusion, bilateral uncovertebral joint hypertrophy, and bilateral facet arthrosis. Moderate spinal canal stenosis with concave indentation along the right ventral cord and severe bilateral neural foraminal stenosis. C6-C7: Disc osteophyte complex with inferiorly migrated right paracentral disc extrusion, bilateral uncovertebral joint hypertrophy, and bilateral facet arthrosis. Mild right eccentric spinal canal stenosis with flattening along the right ventral cord and severe bilateral neural foraminal stenosis. C7-T1: Left greater than right facet arthrosis. No spinal canal stenosis. Mild bilateral neural foraminal narrowing. No cervical cord signal abnormality. No epidural fluid collection, mass, or hematoma. No significant abnormalities of the paraspinal musculature. The flow voids of the major cervical vessels are maintained. The visualized intracranial structures are normal. No demonstrated abnormalities in the visualized neck. IMPRESSION: 1. Multilevel cervical spondylosis as described above, worst at C5-C6 where there is moderate spinal canal stenosis with concave indentation along the right ventral cord and severe bilateral neural foraminal stenosis. No cord signal abnormality. 2. At C6-C7, there is mild right eccentric spinal canal stenosis with flattening along the right ventral cord and severe bilateral neural foraminal stenosis. 3. Additional level by level detail as above. X-RAY CERVICAL SPINE X-RAY LUMBAR SPINE 02/09/24 INDICATION: Cervical disc degeneration, spondylosis without myelopathy or radiculopathy cervical region. FINDINGS: Cervical spine: Straightening of the normal cervical lordosis. Degenerative changes between the anterior arch of C1 and the odontoid. 3.5 mm anterolisthesis of C4 on C5. Minimal retrolisthesis of C5 on C6. Marked degenerative changes with large anterior osteophytes and loss of disc space height at C5-C6. Moderate degenerative changes with anterior hypertrophic change and loss of disc space height at C6-C7. Lumbar spine: Dextroscoliosis of the lumbar spine. Advanced degenerative changes in the imaged lower thoracic spine. The bones are diffusely demineralized. Degenerative changes on limited images of the bilateral sacroiliac joints and hips. Facet arthritis in the [id number] lumbar spine. Advanced multilevel lumbar spondylosis with multilevel loss of disc space height most marked at L4-L5. Grade 1 retrolisthesis of L3 on L4. IMPRESSION: 1. Marked degenerative changes at C5-C6. 2. Advanced multilevel lumbar spondylosis most marked at L4-L5. Assessment & Plan Assessment & Plan (1) Right shoulder pain: Code(s): M25.511 - Pain in right shoulder Category: Medical (2) Cervical spondylosis: Code(s): M47.812 - Spondylosis without myelopathy or radiculopathy, cervical region Category: Medical (3) Cervical radiculopathy due to degenerative joint disease of spine: Comment: Follows up with a pain management Code(s): M47.22 - Other spondylosis with radiculopathy, cervical region Category: Medical (4) Degenerative cervical spinal stenosis: Code(s): M48.02 - Spinal stenosis, cervical region Category: Medical (5) Spondylolisthesis of cervical region: Code(s): M43.12 - Spondylolisthesis, cervical region Category: Medical (6) Grieving: Code(s): F43.21 - Adjustment disorder with depressed mood Category: Medical Plan Right shoulder xray to assess for degenerative changes. Schedule Right C6-C7 interlaminar parasagittal IRAIS with local anesthesia and fluoroscopy for right cervical radicular symptoms. Expectations, risks and benefits were reviewed. Patient is aware she will be contacted to schedule this procedure. Emotional support and active listening provided to patient today as she grieving recent loss of her on 10/09/24. She reports good family and friend support. All questions were answered and the patient is in agreement with the plan. Follow-up after injections and sooner as needed. Orders: Orders XR shoulder RT min 2V Today M25.511 - Pain in right shoulder Coding Level of Care Code Est Pt Level 4 (06577) Complex EM visit Add On G2211 Diagnoses Right shoulder pain M25.511 Cervical spondylosis M47.812 Cervical radiculopathy due to degenerative joint disease of spine M47.22 Degenerative cervical spinal stenosis M48.02 Spondylolisthesis of cervical region M43.12 Grieving F43.21
[2024-10-22 08:59] VITALS: BP 180/83; PULSE 77; BMI 23.0
== END 2024-10-22 09:35 | disposition home or self-care (01) ==
PROVIDERS: PCP Internal Medicine; Visit Provider Nurse Practitioner Family
DX: M25.511 Pain in right shoulder (principal); M47.812 Spondylosis without myelopathy or radiculopathy, cervical region; M47.22 Other spondylosis with radiculopathy, cervical region; M48.02 Spinal stenosis, cervical region; M43.12 Spondylolisthesis, cervical region; F43.21 Adjustment disorder with depressed mood
CPT/HCPCS: 99214; G2211

== ENCOUNTER 2024-10-22 08:45 | Outpatient (REF) | payer MEDICARE, SELFPAY ==
--- NOTE | ~2024-10-22 | XR_ITS ---
CLINICAL HISTORY: M25.511 - Pain in right shoulder Right shoulder four views Comparison: None Findings: No acute fracture or dislocation identified. Degenerative change glenohumeral and AC joints. No radiopaque foreign body noted. Impression: No acute bony abnormality This document has been electronically signed by: Nagi Coyle MD on 10/22/2024 23:42:05
== END 2024-10-22 08:46 | disposition home or self-care (01) ==
LOC: HO.XRAY 08:45
PROVIDERS: PCP Internal Medicine; Visit Provider Nurse Practitioner Family
DX: M25.511 Pain in right shoulder (principal); M47.812 Spondylosis without myelopathy or radiculopathy, cervical region; M47.22 Other spondylosis with radiculopathy, cervical region; M43.12 Spondylolisthesis, cervical region; F43.21 Adjustment disorder with depressed mood
CPT/HCPCS: 73030; 99212

== ENCOUNTER → 2024-10-22 09:54 | Outpatient (BNV) | payer MEDICARE, SELFPAY | PROVIDERS: PCP Internal Medicine; Visit Provider Radiology Diagnostic Radiology | DX: M25.511 Pain in right shoulder (principal) | CPT/HCPCS: 73030 ==

== ENCOUNTER 2024-11-07 06:07 | Outpatient (REF) | payer MEDICARE, SELFPAY | END 2024-11-07 06:08 | disposition home or self-care (01) | LOC: CF 06:07 | PROVIDERS: Visit Provider Internal Medicine | DX: Z13.89 Encounter for screening for other disorder (principal) ==

== ENCOUNTER 2024-11-15 14:48 | Outpatient (AMB) | payer MEDICARE, SELFPAY ==
[2024-11-15 14:58] VITALS: BP 144/87; PULSE 94; O2SAT 99; BMI 23.0
--- NOTE | 2024-11-15 14:58 | A.OFFVIS_ITS ---
Vital Signs 11/15/24 14:58 Height 5 ft 3 in Weight 130 lb BMI 23.0 BP 144/87 H Blood Pressure Location Lt brachial Position Sitting Pulse 94 Pulse Source Pulse Oximeter Pulse Oximetry (%) 99 Oxygen Delivery Method Room Air Intake Visit Reasons: Follow Up Intake Note: Pain today 06/27 Bell Spinner Sousaphones Required: No Accompanied by: Self / Same As Patient Allergies lisinopril Adverse Reaction (Intermediate, Verified 11/15/24 14:59) cough tizanidine Adverse Reaction (Intermediate, Verified 11/15/24 14:59) Nightmare HPI Comments Details: Patient presents today for follow up with increased right shoulder and neck pain. She is scheduled for Right C6-C7 Interlaminar IRAIS on 11/28/24 for radicular neck symptoms and has pending Orthopedic evaluation on 12/31/24. Patient reports pain has been difficult to control at home with Tylenol, muscle relaxant, gabapentin, Ibuprofen and activity modifications. She cannot sleep on her right side due to pain. Pain affects her daily functioning, ROM, sleep and social interactions. Recent right shoulder xray showed degenerative change of glenohumeral and AC joints. Denies any recent cough, cold, infection, fever or other significant changes in medical history since last office visit. PRIOR: Patient presents today for follow-up for worsening neck and right shoulder pain with radiculopathy. 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 Patient arrived today tearful and grieving due to recent passing of her due to leukemia which they just found out few months ago. Patient is accompanied by her close family friend. Patient reports when she fell 4 weeks ago, she fell forward and injured her right shoulder and both knees. Patient denies any loss of consciousness or head trauma. She reports neck and shoulder pain with radiation into right posterior and lateral shoulder and down into right elbow and right fingers, mostly on the 2nd and 3rd fingers. She can not lift her right arm above heart level and has weakness with numbness and tingling in her right hand. She has been managing her symptoms with muscle relaxant, gabapentin and Ibuprofen with continued symptoms. Denies any fever or chills, dizziness, headache, shortness of breaths, chest pain, visual disturbances, gait imbalances, bladder or bowel dysfunction, or saddle anesthesia. PRIOR 07/18/24: Patient presents today for follow-up for low back pain with right-sided radicular. Patient was evaluated by [facility] for neck symptoms last month and was nonsurgical. Patient reports neck pain has been minimal but reports exacerbation of chronic low back pain and would like to undergo therapeutic injection. She reports good pain relief with cortisone injection in her back given by Dr. Ryan and per MRI findings in 2020. Unfortunately we do not have lumbar MRI report or imaging and will reach out to Dr. Ryan today. Back pain radiates to the right buttock and into right posterior thigh and into her calf and heell with associated numbness and tingling. She reports increased right leg pain and heaviness with prolonged standing or walking. She also has mild localized tenderness in the projection right GTB and right SI joint areas. Denies any fever or chills, abdominal or groin pain, footdrop, balance issues, bladder or bowel dysfunction or saddle anesthesia. PRIOR: Patient presents today to discuss recent cervical spine MRI results. Patient reports she completed 12 sessions of PT up to date and this has been beneficial. However, she continues with difficulty turning her head to the right. During sleep, she has to constantly re-adjust her positioning on the right. Reports bilateral radicular symptoms in to her both hands with parasthesias in her left 5th finger and right 4th and 5th fingers with numbness and tingling. Reports intermittent low back pain with radiation into her right lower extremity laterally and lateral-posterior right calf and heel. Patient is interested to undergo Neurosurgical evaluation prior to interventional treatments. She will continue PT and home exercise program. Patient reports recent Walk-in visits for URI, COVID and sinusitis with improvement after taking antibiotics. Denies any current cough, cold, infection, fever, or any other significant changes in her medical history, medications or recent hospitalizations. Reports constipation unrelieved with home and OTC treatments. Past Procedures: 04/16/24: Bilateral diagnostic C4, C5, C6 MBB-50% pain relief for 3 days PRIOR: Patient is a very pleasant 78-year-old female with history of osteopenia, arthritis, cervical and lumbar spondylosis, presents today for initial evaluation of recurrent neck pain with limited range of motion, stiffness and spasms. Denies any recent trauma, injury, or falls. Patient reports good pain relief with cortisone injections by Dr. Casillas in the past which provided her 6 months pain relief. Patient also reports seeing Dr. Hollins in the past for arthritic hand pain. She also reports completing physical therapy which was not very beneficial at that time. She remains active in his daily activities despite the pain in her neck and lower back. She has not tried any medications and interested to pursue interventional treatments and PT at this time. Pain affects her daily activities and functioning and sleep. Pain is constant and most severe during the day and evenings which she rates at 7-9/10 and least severe pain at 6/10. Denies any radicular symptoms to her upper extremities, bladder or bowel dysfunction or saddle anesthesia. Reports intermittent numbness and tingling sensations in her lower extremities without weakness. Oswestry neck disability index score=17 (moderate disability) Location: Lower neck and back Duration: Chronic pain for many years, worsening over past 4-5 months Characteristics of symptom or complaint: Aching, throbbing, stabbing, numbness, tingling Aggravating or associated factors: Any movements, range of motions Relieving factors: Rest, stretching exercises, heat Treatment: PT, injections [facility] Medical History GERD (gastroesophageal reflux disease) Vitamin D deficiency Hypertension Surgical History S/P cataract extraction Family History Father Hypertension Mother Breast cancer Diabetes Sister Diabetes Social History Household Members Other:: , from [facility], 2 sons (one from COVID), Housing: House Patient Tobacco Use Status: Never used Tobacco e-Cigarette/Vaping Use: Never Used Current occupational status: retired Cognitive needs: No Hearing needs: No Vision needs: Yes Review of Systems Const All systems reviewed & are unremarkable except as noted in HPI and below Physical Exam Vital Signs: Last Vital Signs Pulse 94 11/15/24 14:58 BP 144/87 H 11/15/24 14:58 Pulse Ox 99 11/15/24 14:58 Oxygen Delivery Method Room Air 11/15/24 14:58 BMI result Body Mass Index 23.0 General: Appears afebrile. Alert and oriented. Mood and affect appropriate. Tearful, sad. Follows and participates in conversation appropriately. Respiratory effort is unlabored. No cough. Able to transition from sit to stand unassisted. Ambulates with bilaterally normal heel strike and toe off. Neck Other: Patient with decreased cervical ROM in all planes/especially with right lateral rotation and bending. Reports increased pain with cervical extension and fl exion. Spurling compression test is positive. Pain is unchanged by Spurling maneuver with retraction. Elvey's tension test positive on the right, with radiation of pain from neck to elbow and into right 2nd-3rd fingers, partially right thumb. Lhermitte's test was negative. DTR intact, +1, diminished on the right. Patient demonstrated 5/5 left and 4/5 right motor strength of bilateral upper extremities. Able to make fist, weaker hand grasps on the right. 2 + radial pulses. Significant tightness throughout right upper trapezius as well as TTP throughout bilateral upper trapezius muscles. No paravertebral tenderness over facet joints bilaterally. Neck: Yes normal visual inspection, Yes no lymphadenopathy, Yes supple, No anterior neck swelling, Yes no JVD and Yes prominent dorsocervical fat pad Back/Spine/Pelvis Cervical Spine: No Lhermitte's sign positive, cervical muscular tenderness, pain with cervical ROM, No Cervical spine scars present, cervical spasm, No Cervical spine tenderness and No step off deformity Thoracic/Lumbar Spine: thoracic and lumbar spine normal to inspection, No Thoracic/lumbar spine scar(s), pain with thoraco-lumbar ROM, paraspinal muscle tenderness on the right greater than left, thoraco-lumbar ROM limited, No thoracic spinal tenderness and lumbar spinal tenderness at L4 and at L5 Pelvis: buttock tenderness on the right Sacroiliac joints: bilaterally tender to palpation Extrem General: Yes capillary refill normal, Yes no clubbing, cyanosis or edema and Yes no calf tenderness Right upper extremity: shoulder/upper arm (Limited ROM, I/E rotations reproduces moderate pain) Details: normal to inspection and tenderness Location: over the subacromial bursa and over the deltoid bursa; no swelling, no ecchymosis, no crepitus and no unusual warmth Psych Appearance: grossly normal and well kempt Mental Status: mental status grossly normal Speech and movement: Normal speech and movement present and Clear speech present Affect: normal affect and Sad affect present Attitude: cooperative Thought process: Normal thought process present Thought content: Normal thought content present and Depressive thoughts present Insight: Good insight present (Psych) Judgement: Good judgement present (Psych) Results Reviewed Results Reviewed: XR SHOULDER RT min 2V 10/22/24 CLINICAL HISTORY: M25.511 - Pain in right shoulder Comparison: None FINDINGS: No acute fracture or dislocation identified. Degenerative change glenohumeral and AC joints. No radiopaque foreign body noted. IMPRESSION: No acute bony abnormality MR CERVICAL SPINE WITHOUT CONTRAST 05/25/24 CLINICAL INFORMATION: Spondylolisthesis COMPARISON: Cervical spine radiographs February 09, 2024 FINDINGS: The craniocervical junction is intact. Nonspecific straightening of the normal cervical lordosis. Grade 1 anterolisthesis at C4-C5 and to a lesser extent at C2-C3. Vertebral body heights are normal without acute compression fracture. Intraosseous hemangioma within the T2 vertebral body. Diffuse disc desiccation with moderate to severe disc height loss at C5-C6 and C6-C7 and mild disc height loss at C4-C5. Ventral disc osteophytes at C5-C6 greater than C6-C7. There are multilevel degenerative changes with level by level detail as follows: C2-C3: Small central disc protrusion and asymmetric hypertrophic right facet arthrosis. No spinal canal stenosis. Mild right without left neural foraminal stenosis. C3-C4: Central disc protrusion with left greater than right uncovertebral joint hypertrophy and asymmetric hypertrophic left and mild right facet arthrosis. No spinal canal stenosis. Severe left without right neural foraminal stenosis. C4-C5: Severe hypertrophic bilateral facet arthrosis with unroofing of the posterior disc and bilateral uncovertebral joint hypertrophy. No spinal canal stenosis. Moderate to severe left and mild right neural foraminal stenosis. C5-C6: Disc osteophyte complex with right paracentral disc osteophyte protrusion, bilateral uncovertebral joint hypertrophy, and bilateral facet arthrosis. Moderate spinal canal stenosis with concave indentation along the right ventral cord and severe bilateral neural foraminal stenosis. C6-C7: Disc osteophyte complex with inferiorly migrated right paracentral disc extrusion, bilateral uncovertebral joint hypertrophy, and bilateral facet arthrosis. Mild right eccentric spinal canal stenosis with flattening along the right ventral cord and severe bilateral neural foraminal stenosis. C7-T1: Left greater than right facet arthrosis. No spinal canal stenosis. Mild bilateral neural foraminal narrowing. No cervical cord signal abnormality. No epidural fluid collection, mass, or hematoma. No significant abnormalities of the paraspinal musculature. The flow voids of the major cervical vessels are maintained. The visualized intracranial structures are normal. No demonstrated abnormalities in the visualized neck. IMPRESSION: 1. Multilevel cervical spondylosis as described above, worst at C5-C6 where there is moderate spinal canal stenosis with concave indentation along the right ventral cord and severe bilateral neural foraminal stenosis. No cord signal abnormality. 2. At C6-C7, there is mild right eccentric spinal canal stenosis with flattening along the right ventral cord and severe bilateral neural foraminal stenosis. 3. Additional level by level detail as above. X-RAY CERVICAL SPINE X-RAY LUMBAR SPINE 02/09/24 INDICATION: Cervical disc degeneration, spondylosis without myelopathy or radiculopathy cervical region. FINDINGS: Cervical spine: Straightening of the normal cervical lordosis. Degenerative changes between the anterior arch of C1 and the odontoid. 3.5 mm anterolisthesis of C4 on C5. Minimal retrolisthesis of C5 on C6. Marked degenerative changes with large anterior osteophytes and loss of disc space height at C5-C6. Moderate degenerative changes with anterior hypertrophic change and loss of disc space height at C6-C7. Lumbar spine: Dextroscoliosis of the lumbar spine. Advanced degenerative changes in the imaged lower thoracic spine. The bones are diffusely demineralized. Degenerative changes on limited images of the bilateral sacroiliac joints and hips. Facet arthritis in the [id number] lumbar spine. Advanced multilevel lumbar spondylosis with multilevel loss of disc space height most marked at L4-L5. Grade 1 retrolisthesis of L3 on L4. IMPRESSION: 1. Marked degenerative changes at C5-C6. 2. Advanced multilevel lumbar spondylosis most marked at L4-L5. Assessment & Plan Assessment & Plan (1) Cervical radiculopathy due to degenerative joint disease of spine: Comment: Follows up with a pain management Code(s): M47.22 - Other spondylosis with radiculopathy, cervical region Category: Medical (2) Cervical spondylosis: Code(s): M47.812 - Spondylosis without myelopathy or radiculopathy, cervical region Category: Medical (3) Right shoulder pain: Code(s): M25.511 - Pain in right shoulder Category: Medical (4) Degenerative cervical spinal stenosis: Code(s): M48.02 - Spinal stenosis, cervical region Category: Medical (5) Spondylolisthesis of cervical region: Code(s): M43.12 - Spondylolisthesis, cervical region Category: Medical Plan Right shoulder xray results were discussed with patient today. Pending Orthopedic evaluation in December. Proceed with Right C6-C7 interlaminar parasagittal IRAIS with local anesthesia and fluoroscopy for right cervical radicular symptoms as schedule on 11/28/24. Short script provided for tramadol for moderate-severe neck and shoulder pain while patient awaits injection and evaluation. Side effects and precautions were discussed with patient. Narcan sent with tramadol. Refill provided for Tylenol Arthritis per patient's request. All questions were answered and the patient is in agreement with the plan. Follow-up after injection and sooner as needed. Medications: New tramadol 50 mg PO BID 15 days PRN 30 tabs 0RF pain M25.511 - Pain in right shoulder, M47.22 - Other spondylosis with radiculopathy, cervical region, M47.812 - Spondylosis without myelopathy or radiculopathy, cervical region naloxone 4 mg/actuation (Narcan) spray 1 dose into ONE nostril; alternate nostrils w each dose until help arrives 4 mg intranasal Q2M PRN 2 ea 0RF opioid overdose Refilled acetaminophen ER (Tylenol Arthritis Pain) 650 mg PO Q12H 90 tabs 0RF Coding Level of Care Code Est Pt Level 4 (94581) Complex EM visit Add On G2211 Diagnoses Cervical radiculopathy due to degenerative joint disease of spine M47.22 Cervical spondylosis M47.812 Right shoulder pain M25.511 Degenerative cervical spinal stenosis M48.02 Spondylolisthesis of cervical region M43.12
== END 2024-11-15 15:48 | disposition home or self-care (01) ==
PROVIDERS: PCP Internal Medicine; Visit Provider Nurse Practitioner Family
DX: M47.22 Other spondylosis with radiculopathy, cervical region (principal); M47.812 Spondylosis without myelopathy or radiculopathy, cervical region; M25.511 Pain in right shoulder; M48.02 Spinal stenosis, cervical region; M43.12 Spondylolisthesis, cervical region
CPT/HCPCS: 99214; G2211

== ENCOUNTER → 2024-11-15 14:48 | Outpatient (BNVA) | payer MEDICARE, SELFPAY | PROVIDERS: PCP Internal Medicine; Visit Provider Nurse Practitioner Family | DX: M47.22 Other spondylosis with radiculopathy, cervical region (principal); M25.511 Pain in right shoulder; M48.02 Spinal stenosis, cervical region; M43.12 Spondylolisthesis, cervical region | CPT/HCPCS: 99212 ==

== ENCOUNTER 2024-11-28 06:07 | Outpatient (REF) | payer MEDICARE, SELFPAY ==
--- NOTE | ~2024-11-28 | FL_ITS ---
EXAMINATION: XR FLUOROSCOPY WITH IMAGES CLINICAL INFORMATION: Spinal stenosis cervical region. Pain management epidural injection. COMPARISON: None available. TECHNIQUE: Fluoroscopy provided to: Dr. Rand Fluoroscopy time: 0.2 minutes DAP: [id number] mGycm2 Images: 2 FINDINGS: 2 spot images obtained of the lower cervical spine during epidural injection. Please refer to full procedural report for details. FL/FL guidance in treatment room IMPRESSION: Fluoroscopic guidance. Electronically signed by: Homero Pérez MD 11/28/2024 01:24 PM EDT
--- OUTSIDE RECORDS SUMMARY | 2024-11-28 06:11 | XMS_ITS | Encounter Summary ---
Author Organization [facility] Address [address] [place] [address] Care Team Providers Care Structural Steel Worker Apprentice Name Role Phone Misa Ferro MD Primary Care Provider Luis Lao DO Primary Care Provider Kimberly Zack Otero MD Primary Care Provider [phone] Michelle Bettencourt MD Primary Care Prov ider [facility] Pcp Primary Care Provider Unavailabl e Encounter Details Date Type Department Care Team Description 03/02/2020 Orders Only Internal Medicine - [address], [address] [place] [address] Dashawn Cross PA-C Social History Tobacco Use Types Packs/Day Years Used Date Smoking Tobacco: Never Smokeless Tobacco: Never Alcohol Use Standard Drinks/Week Comments No 0 (1 standard drink = 0.6 oz pur e alcohol) Sex Assigned at Date Recorded Not on file Job Start Date Occupation Industry Not on file Not on file Not on file documented as of this encounter Plan of Treatment Not on file documented as of this encounter Visit Diagnoses Not on filedocumented in this encounter Care Teams Structural Steel Worker Apprentice Relationship Specialty Start Date End Date Misa Ferro MD PCP - General Internal Medicine 03/06/17 02/17/21 Luis Goff DO PCP - General Internal Medicine 02/18/21 Zack Cintron MD [address] [place] [id number] PCP - General Internal Medicine 07/09/21 06/06/22 Michelle Bettencourt MD [address] [place] [phone] PCP - General Internal Medicine 06/07/22 06/23/22 [facility], Pcp [address] [place] [id number] PCP - General Internal Medicine 06/24/22 documented as of this encounter
--- OUTSIDE RECORDS SUMMARY | 2024-11-28 06:11 | XMS_ITS | Encounter Summary ---
Author Organization [facility] Address [address] [place] [address] Care Team Providers Care Aircraft Pneudraulic Systems Mechanic Name Role Phone Misa Ferro MD Primary Care Provider Unava Luis Gordon DO Primary Care Provider Kimberly Zack Otero MD Primary Care Provider [phone] Michelle Bettencourt MD Primary Care Prov ider [facility], Pcp Primary Care Provider Unavailabl e Reason for Visit * Reason Onset Date Comments refill request 05/03/2017 Encounter Details Date Type Department Care Team Description 05/03/2017 Refill Adult Medicine [address] [address] Misa Ferro MD refill request Social History Tobacco Use Types Packs/Day Years Used Date Smoking Tobacco: Never Alcohol Use Standard Drinks/Week Comments No 0 (1 standard drink = 0.6 oz pur e alcohol) Sex Assigned at Date Recorded Not on file Job Start Date Occupation Industry Not on file Not on file Not on file documented as of this encounter Miscellaneous Notes * Telephone Encounter - Christal Sloan M.A. - 05/03/2017 1:08 PM EDT Faxed to pharmacy * Telephone Encounter - Nestor Thompson M.A. - 05/03/2017 1:07 PM EDT Faxed to pharmacy * Telephone Encounter - Pat Sr - 05/03/2017 11:01 AM EDT Lab Results Component Value Date CHOL 151 04/17/2017 LDL 79 04/17/2017 HDL 49 04/17/2017 TRIG 116 04/17/2017 * Telephone Encounter - Deborah Zheng - 05/03/2017 10:51 AM EDT Patient would like script to be: E-PRESCRIBED/FAXED TO PHARMACY WHEN WAS THE PATIENT'S LAST APPOINTMENT IN ADULT MEDICINE? 04/17/17 WHEN WAS THE LAST TIME THE PATIENT SAW THEIR PCP? Has not seen PCp Does patient have an upcoming appointment? Yes 08/17/17 (THE MEDICATION REQUESTED IS ON THE MED LIST ABOVE) All of the medications requested were on the CURRENT MEDS list Did you check the Pharmacy information above?: YES Patient wants: 30 -day supply Is this a mail order prescription request ? NO Patients current insurance carrier is: [place] / [place] / Product Type: MEDICARE [id number] documented in this encounter Plan of Treatment Not on file documented as of this encounter Visit Diagnoses Not on filedocumented in this encounter Care Teams Aircraft Pneudraulic Systems Mechanic Relationship Specialty Start Date End Date Misa Ferro MD PCP - General Internal Medicine 03/06/17 02/17/21 Luis Goff DO PCP - General Internal Medicine 02/18/21 Zack Cintron MD [address] [place] [id number] PCP - General Internal Medicine 07/09/21 06/06/22 Michelle Bettencourt MD [address] [place] [id number] PCP - General Internal Medicine 06/07/22 06/23/22 [facility], Pcp [address] [place] [id number] PCP - General Internal Medicine 06/24/22 documented as of this encounter
--- OUTSIDE RECORDS SUMMARY | 2024-11-28 06:11 | XMS_ITS | Encounter Summary ---
Author Organization [facility] Address [address] [place] [address] Care Team Providers Care Technical Writer Name Role Phone Michelle Bettencourt MD Primary Care Prov ider [facility], Pcp Primary Care Provider Unavailabl e Reason for Visit * Reason Comments E-prescribe Rx Request Encounter Details Date Type Department Care Team Description 06/07/2022 Refill Adult Medicine [address] [address] Key Zuniga PA E-prescribe Rx Request Social History Tobacco Use Types Packs/Day Years [...] encounter Miscellaneous Notes * Telephone Encounter - Radha Willams M.A. - 06/08/2022 4:42 PM EDT Lab Results Component Value Date CHOL 171 12/06/2021 LDL 96 12/06/2021 HDL 51 12/06/2021 TRIG 123 12/06/2021 SGOT 35 12/06/2021 SGPT 34 12/06/2021 SMITH w/Kaya Esquivel 12/27/2021 SMITH w/PCP not on file Next OV w/Hillary Penny 06/29/2022 Netx OV w/PCP 10/19/2022 Pls review in Kaya Esquivel's absence, thank you. * Telephone Encounter - Kevmary Contrerasleher - 06/08/2022 8:25 AM EDT Patient would like script to be: E-PRESCRIBED/FAXED TO PHARMACY WHEN WAS THE PATIENT'S LAST APPOINTMENT IN ADULT MEDICINE? 12/27/2021 WHEN WAS THE LAST TIME THE PATIENT SAW THEIR PCP? 02/18/2021 Does patient have an upcoming appointment? Yes 06/29/2022 (THE MEDICATION REQUESTED IS ON THE MED LIST ABOVE) All of the medications requested were on the CURRENT MEDS list Did you check the Pharmacy information above?: YES Patient wants: 30 -day supply Is this a mail order prescription request ? NO If the refill is from a FAXED refill request what is the RX # listed on the fax? N/A Patients current insurance carrier is: [place] / [place] / Product Type: MEDICARE [id number] documented in this encounter Plan of Treatment Not on file documented as of this encounter Visit Diagnoses Not on filedocumented in this encounter Care Teams Technical Writer Relationship Specialty Start Date End Date Michelle Bettencourt MD [address] [place] [phone] PCP - General Internal Medicine 06/07/22 06/23/[address] [address] PCP - General Internal Medicine 06/24/22 documented as of this encounter
--- OUTSIDE RECORDS SUMMARY | 2024-11-28 06:11 | XMS_ITS | Encounter Summary ---
Author Organization Formerly [facility] Address [address] [place] [address] Care Team Providers Care Laboratory Scientist Name Role Phone Misa Ferro MD Primary Care Provider Unava Luis Gordon DO Primary Care Provider Kimberly vailable Zack Cintron MD Primary Care Provider [phone] Michelle Bettencourt MD Primary Care Prov ider Pending [facility] Pcp Primary Care Provider Unavailabl e Encounter Details Date Type Department Care Team Description 09/04/2013 Hospital Medical Records [address] [place] [id number] Naeem Choudhury MD Social History Tobacco Use Types Packs/Day Years [...] on filedocumented in this encounter Care Teams Laboratory Scientist Relationship Specialty Start Date End Date Misa Ferro MD PCP - General Internal Medicine 03/06/17 02/17/21 Luis Goff DO PCP - General Internal Medicine 02/18/21 Zack Cintron MD [address] [place] [address] [id number] PCP - General Internal Medicine 07/09/21 06/06/22 Michelle Bettencourt MD [address] [place] [address] PCP - General Internal Medicine 06/07/22 06/23/22 [facility], Pcp [address] [place] [address] PCP - General Internal Medicine 06/24/22 documented as of this encounter
--- OUTSIDE RECORDS SUMMARY | 2024-11-28 06:11 | XMS_ITS | Encounter Summary ---
Author Organization [facility] Address [address] [place] [address] Care Team Providers Care Testing Director Name Role Phone Misa Ferro MD Primary Care Provider UnaLuis Rivera DO Primary Care Provider Kimberly esailaZack Sam MD Primary Care Provider [phone] Michelle Bettencourt MD Primary Care Prov ider [facility], Pcp Primary Care Provider Unavailabl e Encounter Details Date Type Department Care Team Description 11/11/2019 Hospital Medical Records [address] [place] [address] Social History Tobacco Use Types Packs/Day Years [...] on filedocumented in this encounter Care Teams Testing Director Relationship Specialty Start Date End Date Misa Ferro MD PCP - General Internal Medicine 03/06/17 02/17/21 Luis Goff DO PCP - General Internal Medicine 02/18/21 Zack Cintron MD [address] [place] [address] PCP - General Internal Medicine 07/09/21 06/06/22 Michelle Bettencourt MD [address] [place] [address] PCP - General Internal Medicine 06/07/22 06/23/22 [facility], Pcp [address] [place] [address] PCP - General Internal Medicine 06/24/22 documented as of this encounter
--- OUTSIDE RECORDS SUMMARY | 2024-11-28 06:11 | XMS_ITS | Encounter Summary ---
Author Organization [facility] Address [address] [place] [address] Care Team Providers Care Facility Maintenance Worker Name Role Phone Misa Ferro MD Primary Care Provider UnaLuis Rivera DO Primary Care Provider Kimberly vailable Zack Cintron MD Primary Care Provider [phone] Michelle Bettencourt MD Primary Care Prov ider [facility] Pcp Primary Care Provider Unavailabl e Encounter Details Date Type Department Care Team Description 11/19/2020 Orders Only Radiology - [address] [id number] Misa Ferro MD Social History Tobacco Use Types Packs/Day [...] on filedocumented in this encounter Care Teams Facility Maintenance Worker Relationship Specialty Start Date End Date Misa Ferro MD PCP - General Internal Medicine 03/06/17 02/17/21 Luis Goff DO PCP - General Internal Medicine 02/18/21 Zack Cintron MD [address] [place] [address] PCP - General Internal Medicine 07/09/21 06/06/22 Michelle Bettencourt MD [address] [place] [address] PCP - General Internal Medicine 06/07/22 06/23/22 [facility], Pcp [address] [place] [address] PCP - General Internal Medicine 06/24/22 documented as of this encounter
--- OUTSIDE RECORDS SUMMARY | 2024-11-28 06:11 | XMS_ITS | Encounter Summary ---
Author Organization [facility] Address [address] [place] [address] Care Team Providers Care Director Experimental Medicine Name Role Phone Misa Ferro MD Primary Care Provider UnaLuis Rivera DO Primary Care Provider Kimberly Zack Otero MD Primary Care Provider [phone] Michelle Bettencourt MD Primary Care Prov ider [facility] Pcp Primary Care Provider Unavailabl e Encounter Details Date Type Department Care Team Description 09/08/2017 Business Doc Medical Records [address] [place] [id number] Abstract, Provider Social History Tobacco Use Types Packs/Day Years [...] on filedocumented in this encounter Care Teams Director Experimental Medicine Relationship Specialty Start Date End Date Misa Ferro MD PCP - General Internal Medicine 03/06/17 02/17/21 Luis Goff DO PCP - General Internal Medicine 02/18/21 Zack Cintron MD [address] [place] [address] [phone] PCP - General Internal Medicine 07/09/21 06/06/22 Michelle Bettencourt MD [address] [place] [address] PCP - General Internal Medicine 06/07/22 06/23/22 [facility], Pcp [address] [place] [phone] PCP - General Internal Medicine 06/24/22 documented as of this encounter
--- OUTSIDE RECORDS SUMMARY | 2024-11-28 06:11 | XMS_ITS | Encounter Summary ---
Author Organization [facility] Address [address] [place] [address] Care Team Providers Care Skein Washer Name Role Phone Misa Ferro MD Primary Care Provider UnaLuis Rivera DO Primary Care Provider Kimberly vailable Zack Cintron MD Primary Care Provider [phone] Michelle Bettencourt MD Primary Care Prov ider [facility], Pcp Primary Care Provider Unavailabl e Encounter Details Date Type Department Care Team Description 04/19/2017 Release of Information Medical Records [address] [place] [id number] Abstract, Provider Social History Tobacco Use Types [...] on filedocumented in this encounter Care Teams Skein Washer Relationship Specialty Start Date End Date Misa Ferro MD PCP - General Internal Medicine 03/06/17 02/17/21 Luis Goff DO PCP - General Internal Medicine 02/18/21 Zack Cintron MD [address] [place] [address] [phone] PCP - General Internal Medicine 07/09/21 06/06/22 Michelle Bettencourt MD [address] [place] [address] PCP - General Internal Medicine 06/07/22 06/23/22 [facility], Pcp [address] [place] [phone] PCP - General Internal Medicine 06/24/22 documented as of this encounter
--- OUTSIDE RECORDS SUMMARY | 2024-11-28 06:11 | XMS_ITS | Encounter Summary ---
Author Organization [facility] Address [address] [place] [address] Care Team Providers Care Leather Sorter Name Role Phone Misa Ferro MD Primary Care Provider UnaLuis Rivera DO Primary Care Provider Kimberly Zack Otero MD Primary Care Provider [phone] Michelle Bettencourt MD Primary Care Prov ider [facility] Pcp Primary Care Provider Unavailabl e Encounter Details Date Type Department Care Team Description 04/03/2020 Business Doc Medical Records [address] [place] [id number] Abstract, Provider Social History Tobacco Use Types [...] on filedocumented in this encounter Care Teams Leather Sorter Relationship Specialty Start Date End Date Misa Ferro MD PCP - General Internal Medicine 03/06/17 02/17/21 Luis Goff DO PCP - General Internal Medicine 02/18/21 Zack Cintron MD [address] [place] [address] [phone] PCP - General Internal Medicine 07/09/21 06/06/22 Michelle Bettencourt MD [address] [place] [address] PCP - General Internal Medicine 06/07/22 06/23/22 [facility], Pcp [address] [place] [address] PCP - General Internal Medicine 06/24/22 documented as of this encounter
--- OUTSIDE RECORDS SUMMARY | 2024-11-28 06:11 | XMS_ITS | Encounter Summary ---
Author Organization [facility] Address [address] [place] [address] Care Team Providers Care Lapel Stitcher Name Role Phone Misa Ferro MD Primary Care Provider Unava Luis Gordon DO Primary Care Provider Kimberly Zack Otero MD Primary Care Provider [phone] Michelle Bettencourt MD Primary Care Prov ider [facility], Pcp Primary Care Provider Unavailabl e Reason for Visit * Reason Onset Date Comments REFERRAL 08/29/2019 Encounter Details Date Type Department Care Team Description 08/29/2019 Telephone OBGYN - [address] [address] Nayana Hartley MD [address] [address] REFERRAL Social History Tobacco Use Types Packs/Day Years [...] encounter Miscellaneous Notes * Telephone Encounter - Latosha Pepper - 08/29/2019 3:20 PM EST Lmom for pt to call * Telephone Encounter - FISH Crawford, RN - 08/29/2019 3:13 PM EST Please book next available any site MD only thank you * Telephone Encounter - Latosha Pepper - 08/29/2019 3:06 PM EST Chief Complaint/problem: Referral rec'd for: Reason for referral: prolapse? - I feel like something is falling out . Denies urinary incontinence. Also wants breast exam. Normal mammo -pt will be new to endoscopy nurse How long has the patient had this problem? Pt???s QUANTITATIVE STRATEGY ANALYST provider: Nayana Hartley M.D. Last menstrual period (LMP) or EDC (due date): N/A documented in this encounter Plan of Treatment Not on file documented as of this encounter Visit Diagnoses Not on filedocumented in this encounter Care Teams Lapel Stitcher Relationship Specialty Start Date End Date Misa Ferro MD PCP - General Internal Medicine 03/06/17 02/17/21 Luis Goff DO PCP - General Internal Medicine 02/18/21 Zack Cintron MD [address] [place], [place] [phone] PCP - General Internal Medicine 07/09/21 06/06/22 Michelle Bettencourt MD [address] [place] [address] PCP - General Internal Medicine 06/07/22 06/23/22 [facility], Pcp [address] [place], [place] [phone] PCP - General Internal Medicine 06/24/22 documented as of this encounter
--- OUTSIDE RECORDS SUMMARY | 2024-11-28 06:11 | XMS_ITS | Encounter Summary ---
Author Organization [facility] Address [address] [place] [address] Care Team Providers Care Supervisor Cold Rolling Name Role Phone Misa Ferro MD Primary Care Provider Unava Luis Gordon DO Primary Care Provider Kimberly Zack Otero MD Primary Care Provider Michelle Bettencourt MD Primary Care Prov ider [facility], Pcp Primary Care Provider Unavailabl e Encounter Details Date Type Department Care Team Description 09/30/2019 Release of Information Medical Records [address] [place] [phone] Abstract, Provider Social History Tobacco Use Types Packs/Day Years Used Date Smoking Tobacco: Never Smokeless Tobacco: Never Alcohol Use Standard Drinks/Week Comments No 0 (1 standard drink = 0.6 oz pur e alcohol) Sex Assigned at Date Recorded Not on file Job Start Date Occupation Industry Not on file Not on file Not on file documented as of this encounter Nursing Notes * Jade Martínez - 09/30/2019 1:39 PM EST AUTHORIZATION TO OBTAIN RECORDS FAXED TO [facility]AT[facility]ODALL. documented in this encounter Plan of Treatment Not on file documented as of this encounter Visit Diagnoses Not on filedocumented in this encounter Care Teams Supervisor Cold Rolling Relationship Specialty Start Date End Date Misa Ferro MD PCP - General Internal Medicine 03/06/17 02/17/21 Luis Goff DO PCP - General Internal Medicine 02/18/21 Zack Cintron MD [address] [place] [phone] PCP - General Internal Medicine 07/09/21 06/06/22 Michelle Bettencourt MD [address] [place] [address] PCP - General Internal Medicine 06/07/22 06/23/22 [facility], Pcp [address] [place] [address] PCP - General Internal Medicine 06/24/22 documented as of this encounter
== END 2024-11-28 06:08 | disposition home or self-care (01) ==
LOC: CF 06:07
PROVIDERS: Visit Provider Internal Medicine
DX: M48.02 Spinal stenosis, cervical region (principal); M54.12 Radiculopathy, cervical region
CPT/HCPCS: 62321; J1100; J2003; Q9967

== ENCOUNTER 2024-11-28 09:23 | Outpatient (AMB) | payer MEDICARE, SELFPAY ==
[2024-11-28 09:43] VITALS: BP 127/66; PULSE 86; RESP 16; O2SAT 99
--- NOTE | 2024-11-28 09:43 | A.OFFVIS_ITS ---
Vital Signs 11/28/24 09:43 11/28/24 10:29 BP 127/66 122/82 Blood Pressure Location Lt brachial Lt brachial Position Sitting Sitting Respiration 16 16 Pulse 86 84 Pulse Source Pulse Oximeter Pulse Oximeter Pulse Oximetry (%) 99 98 Oxygen Delivery Method Room Air Room Air Intake Visit Reasons: Right C6-C7 parasagittal interlaminar IRAIS Stitcher Set Up Operator Automatic Required: No Allergies lisinopril Adverse Reaction (Intermediate, Verified 11/28/24 09:43) cough tizanidine Adverse Reaction (Intermediate, Verified 11/28/24 09:43) Nightmare Medication List - Last Reconciled 11/28/24 by Vivian Jane LPN acetaminophen ER (Tylenol Arthritis Pain) 650 mg PO Q12H atorvastatin 40 mg PO DAILY cholecalciferol (vitamin D3) 50 mcg (2 x 25 mcg (1,000 unit)) PO DAILY cyclosporine 0.05% (Restasis) drps ophthalmic (eye) docusate sodium (Dulcolax Stool Softener (docusate)) 100 mg PO BID 30 days magnesium glycinate 200 mg (2 x 100 mg) PO DAILY 30 days bycuxzbq-koo-dfsr-FA-lutein (Centrum Silver Women) PO naloxone 4 mg/actuation (Narcan) 4 mg intranasal Q2M PRN olmesartan 20 mg PO DAILY omeprazole 20 mg PO DAILY tramadol 50 mg PO BID PRN 15 days PFSH Medical History GERD (gastroesophageal reflux disease) Vitamin D deficiency Hypertension Surgical History S/P cataract extraction Family History Father Hypertension Mother Breast cancer Diabetes Sister Diabetes Social History Household Members Other:: , from [place], 2 sons (one from COVID), Housing: House Patient Tobacco Use Status: Never used Tobacco e-Cigarette/Vaping Use: Never Used Current occupational status: retired Cognitive needs: No Hearing needs: No Vision needs: Yes Physical Exam Vital Signs: Last Vital Signs Pulse 84 11/28/24 10:29 Resp 16 11/28/24 10:29 BP 122/82 11/28/24 10:29 Pulse Ox 98 11/28/24 10:29 Oxygen Delivery Method Room Air 11/28/24 10:29 Office Procedures AMB Joint Injection/Aspiration Joint Injection/Aspiration Details: Interlaminar epidural steroid injection, C6/7, Left parasaggital After obtaining written consent, pre-procedure blood pressure and heart rate were stable and recorded in the nursing record. The patient was placed in the prone position. The cervical area was widely prepped with chloraprep and draped in sterile fashion. Fluoroscopic guidance was used to identify the desired interlaminar space and for needle placement. The left parasagittal position was chosen for ease of epidural access. Subcutaneous 0.5% lidocaine was used to anesthetize the skin overlying the target. A 20-gauge Rae needle was advanced to the epidural space using loss of resistance to contrast technique under fluoroscopic AP and contralateral oblique views. There was no evidence of heme or CSF and no paresthesias were elicited with needle placement. Confirmation of epidural needle placement was performed with 1cc of omnipaque 180. Contrast spread was confirmed on both sides. Next 3 ml 0.5% lidocaine mixed with dexamethasone 10 mg was administered epidurally with no pain elicited on injection. The needle tract tubing was then cleared with 1 ml of 0.5% lidocaine. The needle was removed, skin cleansed and a sterile bandage was applied. The patient tolerated the procedure well and no complications were encountered. Following the procedure the patient's vital signs were stable. The patient was discharged home in good condition with post-procedural instructions. Time Out: Immediately prior to the procedure, the following was verbally confirmed that there is a signed consent form and that the correct patient, planned procedure, site and side are consistent with documentation and that necessary equipment and/or blood products are available prior to the start of the case. Complications: none EBL: <2 cc Coding 98130 - Cervical Epidural/Interlaminar with fluoroscopy Procedure code (CPT) selection complete Assessment & Plan Assessment & Plan (1) Cervical radicular pain: Code(s): M54.12 - Radiculopathy, cervical region Category: Medical Plan Patient is status post C6-7 interlaminar IRAIS. Patient tolerated procedure well and was discharged home in stable condition with discharge instructions. All questions were answered. We will follow-up via telephone or in clinic to assess response to therapy. A follow-up appointment was made during today's visit. Orders: Orders FL guidance in treatment room Today M48.02 - Spinal stenosis, cervical region Coding Level of Care Code Procedure Only Diagnoses Cervical radicular pain M54.12 CPT Codes Coding - Joint 10: 87420 - Cervical Epidural/Interlaminar with fluoroscopy ([id number])
[2024-11-28 10:29] VITALS: BP 122/82; PULSE 84; RESP 16; O2SAT 98
== END 2024-11-28 10:32 | disposition home or self-care (01) ==
LOC: HO.PMCPRC 09:23
PROVIDERS: PCP Internal Medicine; Visit Provider Internal Medicine
DX: M54.12 Radiculopathy, cervical region (principal)
CPT/HCPCS: 62321

== ENCOUNTER 2024-12-16 12:33 | Outpatient (AMB) | payer MEDICARE, SELFPAY ==
--- NOTE | 2024-12-16 12:44 | MHC.OFFVIS ---
Vital Signs 12/16/24 12:45 Height 5 ft 3 in Weight 130 lb BMI 23.0 Intake Visit Reasons: Right shoulder pain and weakness Intake Note: Wendi is a 79 year old right hand dominant female who presents with complaints of progressively worsening right shoulder pain and weakness. The patient states that several months ago she slipped and fell directly onto her right arm. Since that time she has had difficulty lifting her right hand above shoulder height. She has failed the last 6 weeks of conservative treatment which has included a home exercise program, physical therapy exercises, Tylenol and anti-inflammatory medicines. Allergies lisinopril Adverse Reaction (Intermediate, Verified 12/16/24 12:45) cough tizanidine Adverse Reaction (Intermediate, Verified 12/16/24 12:45) Nightmare Medication List - Last Reconciled 12/16/24 by Chin Griffin MD acetaminophen ER (Tylenol Arthritis Pain) 650 mg PO Q12H atorvastatin 40 mg PO DAILY cholecalciferol (vitamin D3) 50 mcg (2 x 25 mcg (1,000 unit)) PO DAILY cyclosporine 0.05% (Restasis) drps ophthalmic (eye) docusate sodium (Dulcolax Stool Softener (docusate)) 100 mg PO BID 30 days magnesium glycinate 200 mg (2 x 100 mg) PO DAILY 30 days lziqlfuz-crq-bbaj-FA-lutein (Centrum Silver Women) PO naloxone 4 mg/actuation (Narcan) 4 mg intranasal Q2M PRN olmesartan 20 mg PO DAILY omeprazole 20 mg PO DAILY tramadol 50 mg PO BID PRN 15 days PFSH Medical History GERD (gastroesophageal reflux disease) Vitamin D deficiency Hypertension Surgical History S/P cataract extraction Family History Father Hypertension Mother Breast cancer Diabetes Sister Diabetes Social History Household Members Other:: , from [place], 2 sons (one from COVID), Housing: House Patient Tobacco Use Status: Never used Tobacco e-Cigarette/Vaping Use: Never Used Current occupational status: retired Cognitive needs: No Hearing needs: No Vision needs: Yes Physical Exam Vital Signs: BMI result Body Mass Index 23.0 Const Other: Well-nourished well-developed very friendly female awake alert and oriented x3 in no acute distress Extrem Other: Bilateral upper extremity examination shows good capillary refill, no skin lesions noted, normal sensation light touch Right shoulder examination shows decreased range of motion when compared to her left shoulder, 4/5 strength with supraspinatus testing, positive impingement signs, tenderness over her acromioclavicular joint, no instability Results Reviewed Results Reviewed: X-rays of the patient's right shoulder show severe acromioclavicular joint narrowing, a type 2 acromion, no acute bony abnormalities Assessment & Plan Assessment & Plan (1) Rotator cuff insufficiency of right shoulder: Code(s): M25.311 - Other instability, right shoulder Category: Medical Plan Ms. Griffith presents with right shoulder pain and weakness most likely due to a full-thickness rotator cuff tear. Thus, I will send the patient for an MRI of her right shoulder for further evaluation. I will see her back once the MRI is completed to discuss the findings and treatment options. Feel free to call me at any time should questions regarding her orthopedic management arise. Thank you very much for asking me to see this very friendly patient. I spent 21 minutes in reviewing the patient's records and imaging studies, seeing the patient and documenting in the medical record. Orders: Orders MR shoulder RT wo con Today M25.311 - Other instability, right shoulder Medications: New meloxicam 15 mg PO DAILY PRN 30 tabs 3RF pain Coding Level of Care Code New Pt Level 3 (04282) Complex EM visit Add On G2211 Diagnoses Rotator cuff insufficiency of right shoulder M25.311
[2024-12-16 12:45] VITALS: BMI 23.0
--- OUTSIDE RECORDS SUMMARY | 2024-12-16 14:11 | XMS_ITS | Clinical Summary ---
Author Organization [facility] Address [address] [place] [address] Care Team Providers Care Non Food Receiving Clerk Name Role Phone Community, Pcp Primary Care Provider Unavailabl e Allergies Active Allergy Reactions Severity Noted Date Comments Lisinopril Cough 07/10/2018 Naproxen 06/30/2017 Medications Medication Sig Dispensed Refills Start Date End Date Status Probiotic Product (PRO-BIOTIC BLEND) Cap Take 1 Cap by mouth daily. 0 Active Multiple Vitamins-Minerals (MULTIVITAMIN ADULTS 50+) Tab Take by mouth daily. 0 Active Cyanocobalamin (VITAMIN B 12 OR) Take by mouth daily. 0 Active acetaminophen (TYLENOL) 650 MG CR tablet Take 1 tablet by mouth every 8 hours as needed for Pain. 100 tablet 3 11/24/2021 Active omeprazole (PRILOSEC) 20 MG capsule Take 1 capsule by mouth daily. 90 capsule 1 11/24/2021 Active valsartan (DIOVAN) 80 MG tablet Take 1 tablet by mouth daily. 30 tablet 1 11/24/2021 Active atorvastatin (LIPITOR) 40 MG tablet Take 1 tablet by mouth once daily 90 Tablet 1 06/08/2022 Active Active Problems Problem Noted Date Pre-diabetes 11/24/2021 Lumbosacral spondylosis with radiculopat hy 06/16/2021 Adenoma of left adrenal gland 03/15/2021 Cervical spondylosis with radiculopathy 09/08/2020 Hand arthritis 08/29/2019 Essential hypertension 02/15/2018 Impaired fasting glucose 07/03/2017 Rectocele 07/03/2017 Overview: 1st degree Osteoarthritis 06/30/2017 Overview: Hands Internal hemorrhoids 06/30/2017 Hyperlipemia GERD (gastroesophageal reflux disease) Overview: H/O H.pylori (treated 2011) & Gastroparesis.Dr. Weathers Seasonal allergies Immunizations Name Administration Dates Next Due COVID-19 (Pfizer) 11/11/2020,10/21/2020 COVID-19 (Pfizer) Pt Reported 07/15/2021, 021,10/21/2020 Flu Vaccine 3 Yrs> Im 06/24/2013 Influenza (> 6 Months) 07/22/2016,2013,06/24/2013, 012,06/16/2010 Influenza vaccine high dose age 65 and over 05/12/2020,07/05/2019,06/29/2018, 017,07/22/2016,07/01/2015,07/04/2014,,06/16/2010 Pneumovax Adult(PT Reported) 01/21/2015,01/18/20 11,01/18/2010 Shingrix (Patient reported) 02/26/2020 Shingrix (Recombinant zoster vaccine) 03/11/2020,02/26/2020,11/18/2019 TD (STATE SUPPLIED FOR ADULT S AND CHILDREN) 11/24/2021 Tdap 07/20/2011 Zostavax 07/31/2012 Family History Medical History Relation Name Comments Diabetes Brother Throat Cancer Father + smoker CA Breast Mother dx 60s Diabetes Diabetes Sister Relation Name Status Comments Brother Alive Father (Age 90) Mother dx 60s (Age 82) Sister Social History Tobacco Use Types Packs/Day Years Used Date Smoking Tobacco: Never Smokeless Tobacco: Never Alcohol Use Standard Drinks/Week Comments No 0 (1 standard drink = 0.6 oz pur e alcohol) Sex Assigned at Date Recorded Not on file Job Start Date Occupation Industry Not on file Not on file Not on file Last Filed Vital Signs Vital Sign Reading Time Taken Comments Blood Pressure 116/76 12/27/2021 8:29 AM EDT Pulse 78 12/27/2021 8:29 AM EDT Temperature 36.6 ??C (97.8 ??F) 12/27/2021 8:29 AM ED T Respiratory Rate 14 12/27/2021 8:29 AM EDT Oxygen Saturation 98% 05/25/2021 8:42 AM EDT Inhaled Oxygen Concentration - - Weight 65.3 kg (144 lb) 12/27/2021 8:29 AM EDT Height 160 cm (5' 3 ) 12/27/2021 8:29 AM EDT Body Mass Index 25.51 12/27/2021 8:29 AM EDT Plan of Treatment Health Maintenance Due Date Last Done Comments FALL RISK ASSESSMENT 02/18/2022 02/18/2021, 10/10/2018, 08/17/2017 DEPRESSION SCREEN 04/13/2022 04/13/2021, , 08/17/2017 BONE DENSITY SCREENING 04/06/2023 , 09/06/2017, 12/30/2008 (External Completion) MAMMOGRAM 04/08/2023 04/08/2022, 03/19, 03/31/2020, Additional history exists Covid-19 Vaccine ( season) 2024 07/15/2021, 11/11/2020, 11/11/2020, Additional history exists INFLUENZA (#1) 2024 05/12/2020, 06/18, 06/29/2018, Additional history exists BMI CHECK/ADVISE 09/18/2024 05/25/2021, , 02/18/2021, Additional history exists CHOLESTEROL SCREENING 12/06/2026 12/06/2021 , 02/18/2021, 03/05/2020, Additional history exists DTAP/TDAP/TD (3 - Td or Tdap) 11/25/2031 11/24/2021, 07/20/2011 PNEUMOCOCCAL VACCINE Addressed 01/21/2015 (External Completion), 01/17/2011 (External Completion) Overridden with the intention of not completing the topic SHINGLES VACCINE Addressed 03/11/2020, 06/2020, 02/26/2020, Additional history exists Overridden with the intention of not completing the topic Care Teams Non Food Receiving Clerk Relationship Specialty Start Date End Date Community, Pcp PCP - General Internal Medicine 06/24/22
--- OUTSIDE RECORDS SUMMARY | 2024-12-16 14:11 | XMS_ITS | Encounter Summary ---
Author Organization [facility] Address [address] [place] [address] Care Team Providers Care Gas Maker Helper Name Role Phone Misa Ferro MD Primary Care Provider Unava Luis Gordon DO Primary Care Provider Kimberly Zack Otero MD Primary Care Provider [phone] Michelle Bettencourt MD Primary Care Prov ider [facility], Pcp Primary Care Provider Unavailabl e Reason for Visit * Reason Onset Date Comments Call-returning From Provider 10/01/2019 Encounter Details Date Type Department Care Team Description 10/01/2019 Telephone Adult Medicine [address] [address] Melanie Hunt PA-C [address] [place] [address] [phone] Call-returning From Provider Social History Tobacco Use Types Packs/Day [...] encounter Miscellaneous Notes * Telephone Encounter - Homero Aguilar M.A. - 10/01/2019 2:09 PM EST See result notes * Telephone Encounter - Melanie Hunt PA-C - 10/01/2019 1:55 PM EST Please see result note in regards to x-ray * Telephone Encounter - Barbie Verduzco - 10/01/2019 1:34 PM EST Pt returning call from Melanie Hunt regarding test results documented in this encounter Plan of Treatment Not on file documented as of this encounter Visit Diagnoses Not on filedocumented in this encounter Care Teams Gas Maker Helper Relationship Specialty Start Date End Date Misa Ferro MD PCP - General Internal Medicine 03/06/17 02/17/21 Luis Goff DO PCP - General Internal Medicine 02/18/21 Zack Cintron MD [address] [place] [address] PCP - General Internal Medicine 07/09/21 06/06/22 Michelle Bettencourt MD [address] [place] [address] PCP - General Internal Medicine 06/07/22 06/23/22 [facility], [place] [address] PCP - General Internal Medicine 06/24/22 documented as of this encounter
--- OUTSIDE RECORDS SUMMARY | 2024-12-16 14:11 | XMS_ITS | Encounter Summary ---
Author Organization [facility] Address [address] [place] [address] Care Team Providers Care Credit Reference Clerk Name Role Phone Misa Ferro MD Primary Care Provider Luis Lao DO Primary Care Provider Kimberly Zack Otero MD Primary Care Provider [phone] Michelle Bettencourt MD Primary Care Prov ider [facility] Pcp Primary Care Provider Unavailabl e Encounter Details Date Type Department Care Team Description 03/02/2020 Orders Only Internal Medicine - [address], [address] [place] [address] Dashawn Cross PA-C Social History Tobacco Use [...] on filedocumented in this encounter Care Teams Credit Reference Clerk Relationship Specialty Start Date End Date Misa Ferro MD PCP - General Internal Medicine 03/06/17 02/17/21 Luis Goff DO PCP - General Internal Medicine 02/18/21 Zack Cintron MD [address] [place] [address] PCP - General Internal Medicine 07/09/21 06/06/22 Michelle Bettencourt MD [address] [place] [address] PCP - General Internal Medicine 06/07/22 06/23/22 [facility], Pcp [address] [place] [address] PCP - General Internal Medicine 06/24/22 documented as of this encounter
--- OUTSIDE RECORDS SUMMARY | 2024-12-16 14:11 | XMS_ITS | Encounter Summary ---
Author Organization [facility] Address [address] [place] [address] Care Team Providers Care Steam Setter Name Role Phone Misa Ferro MD Primary Care Provider Luis Lao DO Primary Care Provider Kimberly Zack Otero MD Primary Care Provider [phone] Michelle Bettencourt MD Primary Care Prov ider [facility], Pcp Primary Care Provider Unavailabl e Encounter Details Date Type Department Care Team Description 09/06/2019 Release of Information Medical Records [address] [place] [id number] Abstract, Provider Social History Tobacco Use Types [...] encounter Nursing Notes * Jade Martínez - 09/06/2019 3:35 PM EST AUTHORIZATION TO OBTAIN RECORDS FAXED TO [facility]. documented in this encounter Plan of Treatment Not on file documented as of this encounter Visit Diagnoses Not on filedocumented in this encounter Care Teams Steam Setter Relationship Specialty Start Date End Date Misa Ferro MD PCP - General Internal Medicine 03/06/17 02/17/21 Luis Goff DO PCP - General Internal Medicine 02/18/21 Zack Cintron MD [address] [place] [address] PCP - General Internal Medicine 07/09/21 06/06/22 Michelle Bettencourt MD [address] [place] [address] PCP - General Internal Medicine 06/07/22 06/23/22 [facility], [address] [address] PCP - General Internal Medicine 06/24/22 documented as of this encounter
--- OUTSIDE RECORDS SUMMARY | 2024-12-16 14:11 | XMS_ITS | Encounter Summary ---
Author Organization [facility] Address [address] [place] [address] Care Team Providers Care Irrigation Technician Name Role Phone Misa Ferro MD Primary Care Provider UnaLuis Rivera DO Primary Care Provider Kimberly esailaZack Sam MD Primary Care Provider [phone] Michelle Bettencourt MD Primary Care Prov ider [facility], Pcp Primary Care Provider Unavailabl e Encounter Details Date Type Department Care Team Description 11/11/2019 Hospital Medical Records [address] [place] [address] Social History Tobacco Use Types Packs/Day Years [...] on filedocumented in this encounter Care Teams Irrigation Technician Relationship Specialty Start Date End Date Misa Ferro MD PCP - General Internal Medicine 03/06/17 02/17/21 Luis Goff DO PCP - General Internal Medicine 02/18/21 Zack Cintron MD [address] [place] [address] PCP - General Internal Medicine 07/09/21 06/06/22 Michelle Bettencourt MD [address] [place] [address] PCP - General Internal Medicine 06/07/22 06/23/22 [facility], Pcp [address] [place] [address] PCP - General Internal Medicine 06/24/22 documented as of this encounter
--- OUTSIDE RECORDS SUMMARY | 2024-12-16 14:11 | XMS_ITS | Encounter Summary ---
Author Organization [facility] Address [address] [place] [address] Care Team Providers Care Steward/Stewardess Dining Room Name Role Phone Misa Ferro MD Primary Care Provider UnaLuis Rivera DO Primary Care Provider Kimberly Zack Otero MD Primary Care Provider [phone] Michelle Bettencourt MD Primary Care Prov ider [facility] Pcp Primary Care Provider Unavailabl e Encounter Details Date Type Department Care Team Description 09/08/2017 Business Doc Medical Records [address] [place] [id number] Abstract, Provider Social History Tobacco Use Types [...] on filedocumented in this encounter Care Teams Steward/Stewardess Dining Room Relationship Specialty Start Date End Date Misa Ferro MD PCP - General Internal Medicine 03/06/17 02/17/21 Luis Goff DO PCP - General Internal Medicine 02/18/21 Zack Cintron MD [address] [place] [address] [phone] PCP - General Internal Medicine 07/09/21 06/06/22 Michelle Bettencourt MD [address] [place] [address] PCP - General Internal Medicine 06/07/22 06/23/22 [facility], Pcp [address] [place] [address] PCP - General Internal Medicine 06/24/22 documented as of this encounter
--- OUTSIDE RECORDS SUMMARY | 2024-12-16 14:11 | XMS_ITS | Encounter Summary ---
Author Organization [facility] Address [address] [place] [address] Care Team Providers Care Bill Collector Name Role Phone Misa Ferro MD Primary Care Provider Unava Luis Gordon DO Primary Care Provider Kimberly vailable Zack Cintron MD Primary Care Provider [phone] Michelle Bettencourt MD Primary Care Prov ider [facility] Pcp Primary Care Provider Unavailabl e Encounter Details Date Type Department Care Team Description 09/04/2013 Hospital Medical Records [address] [place] [address] Naeem Choudhury MD Social History Tobacco Use [...] on filedocumented in this encounter Care Teams Bill Collector Relationship Specialty Start Date End Date Misa Ferro MD PCP - General Internal Medicine 03/06/17 02/17/21 Luis Goff DO PCP - General Internal Medicine 02/18/21 Zack Cintron MD [address] [place] [address] [phone] PCP - General Internal Medicine 07/09/21 06/06/22 Michelle Bettencourt MD [address] [place] [address] PCP - General Internal Medicine 06/07/22 06/23/22 [facility], Pcp [address] [place] [address] PCP - General Internal Medicine 06/24/22 documented as of this encounter
--- OUTSIDE RECORDS SUMMARY | 2024-12-16 14:11 | XMS_ITS | Encounter Summary ---
Author Organization [facility] Address [address] [place] [address] Care Team Providers Care Regional Clinical Research Associate Name Role Phone Luis Goff DO Primary Care Provider Kimberly Zack Otero MD Primary Care Provider [phone] Michelle Bettencourt MD Primary Care Prov ider Count Includes [facility] Pcp Primary Care Provider Unavailabl e Encounter Details Date Type Department Care Team Description 05/03/2021 Order Packer Report Medical Records [address] [place] [address] Mundo Ryan DO Social History Tobacco Use Types Packs/Day Years Used Date Smoking Tobacco: Never Smokeless Tobacco: Never Alcohol Use Standard Drinks/Week Comments No 0 (1 standard drink = 0.6 oz pur e alcohol) Sex Assigned at Date Recorded Not on file Job Start Date Occupation Industry Not on file Not on file Not on file COVID-19 Exposure Response Date Recorded In the last month, have you been in contact with someone who was confirmed or suspected to have Coronavirus / COVID-19? No / Unsure 04/13/2021 2:05 PM EDT documented as of this encounter Plan of Treatment Not on file documented as of this encounter Visit Diagnoses Not on filedocumented in this encounter Care Teams Regional Clinical Research Associate Relationship Specialty Start Date End Date Luis Goff DO PCP - General Internal Medicine 02/18/21 Zack Cintron MD [address] [place], [place] [phone] PCP - General Internal Medicine 07/09/21 06/06/22 Michelle Bettencourt MD [address] [place] [address] PCP - General Internal Medicine 06/07/22 06/23/22 [facility], Pcp [address] [place] [address] PCP - General Internal Medicine 06/24/22 documented as of this encounter
--- OUTSIDE RECORDS SUMMARY | 2024-12-16 14:11 | XMS_ITS | Encounter Summary ---
Author Organization [facility] Address [address] [place] [address] Care Team Providers Care Scientific Database Curator Name Role Phone Misa Ferro MD Primary Care Provider Unava Luis Gordon DO Primary Care Provider Kimberly Zack Otero MD Primary Care Provider [phone] Michelle Bettencourt MD Primary Care Prov ider [facility], Pcp Primary Care Provider Unavailabl e Reason for Visit * Reason Onset Date Comments REFERRAL 08/29/2019 Encounter Details Date Type Department Care Team Description 08/29/2019 Telephone OBGYN - [address] [address] Nayana Hartley MD [address] [address] REFERRAL Social History Tobacco Use Types Packs/Day [...] Normal mammo -pt will be new to metrologist How long has the patient had this problem? Pt???s TRASH COLLECTOR provider: Nayana Hartley M.D. Last menstrual period (LMP) or EDC (due date): N/A documented in this encounter Plan of Treatment Not on file documented as of this encounter Visit Diagnoses Not on filedocumented in this encounter Care Teams Scientific Database Curator Relationship Specialty Start Date End Date Misa Ferro MD PCP - General Internal Medicine 03/06/17 02/17/21 Luis Goff DO PCP - General Internal Medicine 02/18/21 Zack Cintron MD [address] [place], [place] [phone] PCP - General Internal Medicine 07/09/21 06/06/22 Michelle Bettencourt MD [address] [place] [address] PCP - General Internal Medicine 06/07/22 06/23/22 [facility], Pcp [address] [place], [place] [phone] PCP - General Internal Medicine 06/24/22 documented as of this encounter
--- OUTSIDE RECORDS SUMMARY | 2024-12-16 14:11 | XMS_ITS | Encounter Summary ---
Author Organization [facility] Address [address] [place] [address] Care Team Providers Care Associate Entertainment Editor Name Role Phone Misa Ferro MD Primary Care Provider UnaLuis Rivera DO Primary Care Provider Kimberly vailable Zack Cintron MD Primary Care Provider [phone] Michelle Bettencourt MD Primary Care Prov ider [facility] Pcp Primary Care Provider Unavailabl e Encounter Details Date Type Department Care Team Description 11/19/2020 Orders Only Radiology - [address] [id number] Misa Ferro MD Social History Tobacco Use [...] on filedocumented in this encounter Care Teams Associate Entertainment Editor Relationship Specialty Start Date End Date Misa Ferro MD PCP - General Internal Medicine 03/06/17 02/17/21 Luis Goff DO PCP - General Internal Medicine 02/18/21 Zack Cintron MD [address] [place] [address] PCP - General Internal Medicine 07/09/21 06/06/22 Michelle Bettencourt MD [address] [place] [address] PCP - General Internal Medicine 06/07/22 06/23/22 [facility], Pcp [address] [place] [address] PCP - General Internal Medicine 06/24/22 documented as of this encounter
--- OUTSIDE RECORDS SUMMARY | 2024-12-16 14:11 | XMS_ITS | Encounter Summary ---
Author Organization [facility] Address [address] [place] [address] Care Team Providers Care Staple Laster Name Role Phone Misa Ferro MD Primary Care Provider Unava Luis Gordon DO Primary Care Provider Kimberly Zack Otero MD Primary Care Provider [phone] Michelle Bettencourt MD Primary Care Prov ider [facility], Pcp Primary Care Provider Unavailabl e Reason for Visit * Reason Onset Date Comments refill request 05/03/2017 Encounter Details Date Type Department Care Team Description 05/03/2017 Refill Adult Medicine [address] [address] Misa Ferro MD refill request Social History [...] / Plan: [place] / Product Type: MEDICARE [id number] documented in this encounter Plan of Treatment Not on file documented as of this encounter Visit Diagnoses Not on filedocumented in this encounter Care Teams Staple Laster Relationship Specialty Start Date End Date Misa Ferro MD PCP - General Internal Medicine 03/06/17 02/17/21 Luis Goff DO PCP - General Internal Medicine 02/18/21 Zack Cintron MD [address] [place] [address] PCP - General Internal Medicine 07/09/21 06/06/22 Michelle Bettencourt MD [address] [place] [address] PCP - General Internal Medicine 06/07/22 06/23/22 [facility], Pcp [address] [place] [address] PCP - General Internal Medicine 06/24/22 documented as of this encounter
--- OUTSIDE RECORDS SUMMARY | 2024-12-16 14:11 | XMS_ITS | Encounter Summary ---
Author Organization [facility] Address [address] [place] [address] Care Team Providers Care Professor Of Environmental Engineering Name Role Phone Luis Goff DO Primary Care Provider Kimberly Zack Otero MD Primary Care Provider [phone] Michelle Bettencourt MD Primary Care Prov ider [facility], Pcp Primary Care Provider Unavailabl e Encounter Details Date Type Department Care Team Description 04/07/2021 Business Doc Medical Records [address] [place] [address] Abstract, Provider Social History Tobacco Use Types [...] have Coronavirus / COVID-19? No / Unsure 04/06/2021 8:34 AM EDT documented as of this encounter Plan of Treatment Not on file documented as of this encounter Visit Diagnoses Not on filedocumented in this encounter Care Teams Professor Of Environmental Engineering Relationship Specialty Start Date End Date Luis Goff DO PCP - General Internal Medicine 02/18/21 Zack Cintron MD [address] [place] [address] PCP - General Internal Medicine 07/09/21 06/06/22 Michelle Bettencourt MD [address] [place] [address] PCP - General Internal Medicine 06/07/22 06/23/22 [facility], Pcp [address] [place] [address] PCP - General Internal Medicine 06/24/22 documented as of this encounter
--- OUTSIDE RECORDS SUMMARY | 2024-12-16 14:11 | XMS_ITS | Encounter Summary ---
Author Organization [facility] Address [address] [place] [address] Care Team Providers Care Golf Sales Manager Name Role Phone Misa Ferro MD Primary Care Provider UnaLuis Rivera DO Primary Care Provider Kimberly Zack Otero MD Primary Care Provider [phone] Michelle Bettencourt MD Primary Care Prov ider [facility] Pcp Primary Care Provider Unavailabl e Encounter Details Date Type Department Care Team Description 03/04/2019 Business Doc Medical Records [address] [place] [id number] Abstract, Provider Social History Tobacco Use Types [...] on filedocumented in this encounter Care Teams Golf Sales Manager Relationship Specialty Start Date End Date Misa Ferro MD PCP - General Internal Medicine 03/06/17 02/17/21 Luis Goff DO PCP - General Internal Medicine 02/18/21 Zack Cintron MD [address] [place] [address] [phone] PCP - General Internal Medicine 07/09/21 06/06/22 Michelle Bettencourt MD [address] [place] [address] PCP - General Internal Medicine 06/07/22 06/23/22 [facility], Pcp [address] [place] [address] PCP - General Internal Medicine 06/24/22 documented as of this encounter
--- OUTSIDE RECORDS SUMMARY | 2024-12-16 14:11 | XMS_ITS | Encounter Summary ---
Author Organization [facility] Address [address] [place] [address] Care Team Providers Care Front End Developer Javascript Html Css Name Role Phone Luis Goff DO Primary Care Provider Kimberly Zack Otero MD Primary Care Provider [phone] Michelle Bettencourt MD Primary Care Prov ider [facility], Pcp Primary Care Provider Unavailabl e Reason for Visit * Reason Onset Date Comments REFERRAL 04/06/2021 Encounter Details Date Type Department Care Team Description 04/06/2021 Telephone Adult [address] [address] Luis Goff DO REFERRAL Social History Tobacco Use Types Packs/Day [...] AM EDT documented as of this encounter Miscellaneous Notes * Telephone Encounter - Chandu Barba - 04/06/2021 12:56 PM EDT What insurance does the patient have today? [place] / [place] / Product Type: [place] [id number] Effective 06/18/09: [employer] will not retro referral requests over 90 days. If request is for this please instruct patient to call the 800# on their insurance card to appeal. Do not submit a request. Referrals cannot be processed if the insurance is not accurate. If the insurance listed above in red is NO BILLING INFORMATION FOUND FOR THIS ENCOUTNER The patients correct insurance must be obtained and registered in [facility] or their referral can not be processed. Is this a retro request? NO. If yes for what date of service do you need the retro referral? N/A Who is calling to request this referral? Patient If the caller is not the patient, what is their name? N/A Ask the patient WHO referred them to this specialty: Patient self referred FIRST and LAST NAME of SPECIALIST PATIENT is seeing: What specialty is this? Orthopedics DIAGNOSIS Patient is being seen for (Not a body part or a procedure): Back pain , pinched nerve Have you seen this SPECIALIST for this PROBLEM/DX before?YES If YES, when February 2021 Have you checked REVIEW or the APPT DESK to see if this referral has already been done or has visits left? YES Is this visit:Initial Visit Address of Specialist: Phone # of Specialist: Fax #: (if applicable): Does patient have an appointment scheduled?: NO Date of appointment- (including a retro-request): Is this appointment related to: Not MVA, WC or Surgery related documented in this encounter Plan of Treatment Not on file documented as of this encounter Visit Diagnoses Not on filedocumented in this encounter Care Teams Front End Developer Javascript Html Css Relationship Specialty Start Date End Date Luis Goff DO PCP - General Internal Medicine 02/18/21 Zack Cintron MD [address] [place] [id number] PCP - General Internal Medicine 07/09/21 06/06/22 Michelle Bettencourt MD [address] [place] [id number] PCP - General Internal Medicine 06/07/22 06/23/22 [facility], Pcp [address] [place] [id number] PCP - General Internal Medicine 06/24/22 documented as of this encounter
== END 2024-12-16 13:03 | disposition home or self-care (01) ==
LOC: HO.HOS 12:33
PROVIDERS: PCP Internal Medicine; Visit Provider Orthopaedic Surgery
DX: M25.311 Other instability, right shoulder (principal)
CPT/HCPCS: 99203; G2211

== ENCOUNTER → 2024-12-16 12:33 | Outpatient (BNVA) | payer MEDICARE, SELFPAY | PROVIDERS: PCP Internal Medicine; Visit Provider Orthopaedic Surgery | DX: M25.311 Other instability, right shoulder (principal) | CPT/HCPCS: 99202 ==

== ENCOUNTER → 2024-12-25 07:42 | Outpatient (BNV) | payer MEDICARE, SELFPAY | PROVIDERS: Visit Provider Radiology Diagnostic Radiology | DX: M75.121 Complete rotator cuff tear or rupture of right shoulder, not specified as traumatic (principal); M19.011 Primary osteoarthritis, right shoulder | CPT/HCPCS: 73221 ==

== ENCOUNTER 2024-12-25 07:45 | Outpatient (REF) | payer MEDICARE, SELFPAY ==
--- NOTE | ~2024-12-25 | MR_ITS ---
EXAMINATION: MR SHOULDER, RIGHT CLINICAL INFORMATION: Fall 3 months prior; pain, decreased range of motion. 79-year-old female. COMPARISON: No prior MRI. Right shoulder plain films to 12/22/2024. TECHNIQUE: Multiplanar multisequence MR imaging of the right shoulder was done without IV contrast. Examination performed on a 1.5 Irma Siemens unit utilizing standard sequences. FINDINGS: Rotator Cuff and Biceps Tendon: Supraspinatus: Complete retracted tear of the tendon with approximately 1.4 cm tendinous retraction. A few scant fibers remain intact although the tendon appears compromised. There is mild atrophy of the muscle belly. Infraspinatus: There is a small myotendinous tear (series 12, image 16). There is full-thickness tearing of the anterosuperior aspect of the tendon, contiguous with the supraspinatous tear. This involves approximately one third of the anterosuperior tendon. The remainder of the tendon appears intact with mildly increased signal in the distal fibers consistent with tendinopathy. The muscle belly is normal in signal. Subscapularis: The majority of the tendon is intact. There is partial articular surface insertional tearing of the distal tendon (series 5, image 12). There is tendinopathy of the abutting intact fibers. No full-thickness tear. Normal muscle belly. Teres Minor: Intact and normal in signal. Normal muscle belly. Biceps Long Head: Normally located within the bicipital groove. There is a linear delamination type tear within the tendon (series 5, images 12-14). Mildly increased fluid within the tendon sheath. There is high signal of the tendon within the rotator interval consistent with tendinopathy. AC Joint and Acromiohumeral Arch: There is a type III acromion. No significant undersurface spurs. 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 There is mild stenosis of the supraspinatus outlet. Glenohumeral Joint and Labrum: Mild degenerative arthritis in the glenohumeral joint. Mild superficial cartilage thinning and eburnation without full-thickness defect or subchondral bone plate edema. There is mild superior subluxation of the humeral head upon the glenoid. There is mild spurring of the inferior glenoid. The labrum demonstrates mild truncation and increased signal of the anterior superior and posterior aspects suggesting mild degenerative type tearing. Osseous Structures: Aside from mild periarticular edema of the AC joint, no additional bone marrow edema or abnormal infiltrating bone marrow signal. Spino-glenoid Notch: Normal. Quadrilateral Space: Normal. Other: The glenohumeral ligaments appear intact without thickening. Fluid in the subacromial/subdeltoid bursa is nonspecific in the setting of full-thickness rotator cuff tear. In addition there is fluid in the subcoracoid bursa. MR/MR shoulder RT wo con IMPRESSION: 1. Complete retracted tear of the supraspinatus tendon. Mild atrophy of the muscle belly. 2. Full-thickness tearing of the anterosuperior one third of the infraspinatus tendon. There is also a small myotendinous injury. There is associated tendinopathy of the intact fibers. 3. Partial insertional articular surface tearing of the subscapularis tendon with associated tendinopathy. 4. Linear delamination type tear of the long head of the biceps tendon with associated tendinopathy. 5. 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 6. Mild degenerative arthritis of the glenohumeral joint. There is likely mild degenerative tearing of the anterosuperior and posterior labrum. Electronically signed by: Homero Pérez MD 12/25/2024 10:37 AM EDT
== END 2024-12-25 07:46 | disposition home or self-care (01) ==
LOC: HO.MRI 07:45
PROVIDERS: Visit Provider Orthopaedic Surgery
DX: M25.311 Other instability, right shoulder (principal)
CPT/HCPCS: 73221

== ENCOUNTER 2024-12-26 08:46 | Outpatient (AMB) | payer MEDICARE, SELFPAY ==
--- NOTE | 2024-12-26 08:52 | MHC.OFFVIS ---
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 Post-steroid injection for cervical radiculopathy resulted in significant improvement in neck pain. However, severe right shoulder pain persists, worsening at night and limiting functional activities. An MRI revealed a full-thickness rotator cuff tear and moderate to severe arthritis in the shoulder. She has plans to follow up with Orthopedic provider for ongoing right shoulder pain and potential surgical intervention. Insomnia and mood disturbances due to pain and grief from the recent loss of her also impact her daily life. Denies any recent cough, cold, infection, fever or any other significant changes in medical history since last office visit. - Cervical Pain: Chronic pain for many years, has been worsening over the past one year - Quality: Improved significantly post injection - Current Severity: 2-3/10, previously worse - Aggravating Factors: Certain neck movements - Relieving Factors: Steroid injection - Shoulder Pain: - Onset: Ongoing - Quality: Stabbing, knife-like - Primary Location: Right shoulder - Severity: 7-8/10 - Aggravating Factors: Night time, sleeping on affected side - Function Interference: Right arm movement, sleep disturbances - Affect: Pain has affected mood and psychological wellbeing due to insomnia and grief. - Analgesia: Stopped using tramadol due to drowsiness effect. Reports significant pain in the right shoulder (7-8/10) and mild neck pain (2-3/10). Goal is pain reduction to manageable levels. - Adverse Effects: Tramadol causes sleepiness; meloxicam not used due to cost. - Activities of Daily Living: Pain significantly interferes with sleep and right arm functionality, limiting daily activities. - Aberrant Drug Related Behaviors: No signs of misuse or abuse of prescribed medications reported. Past Procedures: 11/28/24: Interlaminar epidural steroid injection, C6/7, Left parasaggital -80% ongoing pain relief PRIOR: Patient presents today for follow up with increased right shoulder and neck pain. She is scheduled for Right C6-C7 Interlaminar IRAIS on 11/28/24 for radicular neck symptoms and has pending Orthopedic evaluation on 12/31/24. Patient reports pain has been difficult to control at home with Tylenol, muscle relaxant, gabapentin, Ibuprofen and activity modifications. She cannot sleep on her right side due to pain. Pain affects her daily functioning, ROM, sleep and social interactions. Recent right shoulder xray showed degenerative change of glenohumeral and AC joints. Denies any recent cough, cold, infection, fever or other significant changes in medical history since last office visit. PRIOR: Patient presents today for follow-up for worsening neck and right shoulder pain with radiculopathy. 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 Patient arrived today tearful and grieving due to recent passing of her due to leukemia which they just found out few months ago. Patient is accompanied by her close family friend. Patient reports when she fell 4 weeks ago, she fell forward and injured her right shoulder and both knees. Patient denies any loss of consciousness or head trauma. She reports neck and shoulder pain with radiation into right posterior and lateral shoulder and down into right elbow and right fingers, mostly on the 2nd and 3rd fingers. She cannot lift her right arm above heart level and has weakness with numbness and tingling in her right hand. She has been managing her symptoms with muscle relaxant, gabapentin and Ibuprofen with continued symptoms. Denies any fever or chills, dizziness, headache, shortness of breaths, chest pain, visual disturbances, gait imbalances, bladder or bowel dysfunction, or saddle anesthesia. PRIOR 07/18/24: Patient presents today for follow-up for low back pain with right-sided radicular. Patient was evaluated by [facility] for neck symptoms last month and was nonsurgical. Patient reports neck pain has been minimal but reports exacerbation of chronic low back pain and would like to undergo therapeutic injection. She reports good pain relief with cortisone injection in her back given by Dr. Ryan and per MRI findings in 2020. Unfortunately we do not have lumbar MRI report or imaging and will reach out to Dr. Ryan today. Back pain radiates to the right buttock and into right posterior thigh and into her calf and heell with associated numbness and tingling. She reports increased right leg pain and heaviness with prolonged standing or walking. She also has mild localized tenderness in the projection right GTB and right SI joint areas. Denies any fever or chills, abdominal or groin pain, footdrop, balance issues, bladder or bowel dysfunction or saddle anesthesia. PRIOR: Patient presents today to discuss recent cervical spine MRI results. Patient reports she completed 12 sessions of PT up to date and this has been beneficial. However, she continues with difficulty turning her head to the right. During sleep, she has to constantly re-adjust her positioning on the right. Reports bilateral radicular symptoms in to her both hands with parasthesias in her left 5th finger and right 4th and 5th fingers with numbness and tingling. Reports intermittent low back pain with radiation into her right lower extremity laterally and lateral-posterior right calf and heel. Patient is interested to undergo Neurosurgical evaluation prior to interventional treatments. She will continue PT and home exercise program. Patient reports recent Walk-in visits for URI, COVID and sinusitis with improvement after taking antibiotics. Denies any current cough, cold, infection, fever, or any other significant changes in her medical history, medications or recent hospitalizations. Reports constipation unrelieved with home and OTC treatments. Past Procedures: 04/16/24: Bilateral diagnostic C4, C5, C6 MBB-50% pain relief for 3 days PRIOR: Patient is a very pleasant 78-year-old female with history of osteopenia, arthritis, cervical and lumbar spondylosis, presents today for initial evaluation of recurrent neck pain with limited range of motion, stiffness and spasms. Denies any recent trauma, injury, or falls. Patient reports good pain relief with cortisone injections by Dr. Casillas in the past which provided her 6 months pain relief. Patient also reports seeing Dr. Hollins in the past for arthritic hand pain. She also reports completing physical therapy which was not very beneficial at that time. She remains active in his daily activities despite the pain in her neck and lower back. She has not tried any medications and interested to pursue interventional treatments and PT at this time. Pain affects her daily activities and functioning and sleep. Pain is constant and most severe during the day and evenings which she rates at 7-9/10 and least severe pain at 6/10. Denies any radicular symptoms to her upper extremities, bladder or bowel dysfunction or saddle anesthesia. Reports intermittent numbness and tingling sensations in her lower extremities without weakness. Oswestry neck disability index score=17 (moderate disability) Location: Lower neck and back Duration: Chronic pain for many years, worsening over past 4-5 months Characteristics of symptom or complaint: Aching, throbbing, stabbing, numbness, tingling Aggravating or associated factors: Any movements, range of motions Relieving factors: Rest, stretching exercises, heat Treatment: PT, injections PFSH Medical History GERD (gastroesophageal reflux disease) Vitamin D deficiency Hypertension Surgical History S/P cataract extraction Family History Father Hypertension Mother Breast cancer Diabetes Sister Diabetes Social History Household Members Other:: , from [facility], 2 sons (one from COVID), Housing: House Patient Tobacco Use Status: Never used Tobacco e-Cigarette/Vaping Use: Never Used Current occupational status: retired Cognitive needs: No Hearing needs: No Vision needs: Yes Review of Systems Const Details: - Musculoskeletal: Reports neck pain, left shoulder pain - Neurological: Reports difficulty lifting right arm - Psychiatric: Reports insomnia and depressive symptoms due to grief - General: Denies systemic symptoms related to the pain All systems reviewed & are unremarkable except as noted in HPI and below Physical Exam Vital Signs: Last Vital Signs Pulse 74 12/26/24 08:57 BP 158/73 H 12/26/24 08:57 Pulse Ox 98 12/26/24 08:57 Oxygen Delivery Method Room Air 12/26/24 08:57 BMI result Body Mass Index 23.3 General: Appears afebrile. Alert and oriented. Mood and affect appropriate. Tearful, sad. Follows and participates in conversation appropriately. Respiratory effort is unlabored. No cough. Able to transition from sit to stand unassisted. Ambulates with bilaterally normal heel strike and toe off. Neck Neck: Yes normal visual inspection, Yes no lymphadenopathy, Yes supple, No anterior neck swelling, Yes no JVD and Yes prominent dorsocervical fat pad Back/Spine/Pelvis Cervical Spine: No Lhermitte's sign positive, cervical muscular tenderness, pain with cervical ROM, No Cervical spine scars present and No Cervical spine tenderness Thoracic/Lumbar Spine: thoracic and lumbar spine normal to inspection, pain with thoraco-lumbar ROM, No thoracic spinal tenderness and lumbar spinal tenderness at L4 and at L5 Extrem General: Yes capillary refill normal, Yes no clubbing, cyanosis or edema and Yes no calf tenderness Right upper extremity: shoulder/upper arm (Limited ROM, I/E rotations reproduces moderate-severe pain) Details: normal to inspection and tenderness Location: of the A-C joint and over the subacromial bursa; no swelling, no ecchymosis, no crepitus and no unusual warmth Psych Appearance: grossly normal and well kempt Mental Status: mental status grossly normal Speech and movement: Normal speech and movement present and Clear speech present Affect: normal affect and Sad affect present Attitude: cooperative Thought process: Normal thought process present Thought content: Normal thought content present and Depressive thoughts present Insight: Good insight present (Psych) Judgement: Good judgement present (Psych) Results Reviewed Results Reviewed: XR SHOULDER RT min 2V 10/22/24 CLINICAL HISTORY: M25.511 - Pain in right shoulder Comparison: None FINDINGS: No acute fracture or dislocation identified. Degenerative change glenohumeral and AC joints. No radiopaque foreign body noted. IMPRESSION: No acute bony abnormality MR CERVICAL SPINE WITHOUT CONTRAST 05/25/24 CLINICAL INFORMATION: Spondylolisthesis COMPARISON: Cervical spine radiographs February 09, 2024 FINDINGS: The craniocervical junction is intact. Nonspecific straightening of the normal cervical lordosis. Grade 1 anterolisthesis at C4-C5 and to a lesser extent at C2-C3. Vertebral body heights are normal without acute compression fracture. Intraosseous hemangioma within the T2 vertebral body. Diffuse disc desiccation with moderate to severe disc height loss at C5-C6 and C6-C7 and mild disc height loss at C4-C5. Ventral disc osteophytes at C5-C6 greater than C6-C7. There are multilevel degenerative changes with level by level detail as follows: C2-C3: Small central disc protrusion and asymmetric hypertrophic right facet arthrosis. No spinal canal stenosis. Mild right without left neural foraminal stenosis. C3-C4: Central disc protrusion with left greater than right uncovertebral joint hypertrophy and asymmetric hypertrophic left and mild right facet arthrosis. No spinal canal stenosis. Severe left without right neural foraminal stenosis. C4-C5: Severe hypertrophic bilateral facet arthrosis with unroofing of the posterior disc and bilateral uncovertebral joint hypertrophy. No spinal canal stenosis. Moderate to severe left and mild right neural foraminal stenosis. C5-C6: Disc osteophyte complex with right paracentral disc osteophyte protrusion, bilateral uncovertebral joint hypertrophy, and bilateral facet arthrosis. Moderate spinal canal stenosis with concave indentation along the right ventral cord and severe bilateral neural foraminal stenosis. C6-C7: Disc osteophyte complex with inferiorly migrated right paracentral disc extrusion, bilateral uncovertebral joint hypertrophy, and bilateral facet arthrosis. Mild right eccentric spinal canal stenosis with flattening along the right ventral cord and severe bilateral neural foraminal stenosis. C7-T1: Left greater than right facet arthrosis. No spinal canal stenosis. Mild bilateral neural foraminal narrowing. No cervical cord signal abnormality. No epidural fluid collection, mass, or hematoma. No significant abnormalities of the paraspinal musculature. The flow voids of the major cervical vessels are maintained. The visualized intracranial structures are normal. No demonstrated abnormalities in the visualized neck. IMPRESSION: 1. Multilevel cervical spondylosis as described above, worst at C5-C6 where there is moderate spinal canal stenosis with concave indentation along the right ventral cord and severe bilateral neural foraminal stenosis. No cord signal abnormality. 2. At C6-C7, there is mild right eccentric spinal canal stenosis with flattening along the right ventral cord and severe bilateral neural foraminal stenosis. 3. Additional level by level detail as above. X-RAY CERVICAL SPINE X-RAY LUMBAR SPINE 02/09/24 INDICATION: Cervical disc degeneration, spondylosis without myelopathy or radiculopathy cervical region. FINDINGS: Cervical spine: Straightening of the normal cervical lordosis. Degenerative changes between the anterior arch of C1 and the odontoid. 3.5 mm anterolisthesis of C4 on C5. Minimal retrolisthesis of C5 on C6. Marked degenerative changes with large anterior osteophytes and loss of disc space height at C5-C6. Moderate degenerative changes with anterior hypertrophic change and loss of disc space height at C6-C7. Lumbar spine: Dextroscoliosis of the lumbar spine. Advanced degenerative changes in the imaged lower thoracic spine. The bones are diffusely demineralized. Degenerative changes on limited images of the bilateral sacroiliac joints and hips. Facet arthritis in the [id number] lumbar spine. Advanced multilevel lumbar spondylosis with multilevel loss of disc space height most marked at L4-L5. Grade 1 retrolisthesis of L3 on L4. IMPRESSION: 1. Marked degenerative changes at C5-C6. 2. Advanced multilevel lumbar spondylosis most marked at L4-L5. MR SHOULDER, RIGHT 12/25/24 CLINICAL INFORMATION: Fall 3 months prior; pain, decreased range of motion. 79-year-old female. COMPARISON: No prior MRI. Right shoulder plain films to 12/22/2024. FINDINGS: Rotator Cuff and Biceps Tendon: Supraspinatus: Complete retracted tear of the tendon with approximately 1.4 cm tendinous retraction. A few scant fibers remain intact although the tendon appears compromised. There is mild atrophy of the muscle belly. Infraspinatus: There is a small myotendinous tear (series 12, image 16). There is full-thickness tearing of the anterosuperior aspect of the tendon, contiguous with the supraspinatous tear. This involves approximately one third of the anterosuperior tendon. The remainder of the tendon appears intact with mildly increased signal in the distal fibers consistent with tendinopathy. The muscle belly is normal in signal. Subscapularis: The majority of the tendon is intact. There is partial articular surface insertional tearing of the distal tendon (series 5, image 12). There is tendinopathy of the abutting intact fibers. No full-thickness tear. Normal muscle belly. Teres Minor: Intact and normal in signal. Normal muscle belly. Biceps Long Head: Normally located within the bicipital groove. There is a linear delamination type tear within the tendon (series 5, images 12-14). Mildly increased fluid within the tendon sheath. There is high signal of the tendon within the rotator interval consistent with tendinopathy. AC Joint and Acromiohumeral Arch: There is a type III acromion. No significant undersurface spurs. 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 There is mild stenosis of the supraspinatus outlet. Glenohumeral Joint and Labrum: Mild degenerative arthritis in the glenohumeral joint. Mild superficial cartilage thinning and eburnation without full-thickness defect or subchondral bone plate edema. There is mild superior subluxation of the humeral head upon the glenoid. There is mild spurring of the inferior glenoid. The labrum demonstrates mild truncation and increased signal of the anterior superior and posterior aspects suggesting mild degenerative type tearing. Osseous Structures: Aside from mild periarticular edema of the AC joint, no additional bone marrow edema or abnormal infiltrating bone marrow signal. Spino-glenoid Notch: Normal. Quadrilateral Space: Normal. Other: The glenohumeral ligaments appear intact without thickening. Fluid in the subacromial/subdeltoid bursa is nonspecific in the setting of full-thickness rotator cuff tear. In addition there is fluid in the subcoracoid bursa. IMPRESSION: 1. Complete retracted tear of the supraspinatus tendon. Mild atrophy of the muscle belly. 2. Full-thickness tearing of the anterosuperior one third of the infraspinatus tendon. There is also a small myotendinous injury. There is associated tendinopathy of the intact fibers. 3. Partial insertional articular surface tearing of the subscapularis tendon with associated tendinopathy. 4. Linear delamination type tear of the long head of the biceps tendon with associated tendinopathy. 5. 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 6. Mild degenerative arthritis of the glenohumeral joint. There is likely mild degenerative tearing of the anterosuperior and posterior labrum. Assessment & Plan Assessment & Plan (1) Cervical radiculopathy due to degenerative joint disease of spine: Comment: Follows up with a pain management Code(s): M47.22 - Other spondylosis with radiculopathy, cervical region Category: Medical (2) Cervical spondylosis: Code(s): M47.812 - Spondylosis without myelopathy or radiculopathy, cervical region Category: Medical (3) Right shoulder pain: Code(s): M25.511 - Pain in right shoulder Category: Medical (4) Degenerative cervical spinal stenosis: Code(s): M48.02 - Spinal stenosis, cervical region Category: Medical (5) Spondylolisthesis of cervical region: Code(s): M43.12 - Spondylolisthesis, cervical region Category: Medical (6) Osteoarthritis of right shoulder: Code(s): M19.011 - Primary osteoarthritis, right shoulder Category: Medical Plan Patient is one month status post C6-C7 interlaminar parasagittal IRAIS with good relief for cervical radicular symptoms with partial improvement in her functioning. Re-evaluate neck pain relief periodically to assess the need for further interventions. The patient should follow up with orthopedics for potential surgical intervention regarding right rotator cuff MRI findings and significant right shoulder pain. Emotional support through caodaism and social connections is utilized by patient as she continue grieving the unexpected loss of her . All questions were answered and the patient is in agreement with the plan. Follow-up as needed. Medications: Discontinued tramadol Discontinued Reason: Patient Completed Course 50 mg PO BID 15 days PRN 30 tabs 0RF pain M25.511 - Pain in right shoulder, M47.22 - Other spondylosis with radiculopathy, cervical region, M47.812 - Spondylosis without myelopathy or radiculopathy, cervical region Coding Level of Care Code Est Pt Level 4 (32599) Complex EM visit Add On G2211 Diagnoses Cervical radiculopathy due to degenerative joint disease of spine M47.22 Cervical spondylosis M47.812 Right shoulder pain M25.511 Degenerative cervical spinal stenosis M48.02 Spondylolisthesis of cervical region M43.12 Osteoarthritis of right shoulder M19.011
[2024-12-26 08:57] VITALS: BP 158/73; PULSE 74; O2SAT 98; BMI 23.3
== END 2024-12-26 09:39 | disposition home or self-care (01) ==
LOC: HO.PMC 08:46
PROVIDERS: PCP Internal Medicine; Visit Provider Nurse Practitioner Family
DX: M47.22 Other spondylosis with radiculopathy, cervical region (principal); M47.812 Spondylosis without myelopathy or radiculopathy, cervical region; M25.511 Pain in right shoulder; M48.02 Spinal stenosis, cervical region; M43.12 Spondylolisthesis, cervical region; M19.011 Primary osteoarthritis, right shoulder
CPT/HCPCS: 99214; G2211

== ENCOUNTER → 2024-12-26 08:46 | Outpatient (BNVA) | payer MEDICARE, SELFPAY | PROVIDERS: PCP Internal Medicine; Visit Provider Nurse Practitioner Family | DX: M47.22 Other spondylosis with radiculopathy, cervical region (principal); M48.02 Spinal stenosis, cervical region; M43.12 Spondylolisthesis, cervical region; M19.011 Primary osteoarthritis, right shoulder | CPT/HCPCS: 99212 ==

== ENCOUNTER 2025-01-02 07:43 | Outpatient (AMB) | payer MEDICARE, SELFPAY ==
--- OUTSIDE RECORDS SUMMARY | 2025-01-02 07:46 | XMS_ITS | Encounter Summary ---
Author Organization [facility] Address [address] [place] [address] Care Team Providers Care Assistant Track Coach Name Role Phone Misa Ferro MD Primary Care Provider UnaLuis Rivera DO Primary Care Provider Kimberly vailable Zack Cintron MD Primary Care Provider [phone] Michelle Bettencourt MD Primary Care Prov ider [facility] Pcp Primary Care Provider Unavailabl e Encounter Details Date Type Department Care Team Description 11/19/2020 Orders Only Radiology - [address] [id number] Misa Ferro MD Social History Tobacco Use [...] on filedocumented in this encounter Care Teams Assistant Track Coach Relationship Specialty Start Date End Date Misa Ferro MD PCP - General Internal Medicine 03/06/17 02/17/21 Luis Goff DO PCP - General Internal Medicine 02/18/21 Zack Cintron MD [address] [place] [id number] PCP - General Internal Medicine 07/09/21 06/06/22 Michelle Bettencourt MD [address] [place] [address] PCP - General Internal Medicine 06/07/22 06/23/22 [facility], Pcp [address] [place] [id number] PCP - General Internal Medicine 06/24/22 documented as of this encounter
--- OUTSIDE RECORDS SUMMARY | 2025-01-02 07:46 | XMS_ITS | Encounter Summary ---
Author Organization [facility] Address [address] [place] [address] Care Team Providers Care X Ray Nurse Name Role Phone Michelle Bettencourt MD Primary Care Prov ider [facility], Pcp Primary Care Provider Unavailabl e Reason for Visit * Reason Comments E-prescribe Rx Request Encounter Details Date Type Department Care Team Description 06/07/2022 Refill Adult Medicine [address] [id number] Key Zuniga PA E-prescribe Rx Request Social [...] / Plan: [place] / Product Type: MEDICARE [id number] documented in this encounter Plan of Treatment Not on file documented as of this encounter Visit Diagnoses Not on filedocumented in this encounter Care Teams X Ray Nurse Relationship Specialty Start Date End Date Michelle Bettencourt MD [address] [place] [phone] PCP - General Internal Medicine 06/07/22 06/23/[address] [address] PCP - General Internal Medicine 06/24/22 documented as of this encounter
--- OUTSIDE RECORDS SUMMARY | 2025-01-02 07:46 | XMS_ITS | Encounter Summary ---
Author Organization [facility] Address [address] [place] [address] Care Team Providers Care Wrap Knitting Machine Operator Name Role Phone Zack Cintron MD Primary Care Provider Michelle Bettencourt MD Primary Care Prov ider [facility], Pcp Primary Care Provider [facility] Encounter Details Date Type Department Care Team Description 04/12/2022 Business Doc Medical Records [address] [place] [id number] Abstract, Provider Social History Tobacco Use Types Packs/Day Years Used Date Smoking Tobacco: Never Smokeless Tobacco: Never Alcohol Use Standard Drinks/Week Comments No 0 (1 standard drink = 0.6 oz pur e alcohol) Sex Assigned at Date Recorded Not on file Job Start Date Occupation Industry Not on file Not on file Not on file COVID-19 Exposure Response Date Recorded In the last 10 days, have yo u been in contact with someone who was confirmed or suspected to have Coronavirus/COVID-19? No / Unsure 04/08/2022 8:19 AM EDT documented as of this encounter Plan of Treatment Not on file documented as of this encounter Visit Diagnoses Not on filedocumented in this encounter Care Teams Wrap Knitting Machine Operator Relationship Specialty Start Date End Date Zack Cintron MD [address] [place] [address] PCP - General Internal Medicine 07/09/21 06/06/22 Michelle Bettencourt MD [address] [place] [address] PCP - General Internal Medicine 06/07/22 06/23/22 [facility], Pcp [address] [place] [address] PCP - General Internal Medicine 06/24/22 documented as of this encounter
--- OUTSIDE RECORDS SUMMARY | 2025-01-02 07:46 | XMS_ITS | Encounter Summary ---
Author Organization [facility] Address [address] [place] [address] Care Team Providers Care Lease Out Worker Name Role Phone Misa Ferro MD Primary Care Provider Unava Luis Gordon DO Primary Care Provider Kimberly Zack Otero MD Primary Care Provider [phone] Michelle Bettencourt MD Primary Care Prov ider [facility], Pcp Primary Care Provider Unavailabl e Reason for Visit * Reason Onset Date Comments REFERRAL 08/29/2019 Encounter Details Date Type Department Care Team Description 08/29/2019 Telephone OBGYN - [address] [address] Nayana Hartley MD [address] [address] REFERRAL Social History Tobacco Use Types Packs/Day [...] Normal mammo -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 Pt???s SURG NURSE provider: Nayana Hartley M.D. Last menstrual period (LMP) or EDC (due date): N/A documented in this encounter Plan of Treatment Not on file documented as of this encounter Visit Diagnoses Not on filedocumented in this encounter Care Teams Lease Out Worker Relationship Specialty Start Date End Date Misa Ferro MD PCP - General Internal Medicine 03/06/17 02/17/21 Luis Goff DO PCP - General Internal Medicine 02/18/21 Zack Cintron MD [address] [place], [place] [phone] PCP - General Internal Medicine 07/09/21 06/06/22 Michelle Bettencourt MD [address] [place] [address] PCP - General Internal Medicine 06/07/22 06/23/22 [facility], Pcp [address] [place], [place] [phone] PCP - General Internal Medicine 06/24/22 documented as of this encounter
--- OUTSIDE RECORDS SUMMARY | 2025-01-02 07:46 | XMS_ITS | Encounter Summary ---
Author Organization [facility] Address [address] [place] [address] Care Team Providers Care Quality Director Name Role Phone Misa Ferro MD Primary Care Provider Unava Luis Gordon DO Primary Care Provider Kimberly Zack Otero MD Primary Care Provider [phone] Michelle Bettencourt MD Primary Care Prov ider [facility], Pcp Primary Care Provider Unavailabl e Reason for Visit * Reason Onset Date Comments Call-returning From Provider 10/01/2019 Encounter Details Date Type Department Care Team Description 10/01/2019 Telephone Adult Medicine [address] [address] Melanie Hunt PA-C [address] [place] [address] [phone] Call-returning From Provider Social History Tobacco Use [...] on filedocumented in this encounter Care Teams Quality Director Relationship Specialty Start Date End Date Misa Ferro MD PCP - General Internal Medicine 03/06/17 02/17/21 Luis Goff DO PCP - General Internal Medicine 02/18/21 Zack Cintron MD [address] [place] [address] PCP - General Internal Medicine 07/09/21 06/06/22 Michelle Bettencourt MD [address] [place] [address] PCP - General Internal Medicine 06/07/22 06/23/22 [facility], [place] [address] PCP - General Internal Medicine 06/24/22 documented as of this encounter
--- OUTSIDE RECORDS SUMMARY | 2025-01-02 07:46 | XMS_ITS | Encounter Summary ---
Author Organization [facility] Address [address] [place] [address] Care Team Providers Care Finance Analyst Name Role Phone Misa Ferro MD Primary Care Provider UnaLuis Rivera DO Primary Care Provider Kimberly esailaZack Sam MD Primary Care Provider [phone] Michelle Bettencourt MD Primary Care Prov ider [facility], Pcp Primary Care Provider Unavailabl e Encounter Details Date Type Department Care Team Description 11/11/2019 Hospital Medical Records [address] [place] [address] Social History Tobacco Use Types Packs/Day Years [...] on filedocumented in this encounter Care Teams Finance Analyst Relationship Specialty Start Date End Date Misa Ferro MD PCP - General Internal Medicine 03/06/17 02/17/21 Luis Goff DO PCP - General Internal Medicine 02/18/21 Zack Cintron MD [address] [place] [address] PCP - General Internal Medicine 07/09/21 06/06/22 Michelle Bettencourt MD [address] [place] [address] PCP - General Internal Medicine 06/07/22 06/23/22 [facility], Pcp [address] [place] [address] PCP - General Internal Medicine 06/24/22 documented as of this encounter
--- OUTSIDE RECORDS SUMMARY | 2025-01-02 07:46 | XMS_ITS | Encounter Summary ---
Author Organization [facility] Address [address] [place] [address] Care Team Providers Care Sustainable Agriculture Specialist Name Role Phone Misa Ferro MD Primary Care Provider Luis Lao DO Primary Care Provider Kimberly Zack Otero MD Primary Care Provider [phone] Michelle Bettencourt MD Primary Care Prov ider [facility] Pcp Primary Care Provider Unavailabl e Encounter Details Date Type Department Care Team Description 03/02/2020 Orders Only Internal Medicine - [address], [address] [place] [address] Dashawn Cross PA-C Social History Tobacco Use [...] on filedocumented in this encounter Care Teams Sustainable Agriculture Specialist Relationship Specialty Start Date End Date Misa Ferro MD PCP - General Internal Medicine 03/06/17 02/17/21 Luis Goff DO PCP - General Internal Medicine 02/18/21 Zack Cintron MD [address] [place] [address] PCP - General Internal Medicine 07/09/21 06/06/22 Michelle Bettencourt MD [address] [place] [address] PCP - General Internal Medicine 06/07/22 06/23/22 [facility], Pcp [address] [place] [address] PCP - General Internal Medicine 06/24/22 documented as of this encounter
--- OUTSIDE RECORDS SUMMARY | 2025-01-02 07:46 | XMS_ITS | Encounter Summary ---
Author Organization [facility] Address [address] [place] [address] Care Team Providers Care Hand Nailer Name Role Phone Misa Ferro MD Primary Care Provider UnaLuis Rivera DO Primary Care Provider Kimberly Zack Otero MD Primary Care Provider [phone] Michelle Bettencourt MD Primary Care Prov ider [facility] Pcp Primary Care Provider Unavailabl e Encounter Details Date Type Department Care Team Description 09/08/2017 Business Doc Medical Records [address] [place] [address] Abstract, Provider Social History Tobacco Use Types [...] on filedocumented in this encounter Care Teams Hand Nailer Relationship Specialty Start Date End Date Misa Ferro MD PCP - General Internal Medicine 03/06/17 02/17/21 Luis Goff DO PCP - General Internal Medicine 02/18/21 Zack Cintron MD [address] [place] [phone] PCP - General Internal Medicine 07/09/21 06/06/22 Michelle Bettencourt MD [address] [place] [address] PCP - General Internal Medicine 06/07/22 06/23/22 [facility] Pcp [address] [place] [address] PCP - General Internal Medicine 06/24/22 documented as of this encounter
--- OUTSIDE RECORDS SUMMARY | 2025-01-02 07:46 | XMS_ITS | Encounter Summary ---
Author Organization [facility] Address [address] [place] [address] Care Team Providers Care Superintendent Pressure Name Role Phone Luis Goff DO Primary Care Provider Kimberly Zack Otero MD Primary Care Provider Michelle Bettencourt MD Primary Care Prov ider [facility] Pcp Primary Care Provider Unavailabl e Encounter Details Date Type Department Care Team Description 06/08/2021 Vice President Of Talent Management Report Medical Records [address] [place] [address] Mundo Ryan DO Social History Tobacco Use [...] have Coronavirus / COVID-19? No / Unsure 05/31/2021 8:29 AM EDT documented as of this encounter Plan of Treatment Not on file documented as of this encounter Visit Diagnoses Not on filedocumented in this encounter Care Teams Superintendent Pressure Relationship Specialty Start Date End Date Luis Goff DO PCP - General Internal Medicine 02/18/21 Zack Cintron MD [address] [place], [place] [phone] PCP - General Internal Medicine 07/09/21 06/06/22 Michelle Bettencourt MD [address] [place] [address] PCP - General Internal Medicine 06/07/22 06/23/22 [facility] Pcp [address] [place] [address] PCP - General Internal Medicine 06/24/22 documented as of this encounter
--- NOTE | 2025-01-02 07:47 | MHC.OFFVIS ---
Vital Signs 01/02/25 07:50 Height 5 ft 3 in Weight 131 lb BMI 23.2 Intake Visit Reasons: OV- RT Shoulder MRI review Intake Note: Wendi is a 79 year old right hand dominant female who presents with complaints of progressively worsening right shoulder pain and weakness. The patient states that several months ago she slipped and fell directly onto her right arm. Since that time she has had difficulty lifting her right hand above shoulder height. She has failed the last 6 weeks of conservative treatment which has included a home exercise program, physical therapy exercises, Tylenol and anti-inflammatory medicines. Allergies lisinopril Adverse Reaction (Intermediate, Verified 01/02/25 07:50) cough tizanidine Adverse Reaction (Intermediate, Verified 01/02/25 07:50) Nightmare Medication List - Last Reconciled 01/02/25 by Chin Griffin MD acetaminophen ER (Tylenol Arthritis Pain) 650 mg PO Q12H atorvastatin 40 mg PO DAILY cholecalciferol (vitamin D3) 50 mcg (2 x 25 mcg (1,000 unit)) PO DAILY cyclosporine 0.05% (Restasis) drps ophthalmic (eye) docusate sodium (Dulcolax Stool Softener (docusate)) 100 mg PO BID 30 days magnesium glycinate 200 mg (2 x 100 mg) PO DAILY 30 days meloxicam 15 mg PO DAILY PRN ssoozlke-tgz-ncsa-FA-lutein (Centrum Silver Women) PO naloxone 4 mg/actuation (Narcan) 4 mg intranasal Q2M PRN olmesartan 20 mg PO DAILY omeprazole 20 mg PO DAILY PFSH Medical History GERD (gastroesophageal reflux disease) Vitamin D deficiency Hypertension Surgical History S/P cataract extraction Family History Father Hypertension Mother Breast cancer Diabetes Sister Diabetes Social History Household Members Other:: , from [place], 2 sons (one from COVID), Housing: House Patient Tobacco Use Status: Never used Tobacco e-Cigarette/Vaping Use: Never Used Current occupational status: retired Current occupation: rt handed Cognitive needs: No Hearing needs: No Vision needs: Yes Physical Exam Vital Signs: BMI result Body Mass Index 23.2 Const Other: Well-nourished well-developed very friendly female awake alert and oriented x3 in no acute distress Extrem Other: Right shoulder examination shows decreased active range of motion but almost full passive range of motion when compared to her left shoulder, 4/5 strength with supraspinatus testing, positive impingement signs tenderness over her acromioclavicular joint, no instability Results Reviewed Results Reviewed: MRI of the patient's right shoulder show severe acromioclavicular joint narrowing, a type 2 acromion, a full-thickness supraspinatus tendon tear Assessment & Plan Assessment & Plan (1) Rotator cuff insufficiency of right shoulder: Code(s): M25.311 - Other instability, right shoulder Category: Medical Plan Ms. Griffith presents with right shoulder pain and weakness due to impingement syndrome, acromioclavicular joint arthritis and a full-thickness rotator cuff tear. I had a lengthy discussion with the patient regarding the treatment options. At this point she has failed continued non operative treatments. The risks and benefits of right shoulder surgery were discussed at length with the patient. The patient wishes to proceed with surgery. Surgery will involve right shoulder diagnostic arthroscopy with distal clavicle excision, acromioplasty and rotator cuff repair. The patient will be scheduled for next available date. She will follow-up as instructed. Feel free to call me at any time should questions regarding her orthopedic management arise. I spent 21 minutes in reviewing the patient's records and imaging studies, seeing the patient and documenting in the medical record. Coding Level of Care Code Est Pt Level 3 (81968) Complex EM visit Add On G2211 Diagnoses Rotator cuff insufficiency of right shoulder M25.311
[2025-01-02 07:50] VITALS: BMI 23.2
== END 2025-01-02 08:08 | disposition home or self-care (01) ==
PROVIDERS: PCP Internal Medicine; Visit Provider Orthopaedic Surgery
DX: M25.311 Other instability, right shoulder (principal)
CPT/HCPCS: 99214; G2211

== ENCOUNTER → 2025-01-02 07:43 | Outpatient (BNVA) | payer MEDICARE, SELFPAY | PROVIDERS: PCP Internal Medicine; Visit Provider Orthopaedic Surgery | DX: M25.311 Other instability, right shoulder (principal) | CPT/HCPCS: 99212 ==

== ENCOUNTER → 2025-02-07 12:50 | Outpatient (BNV) | payer MEDICARE, SELFPAY | PROVIDERS: PCP Nurse Practitioner Family; Visit Provider Internal Medicine Cardiovascular Disease | DX: R94.31 Abnormal electrocardiogram [ECG] [EKG] (principal); Z01.810 Encounter for preprocedural cardiovascular examination | CPT/HCPCS: 93010 ==

== ENCOUNTER 2025-02-21 09:56 | Day surgery (SDC) | payer MEDICARE, SELFPAY ==
[2025-02-07 12:14] VITALS: BMI 23.9
[2025-02-07 12:28] VITALS: BP 144/70; PULSE 75; RESP 20; O2SAT 97
--- NOTE | 2025-02-07 12:50 | ECG_ITS ---
Test Reason : PREOP Blood Pressure : */* mmHG Vent. Rate : 71 BPM Atrial Rate : 71 BPM P-R Int : 146 ms QRS Dur : 74 ms QT Int : 398 ms P-R-T Axes : 70 46 40 degrees QTcB Int : 432 ms Normal sinus rhythm Possible Left atrial enlargement ST & T wave abnormality, consider anterior ischemia Abnormal ECG No previous ECGs available Referred By: Dora Forbes Electronically Signed By: Torey Alberts
[2025-02-07 13:50] LABS: Hematocrit 38.8 % (37.0-47.0); Hemoglobin 13.1 g/dl (12.0-16.0); Mean Corpuscular HGB Conc 33.8 g/dl (31.0-35.0); Mean Corpuscular Hemoglobin 32.2 pg (27.0-33.0); Mean Corpuscular Volume 95.3 fL (80.0-98.0); Mean Platelet Volume 10.5 fL (9.4-12.3); Platelet Count 413 X10*3/uL (160-400); Red Blood Count 4.07 X10*6/uL (4.20-5.50); Red Cell Distribution Width 13.2 % (11.0-16.0); White Blood Count 7.3 X10*3/uL (4.8-10.8)
[2025-02-07 14:11] LABS: Anion Gap 11 (12-20); Blood Urea Nitrogen 15 mg/dL (9-16); Calcium 9.4 mg/dL (8.4-10.2); Carbon Dioxide 28 mmol/L (22-29); Chloride 108 mmol/L (96-108); Creatinine Clr Calc Pharmacy 60.9; Estimated Glomerular Filt Rate > 60; Glucose Random 92 mg/dL (60-115); Potassium 4.2 mmol/L (3.3-5.1); Sodium 143 mmol/L (135-145)
--- NOTE | 2025-02-20 09:41 | HO.ANESPROP2 ---
Documented by User: Rabia Valdez NP 02/20/25 09:42 HPI - Anesthesia Eval Consult details Narrative: 79yo F for Right Shoulder Arthroscopy distal clavicle excsion,acromioplasty,rotator cuff repair PMFSH Active Problems Active Problems: All Active Problems Rotator cuff insufficiency of right shoulder (Acute) Cervical radicular pain (Acute) Osteoarthritis of right shoulder (Acute) Grieving (Acute) Right shoulder pain (Acute) Lumbar radiculopathy, right (Acute) Spondylolisthesis of cervical region (Acute) Degenerative cervical spinal stenosis (Acute) Constipation (Acute) URI (upper respiratory infection) (Acute) Cervicalgia (Acute) Degenerative joint disease of both hips (Acute) Degenerative joint disease of sacroiliac joint (Acute) Decreased bone density (Acute) Lumbosacral spondylosis (Acute) Muscle spasm (Acute) Degenerative disc disease, cervical (Acute) Cervical spondylosis (Acute) Cataract (Acute) Annual physical exam (Acute) High serum vitamin B12 (Acute) Asymptomatic gallstones (Acute) Adrenal adenoma (Acute) DENT (dyspnea on exertion) (Acute) DJD (degenerative joint disease), lumbar (Acute) Postmenopausal (Acute) Edema (Acute) Hx of colonoscopy (Acute) S/P abdominal hysterectomy (Acute) Cervical radiculopathy due to degenerative joint disease of spine (Acute) Hyperlipidemia (Acute) GERD (gastroesophageal reflux disease) (Acute) Vitamin D deficiency (Acute) Hypertension (Acute) Past Medical History Medical History (Updated 02/07/25 @ 12:02 by Deandra Montes RN) Adrenal adenoma Elevated cholesterol HTN (hypertension) DJD (degenerative joint disease) Lumbar spondylolysis Cervical spondylosis Arthritis Vitamin D deficiency GERD (gastroesophageal reflux disease) Hypertension Family History Family History Father Hypertension Mother Breast cancer Diabetes Sister Diabetes Surgical History Surgical History H/O colonoscopy Hx of hysterectomy S/P cataract extraction Social History Social History Household Members Other:: , from [place], 2 sons (one from COVID), Housing: House Are you a primary healthcare corporate account director to a significant other at home: No Do you presently have visiting nurse or other home services: No Patient Tobacco Use Status: Never used Tobacco e-Cigarette/Vaping Use: Never Used Use of substances other than those prescribed or required for medical reasons: No Have you been hit, kicked, punched, or otherwise hurt by someone within the past year? If so, by whom?: No Spiritual Healthcare Practices: no Taoism Healthcare Practices: no-Yarsani Cultural Healthcare Practices: no Are you DNR?: No Advance Directives: No Advance Directives Information Provided: Yes Advance Directives on File: No FDLMP: n/a Current occupational status: retired Current occupation: rt handed Cognitive needs: No Hearing needs: No Vision needs: Yes Meds Allergies Allergy/AdvReac Type Severity Reaction Status Date / Time lisinopril AdvReac Intermediate cough Verified 02/21/25 10:18 tizanidine AdvReac Intermediate Nightmares Verified 02/21/25 10:18 Active Medications: Current Medications Cefazolin Sodium/Dextrose (Ancef) 2 gm in 50 mls @ 100 mls/hr IV PREOP ONE Stop: 02/21/25 05:46 Home Medications ?Medication ?Instructions ?Recorded ?Confirmed ?Last Taken ?Type cyclosporine 0.05 % eye drops in a 1 drp ophthalmic (eye) BEDTIME 04/22/24 02/21/25 Unknown History dropperette (Restasis) Lactobacillus acidophilus 10 10,000 mmu cells PO DAILY 02/07/25 02/21/25 Unknown History billion cell capsule (Probiotic) acetaminophen 650 mg 650 mg PO Q12H PRN Pain 02/07/25 02/21/25 Unknown History tablet,extended release (Tylenol Arthritis Pain) atorvastatin 40 mg tablet 40 mg PO BEDTIME 02/07/25 02/21/25 Unknown History cholecalciferol (vitamin D3) 25 50 mcg PO QAM 02/07/25 02/21/25 Unknown History mcg (1,000 unit) capsule meloxicam 15 mg tablet 15 mg PO QAM 02/07/25 02/21/25 02/14/25 History enzgcerc-mbuj-uffr 8 mg-folic 400 1 tab PO DAILY 02/07/25 02/21/25 Unknown History mcg-K 50 mcg-lutein 300 mcg tablet (Centrum Silver Women) omeprazole 20 mg capsule,delayed 20 mg PO QAM 02/07/25 02/21/2525 History release Exam Height,Weight and Vital Signs: Height 5 ft 3 in Weight 61.235 kg Last Vital Signs Pulse 75 02/07/25 12:28 Resp 20 02/07/25 12:28 BP 144/70 H 02/07/25 12:28 Pulse Ox 97 02/07/25 12:28 O2 Del Method Room Air 02/07/25 12:28 Pertinent Lab Results Pertinent Lab Results: Laboratory Tests 02/07/25 13:06 WBC 7.3 RBC 4.07 L Hgb 13.1 Hct 38.8 MCV 95.3 MCH 32.2 MCHC 33.8 RDW 13.2 Plt Count 413 H D MPV 10.5 Absolute Nucleated RBC 0.000 Nucleated RBC % (auto) 0.0 Sodium 143 Potassium 4.2 Chloride 108 Carbon Dioxide 28 Anion Gap 11 L BUN 15 Creatinine 0.62 Estim Creat Clear Calc 60.9 Estimated GFR > 60 Random Glucose 92 Calcium 9.4 Narrative Narrative: EKG 01/2024 Vent. Rate : 71 BPM Atrial Rate : 71 BPM P-R Int : 146 ms QRS Dur : 74 ms QT Int : 398 ms P-R-T Axes : 70 46 40 degrees QTcB Int : 432 ms Normal sinus rhythm Possible Left atrial enlargement ST & T wave abnormality, consider anterior ischemia Abnormal ECG No previous ECGs available Assessment and Plan Assessment Anesthesia Assessment: Chart Reviewed Documented by User: Wanda Claire MD 02/21/25 11:28 [facility] Past Medical History Medical History (Updated 02/07/25 @ 12:02 by Deandra Montes RN) Adrenal adenoma Elevated cholesterol HTN (hypertension) DJD (degenerative joint disease) Lumbar spondylolysis Cervical spondylosis Arthritis Vitamin D deficiency GERD (gastroesophageal reflux disease) Hypertension Family History Family History Father Hypertension Mother Breast cancer Diabetes Sister Diabetes Family history of problems with anesthesia: No Surgical History Surgical History H/O colonoscopy Hx of hysterectomy S/P cataract extraction History of Problems with Anesthesia: No Social History Social History Household Members Other:: , from [place], 2 sons (one from COVID), Housing: House Are you a primary healthcare corporate account director to a significant other at home: No Do you presently have visiting nurse or other home services: No Patient Tobacco Use Status: Never used Tobacco e-Cigarette/Vaping Use: Never Used Use of substances other than those prescribed or required for medical reasons: No Have you been hit, kicked, punched, or otherwise hurt by someone within the past year? If so, by whom?: No Spiritual Healthcare Practices: no Taoism Healthcare Practices: no-Yarsani Cultural Healthcare Practices: no Are you DNR?: No Advance Directives: No Advance Directives Information Provided: Yes Advance Directives on File: No FDLMP: n/a Current occupational status: retired Current occupation: rt handed Cognitive needs: No Hearing needs: No Vision needs: Yes Meds Allergies Allergy/AdvReac Type Severity Reaction Status Date / Time lisinopril AdvReac Intermediate cough Verified 02/21/25 10:18 tizanidine AdvReac Intermediate Nightmares Verified 02/21/25 10:18 Home Medications ?Medication ?Instructions ?Recorded ?Confirmed ?Last Taken ?Type cyclosporine 0.05 % eye drops in a 1 drp ophthalmic (eye) BEDTIME 04/22/24 02/21/25 Unknown History dropperette (Restasis) Lactobacillus acidophilus 10 10,000 mmu cells PO DAILY 02/07/25 02/21/25 Unknown History billion cell capsule (Probiotic) acetaminophen 650 mg 650 mg PO Q12H PRN Pain 02/07/25 02/21/25 Unknown History tablet,extended release (Tylenol Arthritis Pain) atorvastatin 40 mg tablet 40 mg PO BEDTIME 02/07/25 02/21/25 Unknown History cholecalciferol (vitamin D3) 25 50 mcg PO QAM 02/07/25 02/21/25 Unknown History mcg (1,000 unit) capsule meloxicam 15 mg tablet 15 mg PO QAM 02/07/25 02/21/25 02/14/25 History yerkatyg-ruit-swno 8 mg-folic 400 1 tab PO DAILY 02/07/25 02/21/25 Unknown History mcg-K 50 mcg-lutein 300 mcg tablet (Centrum Silver Women) omeprazole 20 mg capsule,delayed 20 mg PO QAM 02/07/25 02/21/25 02/21/25 History release Exam Airway Mallampati Class: II (multiple crowns) TM Dist: >3cm Neck ROM: Full Heart: rrr Lungs: cta Assessment and Plan Assessment Anesthesia Assessment: Anesthesia Plan Discussed Final Anesthetic Review Family History of Problems with Anesthesia: No History of Problems with Anesthesia: No NPO: Yes ASA Class: II Final Preanesthetic Review: No Changes in Pt Med Stat, Meds/Allgs Chart Reviewed and Consent Obtained/Reviewed Patient Risk: Low Procedure Risk: Low Anesthetic Plan Anesthetic Plan: GA Disposition: Standard PACU
[2025-02-21] VITALS (7 sets, daily range): BP systolic 114–138; BP diastolic 60–81; PULSE 75–83; RESP 16–23; TEMP 36.1–36.4; O2SAT 94–99; BMI 22.9
[2025-02-21] MEDS: Lactated Ringers 1,000 ML 100 ML IVCONT (10:29)
[2025-02-21] MEDS: ceFAZolin Sodium/Dextrose,Iso 2 GM/50 ML PIGGYBACK IV (11:58)
[2025-02-21] MEDS: Acetaminophen 1,000 MG/100 ML PIGGYBACK 400 MG IV (13:00)
--- NOTE | 2025-02-21 13:37 | PM.OP ---
Brief Operative Note Date of Service: 02/21/25 Pre-op diagnosis: Right shoulder impingement syndrome, right shoulder acromioclavicular joint arthritis, right shoulder rotator cuff tear Post-op diagnosis: other (Same as preoperative diagnoses as well as right shoulder long head biceps tendon tear) Procedure: Right shoulder arthroscopic distal clavicle excision, right shoulder arthroscopic acromioplasty, right shoulder arthroscopic biceps tenotomy, right shoulder mini open rotator cuff repair Implants: 1 suture anchor ([employer] Twinfix anchor with #2 Ultrabraid suture) Surgeon: Chin Griffin MD Anesthesia: GETA and regional Was an Habilitation Assistant used for this Procedure?: No Estimated blood loss (mL): 15 Pathology: none sent Condition: stable Disposition: PACU
--- NOTE | 2025-02-21 13:38 | W.PM.OPN ---
Operative Note Operative Note Date of Service: 02/21/25 Narrative: After the patient was identified as Wendi Griffith and her right shoulder was initialed by myself the patient was brought to the holding area where a right shoulder interscalene regional block was performed by the anesthesiologist in routine fashion. The patient was then brought to the operating room where general anesthesia was induced by the anesthesiologist in routine fashion. The patient was given 2 g of IV Ancef preoperatively for infection prophylaxis. Examination under anesthesia of the patient's right shoulder showed full passive range of motion of the patient's right shoulder when compared to the left. The patient was gently positioned in the beach chair position with all bony prominences well padded. The patient's right shoulder region and upper extremity were prepped and draped in sterile fashion. A formal time-out was completed. A #11 scalpel blade was used to make a posterior portal 2 cm inferior and 1 cm medial to the posterolateral corner of the acromion. Blunt trocar technique was used to enter the glenohumeral joint in routine fashion. An anterior portal was made just lateral to the coracoid process after proper positioning was confirmed using a spinal needle. Diagnostic arthroscopy showed minimal degenerative changes of the glenoid and humeral head articular surfaces. There was a full-thickness tear of the supraspinatus tendon. There was tearing of approximately 75% of the biceps tendon. Thus, a biceps tenotomy was performed using the arthroscopic biter and arthroscopic shaver. The arthroscope was then placed from the posterior portal into the subacromial space. A lateral portal was made 2 fingerbreadths lateral to the anterior lateral corner of the acromion. The ArthroCare Wand was used to ablate soft tissues along the undersurface of the acromion as well as to excise the coracoacromial ligament. There was a sharp spur along the undersurface of the acromion which was removed using the hooded bur. The arthroscope was then placed into the lateral portal and the acromioplasty was completed with the bur in the posterior portal using the posterior aspect of the acromion as a cutting block. The ArthroCare Wand was then brought in through the anterior portal and was used to ablate soft tissues along the acromioclavicular joint and distal clavicle. The posterior and superior ligamentous structures were left intact. A distal clavicle excision of 8 mm was performed using the hooded bur. Any remaining bursal tissue was removed using the arthroscopic shaver. The subacromial space was irrigated and then drained. All arthroscopic instruments were removed. Sterile gloves were changed and the shoulder was once again prepped with Betadine. A #15 scalpel blade was used to extend the lateral portal to the lateral edge of the acromion. The subacromial tissues were dissected using electrocautery down to the superficial deltoid fascia. The trocar split in the anterior raphe of the deltoid was then extended to the lateral edge of the acromion using electrocautery and curved Miller scissors. Any remaining bursal tissue was removed using curved Miller scissors. Subacromial and subdeltoid adhesions were bluntly dissected. The undersurface of the acromion was palpated and it was smooth. A #2 Ethibond tag suture was placed into the supraspinatus tendon. The tendon was easily mobilized to its insertion point on the glenoid. The wound was irrigated with copious amounts of normal saline solution. One suture anchor was placed into the greater tuberosity in routine fashion. The rotator cuff repair was then performed using horizontal mattress sutures under minimal tension with the patient's elbow at their side. Following the repair the shoulder was taken through a full range of motion. The repair was stable. The wound was irrigated with copious amounts of normal saline solution. The superficial and deep deltoid fascia were closed with #1 Vicryl [id number] interrupted suture. The wound was once again irrigated. The subcutaneous tissues were closed with 2-0 Vicryl interrupted suture. The skin was closed with 3-0 Prolene subcuticular suture and Steri-Strips. The anterior and posterior portals were closed with 3-0 nylon interrupted suture. Dry sterile dressing was placed over all incisions. The patient's right upper extremity was placed into a sling. The patient was awoken and extubated in the operating room. The patient was transferred to the recovery room in stable condition.
[2025-02-21] MEDS: cefTRIAXone sodium 1 GM VIAL IVPUSH (13:47)
== END 2025-02-21 15:06 | disposition home or self-care (01) ==
PROVIDERS: Anesthesiology; PCP Nurse Practitioner Family; Visit Provider Orthopaedic Surgery
PROC: (CPT 23412; principal; 2025-02-21 12:00)
DX: M75.101 Unspecified rotator cuff tear or rupture of right shoulder, not specified as traumatic (principal); M75.41 Impingement syndrome of right shoulder; S46.111A Strain of muscle, fascia and tendon of long head of biceps, right arm, initial encounter; M25.311 Other instability, right shoulder; M25.511 Pain in right shoulder; M19.011 Primary osteoarthritis, right shoulder; W01.0XXA Fall on same level from slipping, tripping and stumbling without subsequent striking against object, initial encounter; Y93.01 Activity, walking, marching and hiking; Y92.9 Unspecified place or not applicable; Y99.9 Unspecified external cause status; I10 Essential (primary) hypertension; E55.9 Vitamin D deficiency, unspecified; K21.9 Gastro-esophageal reflux disease without esophagitis; Z79.1 Long term (current) use of non-steroidal anti-inflammatories (NSAID); Z79.899 Other long term (current) drug therapy; Z88.8 Allergy status to other drugs, medicaments and biological substances
CPT/HCPCS: 23412; 29826; 29824; 29822; 36415; 80048; 85027; 93005; C1713; J0131; J0171; J0665; J0690; J0696; J1100; J2003; J2250; J2405; J2704; J2795

== ENCOUNTER → 2025-02-21 09:56 | Outpatient (BNV) | payer MEDICARE, SELFPAY | PROVIDERS: PCP Nurse Practitioner Family; Visit Provider Orthopaedic Surgery | DX: M75.41 Impingement syndrome of right shoulder (principal); M19.011 Primary osteoarthritis, right shoulder; S46.011A Strain of muscle(s) and tendon(s) of the rotator cuff of right shoulder, initial encounter | CPT/HCPCS: 23412; 29824 ==

== ENCOUNTER 2025-03-06 11:31 | Outpatient (AMB) | payer MEDICARE, SELFPAY ==
--- NOTE | 2025-03-06 11:39 | A.OFFVIS_ITS ---
Vital Signs 03/06/25 11:40 Height 5 ft 3 in Weight 129 lb BMI 22.8 Intake Visit Reasons: PO RT shoulder 02/21/25 DR Intake Note: Wendi is an 80 year old female who presents today for her first post-operative visit after undergoing right shoulder arthroscopic surgery on 02/21/25. She reports mild to moderate discomfort in her right shoulder. She denies any fevers or chills. She has been resting her shoulder as per my instructions. She is no longer taking narcotics for her discomfort. Allergies lisinopril Adverse Reaction (Intermediate, Verified 03/06/25 11:54) cough tizanidine Adverse Reaction (Intermediate, Verified 03/06/25 11:54) Nightmares Medication List - Last Reconciled 03/06/25 by Chin Griffin MD acetaminophen ER (Tylenol Arthritis Pain) 650 mg PO Q12H PRN atorvastatin 40 mg PO BEDTIME cholecalciferol (vitamin D3) 50 mcg PO QAM cyclosporine 0.05% (Restasis) 1 drp ophthalmic (eye) BEDTIME docusate sodium (Dulcolax Stool Softener (docusate)) 100 mg PO BID 30 days Lactobacillus acidophilus (Probiotic) 10,000 mmu cells PO DAILY magnesium glycinate 200 mg (2 x 100 mg) PO DAILY 30 days meloxicam 15 mg PO QAM adjzzujc-kyp-klpd-FA-vit K-lut 8 mg iron-400 mcg-50 mcg (Centrum Silver Women) 1 tab PO DAILY olmesartan 20 mg PO DAILY omeprazole 20 mg PO QAM PFSH Medical History (Updated 02/07/25 @ 12:02 by Deandra Montes RN) Adrenal adenoma Elevated cholesterol HTN (hypertension) DJD (degenerative joint disease) Lumbar spondylolysis Cervical spondylosis Arthritis Vitamin D deficiency GERD (gastroesophageal reflux disease) Hypertension Surgical History H/O colonoscopy Hx of hysterectomy S/P cataract extraction Family History Father Hypertension Mother Breast cancer Diabetes Sister Diabetes Social History Household Members Other:: , from [place], 2 sons (one from COVID), Housing: House Are you a primary child day care teacher to a significant other at home: No Do you presently have visiting nurse or other home services: No Patient Tobacco Use Status: Never used Tobacco e-Cigarette/Vaping Use: Never Used Current occupational status: retired Current occupation: rt handed Cognitive needs: No Hearing needs: No Vision needs: Yes Physical Exam Vital Signs: BMI result Body Mass Index 22.8 Extrem Other: Right shoulder exam shows that the surgical incisions are healing well, no erythema, mild discomfort with gentle passive range of motion Assessment & Plan Assessment & Plan (1) Rotator cuff insufficiency of right shoulder: Code(s): M25.311 - Other instability, right shoulder Category: Medical Plan Ms. Griffith is doing well after undergoing right shoulder rotator cuff repair surgery on 02/21/2025. Her sutures were removed and Steri-Strips placed over her incisions. I did give her a prescription to go to formal physical therapy for passive range of motion exercises only. I will hold off on active lifting until she is 8 weeks out from surgery. I will see her back at that time. Feel free to call me at any time should questions regarding her orthopedic management arise. Orders: Orders PT Evaluation and Treatment 03/10/25 M25.311 - Other instability, right shoulder Coding Level of Care Code Global (51381) Diagnoses Rotator cuff insufficiency of right shoulder M25.311
[2025-03-06 11:40] VITALS: BMI 22.8
== END 2025-03-06 12:31 | disposition home or self-care (01) ==
LOC: HO.HOS 11:31
PROVIDERS: PCP Nurse Practitioner Family; Visit Provider Orthopaedic Surgery
DX: M25.311 Other instability, right shoulder (principal)
CPT/HCPCS: 99024

== ENCOUNTER → 2025-03-06 11:31 | Outpatient (BNVA) | payer MEDICARE, SELFPAY | PROVIDERS: PCP Nurse Practitioner Family; Visit Provider Orthopaedic Surgery | DX: M25.311 Other instability, right shoulder (principal) | CPT/HCPCS: 99212 ==

== ENCOUNTER 2025-04-17 08:24 | Outpatient (AMB) | payer MEDICARE, SELFPAY ==
--- NOTE | 2025-04-17 08:28 | MHC.OFFVIS ---
Intake Visit Reasons: PO RT shoulder 02/21/25 DR Intake Note: Wendi is a 80 year old female who presents today as a post op of her right shoulder 02/21/25 DR. At last visit we discussed and ordered physical therapy,03/06/25. Patient states that she is doing well with some mild pain. Her pain increases after physical therapy. Additionally she mentions that her left shoulder has become painful and stiff which she believes has onset due to overuse - she is interested in physical therapy for this as well. Allergies lisinopril Adverse Reaction (Intermediate, Verified 04/17/25 08:34) cough tizanidine Adverse Reaction (Intermediate, Verified 04/17/25 08:34) Nightmares Medication List - Last Reconciled 04/17/25 by Chin Griffin MD acetaminophen ER (Tylenol Arthritis Pain) 650 mg PO Q12H PRN atorvastatin 40 mg PO BEDTIME cholecalciferol (vitamin D3) 50 mcg PO QAM cyclosporine 0.05% (Restasis) 1 drp ophthalmic (eye) BEDTIME docusate sodium (Dulcolax Stool Softener (docusate)) 100 mg PO BID 30 days Lactobacillus acidophilus (Probiotic) 10,000 mmu cells PO DAILY magnesium glycinate 200 mg (2 x 100 mg) PO DAILY 30 days meloxicam 15 mg PO QAM yewnprco-ssw-xtpv-FA-vit K-lut 8 mg iron-400 mcg-50 mcg (Centrum Silver Women) 1 tab PO DAILY olmesartan 20 mg PO DAILY omeprazole 20 mg PO QAM PFSH Medical History (Updated 04/17/25 @ 08:39 by Chin Griffin MD) Adrenal adenoma Elevated cholesterol HTN (hypertension) DJD (degenerative joint disease) Lumbar spondylolysis Cervical spondylosis Arthritis Vitamin D deficiency GERD (gastroesophageal reflux disease) Hypertension Surgical History H/O colonoscopy Hx of hysterectomy S/P cataract extraction Family History Father Hypertension Mother Breast cancer Diabetes Sister Diabetes Social History Household Members Other:: , from [place], 2 sons (one from COVID), Housing: House Are you a primary resident care aide to a significant other at home: No Do you presently have visiting nurse or other home services: No Patient Tobacco Use Status: Never used Tobacco e-Cigarette/Vaping Use: Never Used Current occupational status: retired Current occupation: rt handed Cognitive needs: No Hearing needs: No Vision needs: Yes Physical Exam Extrem Other: Right shoulder examination shows that the surgical incisions are well healed, no erythema, full passive range of motion when compared to her left shoulder, minimal discomfort with resisted forward flexion, no discomfort with resisted internal or external rotation Assessment & Plan Assessment & Plan (1) Rotator cuff insufficiency of right shoulder: Code(s): M25.311 - Other instability, right shoulder Category: Medical Plan Ms. Griffith continues to do well after undergoing right shoulder rotator cuff repair surgery on 02/21/2025. She can now begin gentle active range of motion exercises. I also gave her a prescription to have physical therapy on her left shoulder as well. The do's and don'ts of lifting were discussed at length with the patient. She will contact me prior to her follow-up appointment in 2-3 months should any questions or concerns arise. Feel free to call me at any time should questions regarding her orthopedic management arise. Orders: Orders PT Evaluation and Treatment Today M25.311 - Other instability, right shoulder, M75.42 - Impingement syndrome of left shoulder Coding Level of Care Code Global (22784) Diagnoses Rotator cuff insufficiency of right shoulder M25.311
--- OUTSIDE RECORDS SUMMARY | 2025-04-17 08:33 | XMS_ITS ---
Author Name [facility] Organization Unknown Care Team Organization Name Specialty Phone Email Start Date End Da te [facility] 07/26/20222023
== END 2025-04-17 08:46 | disposition home or self-care (01) ==
LOC: HO.HOS 08:25
PROVIDERS: PCP Nurse Practitioner Family; Visit Provider Orthopaedic Surgery
DX: M25.311 Other instability, right shoulder (principal)
CPT/HCPCS: 99024

== ENCOUNTER → 2025-04-17 08:24 | Outpatient (BNVA) | payer MEDICARE, SELFPAY | PROVIDERS: PCP Nurse Practitioner Family; Visit Provider Orthopaedic Surgery | DX: M25.511 Pain in right shoulder (principal); M25.311 Other instability, right shoulder; Z98.890 Other specified postprocedural states | CPT/HCPCS: 99212 ==

== ENCOUNTER 2025-06-04 09:00 | Outpatient (RCR) | payer MEDICARE, SELFPAY ==
--- NOTE | 2025-04-08 09:45 | MHC.PT.EP ---
[facility] [place] Office [place] Office [place] Office [address] Gwen Diane [address] [phone] F: [phone] F: [phone] F: [phone] F: [phone] Physical Therapy Plan of Care Date of Evaluation: 04/08/25 Date of Surgery: 03/06/25 Diagnosis: This is an 80 yo female presenting to skilled PT with a script for R shoulder RTC repair on 02/21/25. Assessment: This is an 80 yo female presenting to skilled PT with a script for R shoulder RTC repair on 02/21/25. Surgery performed by Dr. Griffin. Patient saw the surgeon on 03/06 after a fall at the beginning of the year: Ms. Griffith is doing well after undergoing right shoulder rotator cuff repair surgery on 02/21/2025. Her sutures were removed and Steri-Strips placed over her incisions. I did give her a prescription to go to formal physical therapy for passive range of motion exercises only. I will hold off on active lifting until she is 8 weeks out from surgery. I will see her back at that time. Feel free to call me at any time should questions regarding her orthopedic management arise. She returns on 04/17. Procedure included right shoulder arthroscopic distal clavicle excision, arthroscopic acromioplasty, arthroscopic biceps tenotomy and mini open rotator cuff repair (full thickness tear of supraspinatus). She is here today without a sling, there is nothing in the MD's note about wearing a sling but the patient reports that she is not supposed to be in one. Pain is now located anterior GHJ, humerus and upper trap, described as better than prior to the surgery. Pain with movement is sharp. She had home PT until last week (pendulums, shoulder rolls, self PROM). Assessment reveals pain that ranges from up to a 4/10 at the worst. Patient demos decreased R shoulder and cervical ROM, strength of B shoulder's, TTP at GHJ joint line, UT and impaired posture with forward head and rounded shoulders. Based on functional limitations, impaired QOL and pain tolerance patient is a good candidate for skilled PT 2x/wk for 5wks. Frequency and Duration: The patient will be seen 2x/wk for 5wks Short Term Goals: (In 2 weeks) Demo I with HEP Demo WFL PROM Demo good understanding of prevention of upper trap compensation Urban Sociologist Goals: (in 5 wks) Improve shoulder nonpainful AROM to almost near equal B Demo at least 1 grade improvement in MMT for shoulder Improve SPADI by at least 10 points Improve overall functional QOL by at least 75% Improve pain to no more than a 2/10 Treatment Plan: Modalities to reduce pain, spasms and effusion. Manual therapy to restore motion and function. Therapeutic exercise to improve strength and flexibility. Neuromuscular re-education for posture and balance. Therapeutic activities to return to functional activities of daily living. Electronically signed by: Lashell Mcclellan PT Please sign and return to therapist. Thank you for your referral.
--- NOTE | 2025-06-12 07:59 | MHC.PT.DC ---
[facility] [place] Office [place] Office [place] Office [address] Gwen Diane [address] [phone] F: [phone] F: [phone] F: [phone] F: [phone] Physical Therapy Discharge Report Diagnosis: This is an 80 yo female presenting to skilled PT with a script for R shoulder RTC repair on 02/21/25. Date of Surgery: 03/06/25 Date of Evaluation: 04/08/25 Date of Discharge: 06/12/25 Treatments to Date: 16 Cancellations to Date: 0 No Shows to Date: 0 Discharge Status: Achieved Goals Improved Function Independent with HEP Patient Elected to Stop Discharge Summary: Patient has come to 16 visits of PT. She is not requiring manual therapy or modalities at this point anymore. She is back to her usual ADLs and housework as well as driving. She demos WFL ROM and strength and pain is well managed. During our therapy course for her R repair we also worked on her L shoulder which did not seem to improve with therapy. At this time patient to DC to [facility] and follow up with MD about her non-op side for further management. Saw ortho and will be getting an MRI on her opposite shoulder. Chart DC'd Electronically signed by: Lashell Mcclellan PT Please sign and return to therapist. Thank you for your referral.
== END 2025-06-12 07:59 | disposition home or self-care (01) ==
LOC: HO.PTCHIC 09:00
PROVIDERS: PCP Nurse Practitioner Family; Visit Provider Orthopaedic Surgery
DX: M25.311 Other instability, right shoulder (principal); M75.42 Impingement syndrome of left shoulder; Z98.890 Other specified postprocedural states
CPT/HCPCS: 97110; 97140; 97162

== ENCOUNTER 2025-06-05 08:19 | Outpatient (AMB) | payer MEDICARE, SELFPAY ==
[2025-06-05 08:44] VITALS: BMI 22.5
--- NOTE | 2025-06-05 08:44 | A.OFFVIS_ITS ---
Vital Signs 06/05/25 08:44 Height 5 ft 3 in Weight 127 lb BMI 22.5 Intake Visit Reasons: OV: RT shoulder 02/21/25 , Left shoulder pain and weakness Intake Note: Wendi is an 80 year old woman who presents with complaints of progressively worsening left shoulder pain and weakness. The patient did undergo right shoulder rotator cuff repair surgery on 02/21/2025. She reports minimal discomfort in her right shoulder. She describes her left shoulder pain as sharp and severe in nature. She did injure her left shoulder while lifting a heavy object approximately 1 year ago. She has failed the last 6 weeks of conservative treatment which has included Tylenol, anti-inflammatory medicines, physical therapy and a home exercise program. The patient reports difficulty lifting her left hand above shoulder height. Allergies lisinopril Adverse Reaction (Intermediate, Verified 06/05/25 08:49) cough tizanidine Adverse Reaction (Intermediate, Verified 06/05/25 08:49) Nightmares Medication List - Last Reconciled 06/05/25 by Chin Griffin MD acetaminophen ER (Tylenol Arthritis Pain) 650 mg PO Q12H PRN atorvastatin 40 mg PO BEDTIME cholecalciferol (vitamin D3) 50 mcg PO QAM cyclosporine 0.05% (Restasis) 1 drp ophthalmic (eye) BEDTIME docusate sodium (Dulcolax Stool Softener (docusate)) 100 mg PO BID 30 days Lactobacillus acidophilus (Probiotic) 10,000 mmu cells PO DAILY magnesium glycinate 200 mg (2 x 100 mg) PO DAILY 30 days meloxicam 15 mg PO QAM nxgxppie-nsd-ocrn-FA-vit K-lut 8 mg iron-400 mcg-50 mcg (Centrum Silver Women) 1 tab PO DAILY olmesartan 20 mg PO DAILY omeprazole 20 mg PO QAM PFSH Medical History (Updated 06/05/25 @ 09:02 by Chin Griffin MD) Adrenal adenoma Elevated cholesterol HTN (hypertension) DJD (degenerative joint disease) Lumbar spondylolysis Cervical spondylosis Arthritis Vitamin D deficiency GERD (gastroesophageal reflux disease) Hypertension Surgical History H/O colonoscopy Hx of hysterectomy S/P cataract extraction Family History Father Hypertension Mother Breast cancer Diabetes Sister Diabetes Social History Household Members Other:: , from [place], 2 sons (one from COVID), Housing: House Are you a primary health care consultant to a significant other at home: No Do you presently have visiting nurse or other home services: No Patient Tobacco Use Status: Never used Tobacco e-Cigarette/Vaping Use: Never Used Current occupational status: retired Current occupation: rt handed Cognitive needs: No Hearing needs: No Vision needs: Yes Physical Exam Vital Signs: BMI result Body Mass Index 22.5 Const Other: Well-nourished well-developed very friendly female awake alert and oriented x3 in no acute distress Extrem Other: Left shoulder examination shows decreased range of motion when compared to her right shoulder, 4/5 strength with supraspinatus testing, positive impingement signs, tenderness over her acromioclavicular joint, no instability Assessment & Plan Assessment & Plan (1) Rotator cuff insufficiency of left shoulder: Code(s): M25.312 - Other instability, left shoulder Category: Medical Plan Ms. Griffith presents with progressively worsening left shoulder pain and weakness due to impingement syndrome and possible rotator cuff tearing. Thus, I will send the patient for an MRI of her left shoulder for further evaluation. I will see her back once the MRI is completed to discuss the findings and treatment options. Feel free to call me at any time should questions regarding her orthopedic management arise. I spent 22 minutes in reviewing the patient's records and imaging studies, seeing the patient and documenting in the medical record. Orders: Orders MR shoulder LT wo con 06/06/25 M25.312 - Other instability, left shoulder Coding Level of Care Code Est Pt Level 3 (76411) Complex EM visit Add On G2211 Diagnoses Rotator cuff insufficiency of left shoulder M25.312
== END 2025-06-05 08:59 | disposition home or self-care (01) ==
LOC: HO.HOS 08:20
PROVIDERS: PCP Nurse Practitioner Family; Visit Provider Orthopaedic Surgery
DX: M25.312 Other instability, left shoulder (principal)
CPT/HCPCS: 99213; G2211

== ENCOUNTER → 2025-06-05 08:19 | Outpatient (BNVA) | payer MEDICARE, SELFPAY | PROVIDERS: PCP Nurse Practitioner Family; Visit Provider Orthopaedic Surgery | DX: M25.312 Other instability, left shoulder (principal) | CPT/HCPCS: 99212 ==

== ENCOUNTER → 2025-06-27 07:11 | Outpatient (BNV) | payer MEDICARE, SELFPAY | PROVIDERS: Visit Provider Radiology Diagnostic Radiology | DX: M75.112 Incomplete rotator cuff tear or rupture of left shoulder, not specified as traumatic (principal); M19.012 Primary osteoarthritis, left shoulder | CPT/HCPCS: 73221 ==

== ENCOUNTER 2025-06-27 07:12 | Outpatient (REF) | payer MEDICARE, SELFPAY ==
--- NOTE | ~2025-06-27 | MR_ITS ---
CLINICAL HISTORY: M25.312 - Other instability, left shoulder MR left shoulder without gadolinium Comparison: None provided Findings: No acute fractures. No pathologic bone lesions. Mild glenohumeral and moderate acromioclavicular joint osteoarthritis. Type II acromion. No joint effusion. Mild T2 signal elevation diffusely throughout the supraspinatus and infraspinatus tendons at the humeral insertion site extending to the musculotendinous junction, indicating tendinopathy. Superimposed low-grade bursal surface and intrasubstance tearing of the anterior, mid, and posterior supraspinatus tendon at the humeral insertion site extending to the musculotendinous junction. Low-grade articular surface tearing of the inferior infraspinatus tendon at the humeral insertion site extending to the musculotendinous junction. Subscapularis and teres minor tendons are intact. No tears of the long head of biceps tendon. No tears of the glenoid labrum. IMPRESSION: 1. Supraspinatus and infraspinatus tendinopathy with superimposed partial-thickness tearing. No full-thickness rotator cuff tear. 2. Acromioclavicular and glenohumeral joint osteoarthritis. This document has been electronically signed by: Shayy Perez MD on 06/27/2025 18:57:04
== END 2025-06-27 07:13 | disposition home or self-care (01) ==
LOC: HO.MRI 07:12
PROVIDERS: Visit Provider Orthopaedic Surgery
DX: M25.312 Other instability, left shoulder (principal)
CPT/HCPCS: 73221

== ENCOUNTER 2025-07-03 08:04 | Outpatient (REF) | payer MEDICARE, SELFPAY | END 2025-07-03 08:05 | disposition home or self-care (01) | LOC: HO.MAMMO 08:04 | PROVIDERS: PCP Nurse Practitioner Family; Visit Provider Nurse Practitioner Family | DX: Z12.31 Encounter for screening mammogram for malignant neoplasm of breast (principal) | CPT/HCPCS: 77063; 77067 ==

== ENCOUNTER → 2025-07-03 08:30 | Outpatient (BNV) | payer MEDICARE, SELFPAY | PROVIDERS: PCP Nurse Practitioner Family; Visit Provider Radiology Body Imaging | DX: Z12.31 Encounter for screening mammogram for malignant neoplasm of breast (principal) | CPT/HCPCS: 77063; 77067 ==

== ENCOUNTER 2025-07-16 08:57 | Outpatient (AMB) | payer MEDICARE, SELFPAY ==
--- NOTE | 2025-07-16 08:59 | A.OFFVIS_ITS ---
Intake Visit Reasons: OV- Left shoulder MRI review. Intake Note: Wendi is an 80 year old woman who presents with complaints of progressively worsening left shoulder pain and weakness. The patient did undergo right shoulder rotator cuff repair surgery on 02/21/2025. She reports minimal discomfort in her right shoulder. She describes her left shoulder pain as sharp and severe in nature. She did injure her left shoulder while lifting a heavy object approximately 1 year ago. She has failed the last 6 weeks of conservative treatment which has included Tylenol, anti-inflammatory medicines, physical therapy and a home exercise program. The patient reports difficulty lifting her left hand above shoulder height. Allergies lisinopril Adverse Reaction (Intermediate, Verified 06/05/25 08:49) cough tizanidine Adverse Reaction (Intermediate, Verified 06/05/25 08:49) Nightmares Medication List - Last Reconciled 07/16/25 by Chin Griffin MD acetaminophen ER (Tylenol Arthritis Pain) 650 mg PO Q12H PRN atorvastatin 40 mg PO BEDTIME cholecalciferol (vitamin D3) 50 mcg PO QAM cyclosporine 0.05% (Restasis) 1 drp ophthalmic (eye) BEDTIME docusate sodium (Dulcolax Stool Softener (docusate)) 100 mg PO BID 30 days Lactobacillus acidophilus (Probiotic) 10,000 mmu cells PO DAILY magnesium glycinate 200 mg (2 x 100 mg) PO DAILY 30 days meloxicam 15 mg PO QAM fddrrxnm-sdn-cgue-FA-vit K-lut 8 mg iron-400 mcg-50 mcg (Centrum Silver Women) 1 tab PO DAILY olmesartan 20 mg PO DAILY omeprazole 20 mg PO QAM PFSH Medical History Adrenal adenoma Elevated cholesterol HTN (hypertension) DJD (degenerative joint disease) Lumbar spondylolysis Cervical spondylosis Arthritis Vitamin D deficiency GERD (gastroesophageal reflux disease) Hypertension Surgical History H/O colonoscopy Hx of hysterectomy S/P cataract extraction Family History Father Hypertension Mother Breast cancer Diabetes Sister Diabetes Social History Household Members Other:: , from [place], 2 sons (one from COVID), Housing: House Are you a primary healthcare sales representative to a significant other at home: No Do you presently have visiting nurse or other home services: No Patient Tobacco Use Status: Never used Tobacco e-Cigarette/Vaping Use: Never Used Current occupational status: retired Current occupation: rt handed Cognitive needs: No Hearing needs: No Vision needs: Yes Physical Exam Extrem Other: Left shoulder examination shows slightly decreased range of motion when compared to her right shoulder, 4/5 strength with supraspinatus testing, positive impingement signs, tenderness over her acromioclavicular joint, no instability Results Reviewed Results Reviewed: MRI of the patient's left shoulder show severe acromioclavicular joint narrowing , a type 2 acromion, a full-thickness supraspinatus tendon tear Assessment & Plan Assessment & Plan (1) Rotator cuff insufficiency of left shoulder: Code(s): M25.312 - Other instability, left shoulder Category: Medical Plan Ms. Griffith presents with left shoulder pain and weakness due to impingement syndrome, acromioclavicular joint arthritis and a full-thickness rotator cuff tear. I had a lengthy discussion with the patient regarding the treatment options. She wishes to hold off on surgery for now. She will continue with her gajji-iy-zladsz exercises to prevent stiffness. She will contact me prior to her follow-up appointment in 2-3 months should any questions or concerns arise. Feel free to call me at any time should questions regarding her orthopedic management arise. I spent 20 minutes in reviewing the patient's records and imaging studies, seeing the patient and documenting in the medical record. Medications: New acetaminophen ER (Tylenol 8 Hour) 650 mg PO Q8H PRN 270 tabs 2RF pain acetaminophen ER (Tylenol 8 Hour) 650 mg PO Q8H PRN 90 tabs 2RF pain Coding Level of Care Code Est Pt Level 3 (76280) Complex EM visit Add On G2211 Diagnoses Rotator cuff insufficiency of left shoulder M25.312
== END 2025-07-16 09:19 | disposition home or self-care (01) ==
LOC: HO.HOS 08:58
PROVIDERS: Visit Provider Orthopaedic Surgery
DX: M25.312 Other instability, left shoulder (principal)
CPT/HCPCS: 99213; G2211

== ENCOUNTER → 2025-07-16 08:57 | Outpatient (BNVA) | payer MEDICARE, SELFPAY | PROVIDERS: Visit Provider Orthopaedic Surgery | DX: M25.312 Other instability, left shoulder (principal) | CPT/HCPCS: 99212 ==